=== PATIENT | male | born 1960 | race African-American/Black ===

== ENCOUNTER 2017-04-27 10:51 | Emergency (ER) | payer OTHER ==
--- NOTE | 2017-04-27 11:14 | PDOC ---
History of Present Illness - General Stated Complaint: LEG PAIN Time Seen by Provider: 04/27/17 11:12 History Source: Patient, Old Records Exam Limitations: No Limitations - History of Present Illness Initial Comments: 04/27/17 11:14 CHIEF COMPLAINT: Foot pain HISTORY OF PRESENT ILLNESS: This is a 56 year old male with a history of HTN, IDDM, and chronic left foot ulcers complicated by osteomyelitis and left great toe amputation in 2016 who presents complaining of worsening left foot pain for several weeks. He has been following closely with podiatry and wound care here and was scheduled for arterial and venous vascular studies today. He missed his appointment and is hoping to have the test done now. He denies fevers, redness around the wound, pus/discharge, or any other symptoms. V/s on arrival are notable for mildly elevated BP at 158/91. REVIEW OF SYSTEMS: GENERAL/CONSTITUTIONAL: No fever or chills. No weakness. No weight change. HEAD, EYES, EARS, NOSE AND THROAT: No change in vision. No ear pain or discharge. No sore throat. CARDIOVASCULAR: No chest pain or palpitations. RESPIRATORY: No cough, wheezing, or shortness of breath. GASTROINTESTINAL: No nausea, vomiting, diarrhea or constipation. GENITOURINARY: No dysuria, frequency, or change in urination. MUSCULOSKELETAL: No joint or muscle swelling or pain. No neck or back pain. SKIN: See HPI. NEUROLOGIC: No headache, vertigo, loss of consciousness, or loss of sensation. PSYCHIATRIC: No depression or anxiety. ENDOCRINE: No increased thirst. No abnormal weight change. HEMATOLOGIC/LYMPHATIC: No anemia, easy bleeding, or history of blood clots. ALLERGIC/IMMUNOLOGIC: No hives or skin allergy. No latex allergy. PHYSICAL EXAM: GENERAL: The patient is awake, alert, and fully oriented, in no acute distress. HEAD: Normal with no signs of trauma. ENT: Pupils equal, round and reactive to light, extraocular movements intact, sclera anicteric, conjunctiva clear. Neck supple. LUNGS: Clear to auscultation bilaterally. Normal excursion. No respiratory distress or use of accessory muscles. CV: RRR, S1/S2, no MRG. Cap refill < 2 sec. ABDOMEN: Soft, non-distended, non-tender. EXTREMITIES: Normal range of motion, no edema. NEUROLOGICAL: Normal speech, normal gait. CN II-XII grossly intact. PSYCH: Normal mood, normal affect. SKIN: 6 cm x 1.5cm open ulceration at base of amuptated left great toe with granulation tissue. No probing to bone. No discharge or purulence. No surrounding erythema. No tenderness to palpation. Past History - Past Medical History Allergies/Adverse Reactions: Allergies Allergy/AdvReac Type Severity Reaction Status Date / Time No Known Allergies Allergy Verified 04/27/17 11:15 Home Medications: Ambulatory Orders Insulin (Novolog) [Novolog -] 100 units SQ ASDIR 07/13/16 Furosemide [Lasix -] 40 mg PO DAILY 07/28/16 Glyburide 5 mg PO DAILY 07/28/16 Metformin HCl [Metformin HCl ER] 1,000 mg PO DAILY 07/28/16 Acetaminophen [Tylenol .Regular Strength -] 650 mg PO Q6H PRN #0 tablet Amlodipine Besylate [Norvasc -] 5 mg PO DAILY #0 tablet 08/08/16 Levothyroxine [Synthroid -] 50 mcg PO DAILY@0700 #0 tablet 08/08/16 Losartan Potassium [Cozaar -] 50 mg PO DAILY #0 tablet 08/08/16 Oxycodone HCl [Roxicodone -] 10 mg PO Q6H PRN #0 tablet MDD 40 08/08/16 Sitagliptin Phosphate [Januvia -] 100 mg PO DAILY@0700 #0 ud 08/08/16 Collagenase Clostridium Hist. [Santyl] 1 applic TP DAILY #90 oint...g. 12/16/16 Collagenase Clostridium Hist. [Santyl] 90 gm TP DAILY #1 tube 01/27/17 Asthma: Yes Diabetes: Yes Seizures: Yes - Surgical History Abdominal Surgery: Yes (UMBILICAL HERNIA) - Psycho/Social/Smoking Cessation Hx Anxiety: No Suicidal Ideation: No Smoking Status: Yes Smoking History: Former smoker Have you smoked in the past 12 months: No Number of Cigarettes Smoked Daily: 0 If you are a former smoker, when did you quit?: 3 YRS Hx Alcohol Use: No Drug/Substance Use Hx: No Substance Use Type: None Medical Decision Making - Medical Decision Making 04/27/17 12:03 A/P: 56 year old male with chronic left foot diabetic ulcer. -Discussed with Dr. Russell, will see patient in wound clinic now -Declines analgesia -Return precautions reviewed *DC/Admit/Observation/Transfer Diagnosis at time of Disposition: Diabetic foot ulcer Qualifiers: Diabetic foot ulcer location: midfoot Diabetes mellitus type: type 2 Laterality : left Non-pressure ulcer stage: limited to breakdown of skin Qualified Code(s) : E11.621 - Type 2 diabetes mellitus with foot ulcer - Discharge Dispostion Admit: No - Referrals Referrals: Puma Russell MD [Staff Physician] - - Patient Instructions Printed Discharge Instructions: DI for Diabetic Foot Ulcer Additional Instructions: -Go directly to the Wound Clinic on the 4th floor for further evaluation -Return here for fever, redness around the wound, pus coming from the wound, or any other concerning symptoms
[2017-04-27 11:18] VITALS: BP 158/91; PULSE 69; BMI 39.4
[2017-04-27 11:36] VITALS: TEMP 98.1
== END 2017-04-27 12:34 | disposition home or self-care (01) ==
LOC: JER 10:51
DX: E11.621 Type 2 diabetes mellitus with foot ulcer (principal); L97.521 Non-pressure chronic ulcer of other part of left foot limited to breakdown of skin; Z79.4 Long term (current) use of insulin; Z79.84 Long term (current) use of oral hypoglycemic drugs; E03.9 Hypothyroidism, unspecified; J45.909 Unspecified asthma, uncomplicated; I10 Essential (primary) hypertension
CPT/HCPCS: 99281-25

== ENCOUNTER 2017-05-28 12:06 | Day surgery (SDC) | payer OTHER ==
[2017-05-26 15:16] VITALS: BMI 46.3
[2017-05-28] MEDS ORDERED: LIDOCAINE HCL 1%, 10 MG/ML (20ML VIAL) ONE (12:19)
[2017-05-28] MEDS ORDERED: MIDAZOLAM HCL 2 MG/2 ML SINGLE DOSE VIAL ONE (13:26)
[2017-05-28] MEDS ORDERED: PROPOFOL 20 ML ONE (13:44)
[2017-05-28] MEDS ORDERED: ceFAZolin SODIUM 1 GM VIAL IVPB ONE (13:50)
[2017-05-28] MEDS ORDERED: ceFAZolin SODIUM 1 GM VIAL ONE ×2 (13:53→13:59)
[2017-05-28] MEDS ORDERED: MINERAL OIL 25 ML OIL ONE (13:59)
[2017-05-28] MEDS ORDERED: oxyCODONE HCL 5 MG TABLET PO PRN (14:23)
[2017-05-28] MEDS ORDERED: ONDANSETRON 4 MG/2 ML VIAL IVPUSH PRN (14:23)
--- NOTE | 2017-05-28 14:26 | OP ---
Operative Note - Note: Operative Date: 05/28/17 Pre-Operative Diagnosis: chronic left foot wound Operation: left foot STSG 3 cm squared Findings: clean base of wound Post-Operative Diagnosis: Same as Pre-op Surgeon: Shane Matos Anesthesia: Spinal Specimens Removed: none Estimated Blood Loss (mls): 0 Instrument used (Debridements only): curette
[2017-05-28] MEDS ORDERED: LACTATED RINGERS SOLUTION 1,000 ML IV SCH (14:30)
--- NOTE | 2017-05-28 15:12 | OP ---
DATE OF OPERATION: 05/28/2017 PREOPERATIVE DIAGNOSIS: Chronic left foot wound. POSTOPERATIVE DIAGNOSIS: Chronic left foot wound. PROCEDURE PERFORMED: Split thickness skin graft of the left foot 3 cm sq. SURGEON: Shane Matos MD UTILITY WORKER PRODUCTION: None. ESTIMATED BLOOD LOSS: Minimal. SPECIMEN: None. DESCRIPTION OF THE PROCEDURE: The patient was brought to the operating room. Spinal anesthetic was then inserted by Anesthesia. The patients left foot and thigh were prepped and draped in the usual sterile fashion. The wound bed on the first metatarsal area was curetted to repair it. It was measured at 3 x 1 cm. An appropriate area of skin was marked on the left thigh covered with mineral oil and a dermatome was used to shave a piece of skin with a thickness of 0.010. This was meshed and then placed onto the wound bed and secured in place using zhang. Good hemostasis was noted. Xeroform was applied to both beds. The heart side was covered with 4 x 4s and tape. The wound was covered with and 4 x 4s carefully secured in place using Kerlix and LEENA bandages. The patient was transferred to PACU in stable condition. Obdulio [id number]
[2017-05-28 16:10] VITALS: TEMP 97.6
[2017-05-28 17:20] VITALS: BP 147/92; PULSE 77
== END 2017-05-28 17:23 | disposition home or self-care (01) ==
LOC: JASU-SURG 12:06
PROVIDERS: ATTEND Surgery Vascular Surgery
PROC: 0HRNX74 Replacement of Left Foot Skin with Autologous Tissue Substitute, Partial Thickness, External Approach (ICD-10-PCS; principal; 2017-05-28 13:00)
DX: L98.499 Non-pressure chronic ulcer of skin of other sites with unspecified severity (principal)
CPT/HCPCS: 94760

== ENCOUNTER 2019-10-17 10:00 | Inpatient (IN) | payer MEDICARE, OTHER ==
--- NOTE | 2019-10-17 11:25 | EKG ---
Test Reason : Blood Pressure : / mmHG Vent. Rate : 085 BPM Atrial Rate : 085 BPM P-R Int : 140 ms QRS Dur : 084 ms QT Int : 348 ms P-R-T Axes : 040 -10 053 degrees QTc Int : 414 ms NORMAL SINUS RHYTHM NORMAL ECG WHEN COMPARED WITH ECG OF 28-JUL-2016 11:35, NONSPECIFIC T WAVE ABNORMALITY NO LONGER EVIDENT IN ANTERIOR LEADS Confirmed by Caro Noble ([id number]) on 10/17/2019 11:25:20 AM Referred By: Confirmed By:Caro Noble
--- NOTE | 2019-10-17 12:16 | PDOC ---
History of Present Illness - General Chief Complaint: SIRS, Suspected/Possible Stated Complaint: SHORTNESS OF BREATH VOMITING COUGH Time Seen by Provider: 10/17/19 10:16 History Source: Patient Exam Limitations: No Limitations - History of Present Illness Initial Comments: 10/17/19 12:14 59M with a PMH of HTN, DM, and hypothyroidism who presents to the ER with complaints of shortness of breath. The patient states that he's had 1 week of worsening shortness of breath. The shortness of breath is resting and with exertion, as well as orthopneic. The patient denies CP, fever, chills, productive cough, palpitations, lightheadedness. He admits to 5-6 bouts of NBNB vomiting, as well as 2-3 bouts of diarrhea with normal BM's inbetween. Denies abdominal pain. Past History - Past Medical History Allergies/Adverse Reactions: Allergies Allergy/AdvReac Type Severity Reaction Status Date / Time No Known Allergies Allergy Verified 10/17/19 10:47 Home Medications: Ambulatory Orders metFORMIN HCL [Metformin HCl ER] 1,000 mg PO DAILY 07/28/16 Amlodipine Besylate [Norvasc -] 5 mg PO DAILY #0 tablet 08/08/16 Sitagliptin Phosphate [Januvia -] 100 mg PO DAILY@0700 #0 ud 08/08/16 Albuterol Sulfate Inhaler - [Ventolin Hfa Inhaler -] 1 - 2 inh PO PRN PRN 05/28/17 Glipizide 5 mg PO DAILY 05/28/17 Insulin Glargine,Hum.rec.anlog [Lantus Solostar PEN (NF)] 40 units SQ BID Levothyroxine [Synthroid -] 75 mcg PO DAILY@0700 05/28/17 Losartan Potassium [Cozaar -] 100 mg PO DAILY 05/28/17 Ammonium Lactate Cream [Lac-Hydrin 12% *Cream*] 1 applic TP DAILY #1 tube 09/04 Naftifine HCl [Naftin] 60 gm TP DAILY #1 tube 05/12/19 Anemia: No Asthma: Yes Cancer: No Cardiac Disorders: No CVA: No COPD: No CHF: No Dementia: No Diabetes: Yes GI Disorders: No Disorders: No HTN: Yes Hypercholesterolemia: No Liver Disease: No Seizures: Yes Thyroid Disease: Yes (HYPO) - Surgical History Abdominal Surgery: Yes (UMBILICAL HERNIA) - Immunization History Immunization Up to Date: Yes - Psycho Social/Smoking Cessation Hx Smoking Status: Yes Smoking History: Former smoker Have you smoked in the past 12 months: No Number of Cigarettes Smoked Daily: 0 If you are a former smoker, when did you quit?: 3 YRS Information on smoking cessation initiated: No Hx Alcohol Use: No Drug/Substance Use Hx: No Substance Use Type: None Hx Substance Use Treatment: No Review of Systems - Review of Systems Able to Perform ROS?: Yes Comments:: 10/17/19 12:47 GENERAL/CONSTITUTIONAL: No fever or chills. No weakness. HEAD, EYES, EARS, NOSE AND THROAT: No change in vision. No ear pain or discharge. No sore throat. CARDIOVASCULAR: No chest pain, palpitations, or lightheadedness. RESPIRATORY: + for cough and SOB. No wheezing or hemoptysis. GASTROINTESTINAL: + for vomiting and diarrhea. No abdominal pain, nausea, or constipation. GENITOURINARY: No dysuria, frequency, hematuria, or change in urination. MUSCULOSKELETAL: No joint or muscle swelling or pain. No neck or back pain. SKIN: No rash or lesions. NEUROLOGIC: No headache, numbness, tingling, focal weakness, loss of consciousness, or change in strength/sensation. Is the patient limited Romanian proficient: No *Physical Exam - Vital Signs Last Vital Signs Temp Pulse Resp BP Pulse Ox 98.7 F 87 23 H 146/77 90 L 10/17/19 10:28 10/17/19 10:28 10/17/19 10:28 10/17/19 10:51 10/17/19 10:51 - Physical Exam 10/17/19 12:47 GENERAL: Well developed, well nourished. Awake and alert. No acute distress. Morbidly obese. HEENT: Normocephalic, atraumatic. Hearing grossly normal. Moist mucous membranes. PERRLA, EOMI. No conjunctival pallor. Sclera are non-icteric. NECK: Supple. Full ROM. No JVD. CARDIOVASCULAR: Regular rate and rhythm. No murmurs, rubs, or gallops. PULMONARY: No evidence of respiratory distress. Decreased lung sounds bilaterally. No wheezing, rales, or rhonchi. ABDOMINAL: Soft. Non-tender. Distended. No rebound or guarding. GENITOURINARY: No CVA tenderness bilaterally. MUSCULOSKELETAL: Normal range of motion at all joints. No bony deformities or tenderness. EXTREMITIES: No cyanosis. No clubbing. 1+ edema. No calf tenderness or swelling. SKIN: Warm and dry. Normal capillary refill. No rashes. No jaundice. NEUROLOGICAL: Alert, awake, appropriate. Cranial nerves 2-12 intact. Gait is normal without ataxia. PSYCHIATRIC: Cooperative. Good eye contact. Appropriate mood and affect. ED Treatment Course - LABORATORY CBC & Chemistry Diagram: 10/17/19 12:11 10/17/19 15:53 - RADIOLOGY Radiology Studies Ordered: Category Date Time Status CHEST X-RAY PORTABLE* [RAD] Stat Radiology 10/17/19 10:16 Completed Medical Decision Making - Medical Decision Making 10/17/19 12:48 59M with MMP who presents to the ER for 1 week of shortness of breath. Influenza positive. Concern for CHF/other causes of SOB. Pending CMP. No WBC. Pt well appearing otherwise but noted to be hypoxic and tachycardic on arrival. CXR shows bibasilar atelectic changes. 10/17/19 13:47 CMP and cardiac profile show multiple abnormalities. Pt has elevated Cr, showing HAYLEY. Pt has slightly elevated troponin 0.33, asa given. Pt has elevated CK >57074. POCUS shows collapsable IVC. Giving 1 L LR. Nephro paged. 10/17/19 14:08 Case d/w nephro who agrees w/ aggressive fluid resuscitation. Will admit for HAYLEY, rhabdo, and troponemia. 10/17/19 15:28 Dr. Perez paged x 2. 10/17/19 20:03 Dr. Perez paged x 3. Hospitalist microblogged for admission. 10/17/19 20:[address] Panda for admission. 10/17/19 20:44 Upon reviewing notes w/ hospitalist team, it was noted that Dr. Franklin, day attending, had endorsed the patient to Dr. Perez. However, no orders were placed and the patient was not seen. RN's notified me and I paged the hospitalist who accept the admission and will care for the patient. Discharge - Discharge Information Problems reviewed: Yes Clinical Impression/Diagnosis: Influenza, Acute kidney injury, Elevated troponin Condition: Guarded - Admission Yes - Follow up/Referral - Patient Discharge Instructions - Post Discharge Activity
[2019-10-17 12:27] LABS: BASO % 0.5 % (0-2.0); HEMATOCRIT 37.9 % (35.4-49); HEMOGLOBIN 12.3 GM/dL (11.7-16.9); LYMPH % 11.2 % (8-40); MCH 29.1 pg (25.7-33.7); MCHC 32.3 g/dl (32.0-35.9); MEAN PLT VOLUME 9.3 fl (7.5-11.1); MONO % 6.6 % (3.8-10.2); NEUT % 81.7 % (42.8-82.8); PLATELET COUNT 177 K/MM3 (134-434); RBC 4.21 M/mm3 (4.00-5.60); RDW 14.6 % (11.9-15.9); WHITE BLOOD COUNT 9.8 K/mm3 (4.0-10.0)
[2019-10-17 12:41] LABS: INR 1.01 (0.83-1.09); PROTHROMBIN TIME (PATIENT) 11.9 SEC (9.7-13.0)
[2019-10-17 12:44] LABS: ACTIVATED PTT 27.5 SECONDS (25.2-36.5)
[2019-10-17 13:23] LABS: ALBUMIN 2.2 g/dl (3.4-5.0); ALK PHOS 77 U/L (45-117); ANION GAP 4 MMOL/L (8-16); BILIRUBIN,TOTAL 0.2 mg/dL (0.2-1); BLOOD UREA NITROGEN 48.1 mg/dL (7-18); CALCIUM 7.6 mg/dL (8.5-10.1); CHLORIDE 106 mmol/L (98-107); CO2 31 mmol/L (21-32); CREATININE 3.2 mg/dL (0.55-1.3); GLUCOSE,RANDOM 187 mg/dL (74-106); MAGNESIUM 2.4 mg/dL (1.8-2.4); POTASSIUM 4.9 mmol/L (3.5-5.1); SGOT/AST 157 U/L (15-37); SGPT/ALT 79 U/L (13-61); SODIUM 141 mmol/L (136-145); TOT PROT 6.8 g/dl (6.4-8.2)
[2019-10-17] MEDS ORDERED: LACTATED RINGERS SOLUTION 1000 ML INFUS.BAG IV ONE (13:27)
[2019-10-17] MEDS ORDERED: ASPIRIN COATED 81 MG TABLET.EC PO ONE (13:31)
[2019-10-17] MEDS ORDERED: ASPIRIN COATED 81 MG TABLET.EC ONE ×2 (13:54→14:11)
--- NOTE | 2019-10-17 14:08 | PDOC ---
Documentation entered by Arlene Petersen SCRIBE, acting as scribe for Arian Franklin MD. Arian Franklin MD: This documentation has been prepared by the Nicola adhikari Brenda, SCRIBE, under my direction and personally reviewed by me in its entirety. I confirm that the documentation accurately reflects all work, treatment, procedures, and medical decision making performed by me. Attending Attestation - Resident Resident Name: RushlalaDre reich - ED Attending Attestation I have performed the following: I have examined & evaluated the patient, The case was reviewed & discussed with the resident, I agree w/resident's findings & plan, Exceptions are as noted - HPI HPI: 10/17/19 11:09 59y M history of diabetes, hypertension, hypothyroidism, sz, asthma presents with approximately 1 week of shortness of breath, nausea, vomiting. Patient notes that the shortness of breath seems worse when he is laying down, also noted some increased leg swelling there is no associated dyspnea on exertion, palpitations, lightheadedness, fever, chills. Patient also endorses several episodes of diarrhea that is nonbloody, non-melanotic, approximately 4 episodes a day, also endorses proximally 1 episode a day of nonbilious nonbloody vomiting. Patient denied any abdominal pain until today. On exam the patient is in no acute distress however he was noted to be hypoxic upon arrival. He was no acute respiratory distress, he does have some scattered crackles at the bases. His abdomen was mildly diffusely tender especially in the left lower quadrant. Differential for the patient's symptoms includes possible CHF exacerbation, influenza, pneumonia, cardiac/acs for his cause of shortness of breath His abdominal pain may be secondary to gastroenteritis, consider CT as the patient is mildly tender in hte LLQ. Will obtain UA to screen for UTI - Physicial Exam PE: 10/17/19 11:45 GENERAL: The patient is awake, alert, and fully oriented, Nontoxic - in no acute distress. HEAD: Normocephalic, atraumatic. EYES: extraocular movements intact, sclera anicteric, conjunctiva clear. ENT: Normal voice, Moist mucous membranes. NECK: Normal range of motion, supple without lymphadenopathy, JVD, or masses. LUNGS: Breath sounds equal, clear to auscultation bilaterally. No wheezes, no crackles, no rales. HEART: Regular rate and rhythm, normal S1 and S2 without murmur, rub or gallop. ABDOMEN: (+) Mild lower quadrant tenderness. Soft, normoactive bowel sounds. No guarding, no rebound. No masses. EXTREMITIES: Normal range of motion, no edema. No clubbing or cyanosis. No cords, erythema, or tenderness. NEUROLOGICAL: No facial asymmetry, Normal speech. PSYCH: Normal mood, normal affect. SKIN: Warm, Dry, normal turgor, no rashes or lesions noted. - Critical Care Time Total Critical Care Time: 45 Critical Care Statement: The care of this patient involved high complexity decision making to prevent further life threatening deterioration of the patient's condition and/or to evaluate & treat vital organ system(s) failure or risk of failure. - Medical Decision Making 10/17/19 13:12 The patient is positive for influenza, awaiting the rest of his lab work, the patient was placed in isolation The patient was noted to be mildly hypoxic she is he is correcting well on 4 L nasal cannula. 10/17/19 14:07 Case was discussed with renal recommends aggressive fluid hydration for the patient's rhabdomyolysis. We will continue to monitor his respiratory status Laboratory Tests 10/17/19 10/17/19 10:23 12:11 BUN 48.1 H Creatinine 3.2 H Creatine Kinase > 06577 H CK-MB (CK-2) 5.2 H Troponin I 0.33 H B-Natriuretic Peptide 4162.6 H The patient troponin is elevated 0.33, there is no ischemic changes on his EKG I suspect this may be secondary to his renal dysfunction. We will repeat his troponin. Patient will be admitted for further management. Awaiting callback from Dr. Perez 10/17/19 16:44 pt formerly had a IVC US that showed collapsable IVC. will continue hydratio nand reassess for CHF case dw dr. Perez, agree with admission Heart Score/ECG Review - ECG Impressions Comment:: 10/17/19 11:18 Twelve-lead EKG was performed and reviewed by me. There is normal sinus rhythm with a normal rate. Rate of 85 The axis is normal. The intervals are normal. There is normal R wave progression There are no ST or T wave abnormalities. Impression: Normal twelve-lead EKG
[2019-10-17] MEDS ORDERED: ASPIRIN 81 MG CHEWABLE TABLETS ONE (14:09)
[2019-10-17 14:42] LABS: EPI CELLS 8.7 /HPF (0-5/HPF); HYALINE CASTS 36 /lpf (0-8); URINE APPEARANCE CLOUDY; URINE BACTERIA 3.3 /hpf (NEGATIVE); URINE BILIRUBIN NEGATIVE (NEGATIVE); URINE COLOR YELLOW; URINE GLUCOSE (UA) TRACE (NEGATIVE); URINE KETONE NEGATIVE (NEGATIVE); URINE LEUK ESTERASE NEGATIVE (NEGATIVE); URINE NITRITE NEGATIVE (NEGATIVE); URINE PROTEIN 4+ (NEGATIVE); URINE RBC 47 /hpf (0-4); URINE WBC 7 /hpf (0-5)
--- NOTE | 2019-10-17 16:14 | CONSULT ---
Consult Consult Specialty:: Nephrology Reason for Consultation:: HAYLEY on CKD - History of Present Illness Chief Complaint: shortness of breath History of Present Illness: Pt is a 59 year old male with pmhx of htn, dm and hypothyroidism who presents to the ER with shortness of breath. He says that is has been getting worse over the last week. 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 He denies nsiad use. He has had multiple bouts or vomiting and diarrhea. He was found to be positive for the flu. He denies chest pain. He denies fevers but gets chills. - History Source History Provided By: Patient, Medical Record - Past Medical History Cardio/Vascular: Yes: HTN Endocrine: Yes: Diabetes Mellitus - Alcohol/Substance Use Hx Alcohol Use: No - Smoking History Smoking history: Former smoker Have you smoked in the past 12 months: No Aproximately how many cigarettes per day: 0 If you are a former smoker, when did you quit?: 3 YRS Home Medications - Allergies Allergies/Adverse Reactions: Allergies Allergy/AdvReac Type Severity Reaction Status Date / Time No Known Allergies Allergy Verified 10/17/19 10:47 - Home Medications Home Medications: Ambulatory Orders metFORMIN HCL [Metformin HCl ER] 1,000 mg PO DAILY 07/28/16 Amlodipine Besylate [Norvasc -] 5 mg PO DAILY #0 tablet 08/08/16 Sitagliptin Phosphate [Januvia -] 100 mg PO DAILY@0700 #0 ud 08/08/16 Albuterol Sulfate Inhaler - [Ventolin Hfa Inhaler -] 1 - 2 inh PO PRN PRN Glipizide 5 mg PO DAILY 05/28/17 Insulin Glargine,Hum.rec.anlog [Lantus Solostar PEN (NF)] 40 units SQ BID Levothyroxine [Synthroid -] 75 mcg PO DAILY@0700 05/28/17 Losartan Potassium [Cozaar -] 100 mg PO DAILY 05/28/17 Ammonium Lactate Cream [Lac-Hydrin 12% *Cream*] 1 applic TP DAILY #1 tube Naftifine HCl [Naftin] 60 gm TP DAILY #1 tube 05/12/19 Family Medical History Family History: Denies Review of Systems - Review of Systems Constitutional: reports: Malaise Eyes: reports: No Symptoms HENT: reports: No Symptoms Neck: reports: No Symptoms Cardiovascular: reports: Edema Respiratory: reports: Cough, SOB on Exertion Genitourinary: reports: No Symptoms Musculoskeletal: reports: No Symptoms Endocrine: reports: No Symptoms Psychiatric: reports: No Symptoms Physical Exam Vital Signs: Vital Signs Temperature 98.7 F 10/17/19 10:28 Pulse Rate 77 10/17/19 14:49 Respiratory Rate 20 10/17/19 14:49 Blood Pressure 108/63 10/17/19 14:49 O2 Sat by Pulse Oximetry (%) 94 L 10/17/19 14:49 Constitutional: Yes: Calm Eyes: Yes: Conjunctiva Clear HENT: Yes: Atraumatic Neck: Yes: Supple Cardiovascular: Yes: S1, S2 Respiratory: Yes: On Nasal O2 Gastrointestinal: Yes: Soft Renal/: Yes: WNL Musculoskeletal: Yes: WNL Edema: Yes Edema: LLE: 1+, RLE: 1+ Neurological: Yes: Oriented Psychiatric: Yes: Oriented Labs: CBC, BMP 10/17/19 12:11 10/17/19 10:23 Laboratory Tests 07/28/16 07/31/16 08/02/16 10:34 06:00 06:40 Hgb Creatinine 1.7 H 1.7 H 1.3 D Urine Protein Urine Blood Influenza A (Rapid) Influenza B (Rapid) 08/04/16 08/07/16 08/08/16 06:30 09:35 06:30 Hgb Creatinine 1.6 H D 1.2 D 1.9 H D Urine Protein Urine Blood Influenza A (Rapid) Influenza B (Rapid) 12/14/18 10/17/19 10/17/19 10:58 10:23 11:29 Hgb Creatinine 2.6 H 3.2 H Urine Protein Urine Blood Influenza A (Rapid) Positive A Influenza B (Rapid) Negative 10/17/19 10/17/19 12:11 14:04 Hgb 12.3 Creatinine Urine Protein 4+ H Urine Blood 3+ H Influenza A (Rapid) Influenza B (Rapid) Imaging - Results Chest X-ray: Report Reviewed Problem List - Problems (1) HAYLEY (acute kidney injury) Code(s): N17.9 - ACUTE KIDNEY FAILURE, UNSPECIFIED (2) CKD (chronic kidney disease) Code(s): N18.9 - CHRONIC KIDNEY DISEASE, UNSPECIFIED Assessment/Plan Impression 1. HAYLEY 2. CKD 3. influenza 4. rhabdo 5. chf 6. dyspnea 7. vomiting and diarrhea 8. nephrotic range proteinuria Plan - check ua and lytes - pt did get fluids for rhabo - cont fluids, can give lasix as well - monitor renal function - check renal ultrasound - repeat cxr in am - admit to hospital - check prt to small brake form operator ratio - stop metformin - hold losartan for now
[2019-10-17] MEDS ORDERED: FUROSEMIDE 40 MG/4 ML INJECTABLE VIAL IVPUSH ONE (16:18)
[2019-10-17] MEDS ORDERED: FUROSEMIDE 40 MG/4 ML INJECTABLE VIAL ONE (16:26)
[2019-10-17] MEDS ORDERED: SODIUM CHLORIDE 0.45% 1,000 ML IV SCH (16:30)
[2019-10-17 16:44] LABS: BLOOD UREA NITROGEN 52.1 mg/dL (7-18); CALCIUM 8.2 mg/dL (8.5-10.1); CREATININE 3.4 mg/dL (0.55-1.3); POTASSIUM 4.9 mmol/L (3.5-5.1)
--- NOTE | 2019-10-17 20:57 | PN ---
Teaching Attending Note Name of Resident: Margy Up ATTENDING PHYSICIAN STATEMENT I saw and evaluated the patient. I reviewed the resident's note and discussed the case with the resident. I agree with the resident's findings and plan as documented. SUBJECTIVE: Patient is a 59 year old man with PMH of NIDDM, Hypertension, Hypothyroidism, Seizure disorder and Asthma who presents with 1 week of shortness of breath, nausea and vomiting. Patient notes that the shortness of breath seems worse when he is laying down. Also noted some increased leg swelling but there is no associated dyspnea on exertion, palpitations, lightheadedness, fever or chills. Patient has had several episodes of diarrhea that is nonbloody, non-melanotic , approximately 4 episodes a day as well as daily nonbilious nonbloody vomiting. Abdominal pain commenced today. Has had contact with his son who is hospitalized with Flu. Denies alcohol, tobacco or illicit drug use. No recent travels. On arrival in the ER he was noted to be hypoxic. OBJECTIVE: Alert Vital Signs Period Temp Pulse Resp BP Sys/Rios Pulse Ox Last 24 Hr 98.7 F 76-87 20-23 108-146/63-77 4-97 HEENT: No Jaundice, eye redness or discharge, PERRLA, EOMI. Normocephalic, atraumatic. External ears are normal and hearing is grossly intact. No nasal discharge. Neck: Supple, nontender. No palpable adenopathy or thyromegaly. No JVD Chest: Good effort. Bibasilar crackles. Clear to percussion. Heart: Regular. No S3, rub or murmur Abdomen: Not distended, soft, suprapubic and LLQ tenderness and no HSM. No rebound or guarding. Normal bowel sounds. Ext: Peripheral pulses intact. Leg edema. Skin: Warm and dry. No petechiae, rash or ecchymosis. Neuro: Alert. Oriented x3. CN 2-12 grossly intact. Sensation grossly intact in all four extremities and DTR are symmetric. Psych: Appropriate mood and affect. Good insight. Current Medications Generic Name Dose Route Start Last Admin Trade Name Freq PRN Reason Stop Dose Admin Albuterol/Ipratropium 1 amp 10/17/19 21:52 Duoneb - NEB Q4H PRN SHORTNESS OF BREATH Albuterol/Ipratropium 1 amp 10/18/19 08:00 Duoneb - NEB RTID JOSE ANGEL Heparin Sodium (Porcine) 5,000 unit 10/18/19 02:00 Heparin - SQ Q8H-IV JOSE ANGEL Sodium Chloride 1,000 mls @ 50 mls/hr 10/17/19 16:30 10/17/19 16:41 1/2 Normal Saline IV 10/18/19 22:00 50 mls/hr ASDIR JOSE ANGEL Administration Insulin Aspart 0 vial 10/17/19 22:00 Novolog Vial Sliding Scale - SQ ACHS [facility] Protocol Home Medications Medication Instructions Recorded metFORMIN HCL [Metformin HCl ER] 1,000 mg PO DAILY 07/28/16 Amlodipine Besylate [Norvasc -] 5 mg PO DAILY #0 tablet 08/08/16 Sitagliptin Phosphate [Januvia -] 100 mg PO DAILY@0700 #0 ud 08/08/16 Albuterol Sulfate Inhaler - 1 - 2 inh PO PRN PRN 05/28/17 [Ventolin Hfa Inhaler -] Glipizide 5 mg PO DAILY 05/28/17 Insulin Glargine,Hum.rec.anlog 40 units SQ BID 05/28/17 [Lantus Solostar PEN (NF)] Levothyroxine [Synthroid -] 75 mcg PO DAILY@0700 05/28/17 Losartan Potassium [Cozaar -] 100 mg PO DAILY 05/28/17 Ammonium Lactate Cream [Lac-Hydrin 1 applic TP DAILY #1 tube 11/15/18 12% *Cream*] Naftifine HCl [Naftin] 60 gm TP DAILY #1 tube 05/12/19 Abnormal Lab Results 10/17/19 10/17/19 10/17/19 10:23 11:29 12:11 Carbon Dioxide Anion Gap 4 L BUN 48.1 H Creatinine 3.2 H Random Glucose 187 H Calcium 7.6 L AST 157 H ALT 79 H Creatine Kinase > 75147 H CK-MB (CK-2) 5.2 H Troponin I 0.33 H B-Natriuretic Peptide 4162.6 H Albumin 2.2 L Urine Protein Urine Blood U Random Total Protein Influenza A (Rapid) Positive A 10/17/19 10/17/19 10/17/19 14:04 15:53 15:53 Carbon Dioxide 33 H Anion Gap 3 L BUN 52.1 H Creatinine 3.4 H Random Glucose 161 H Calcium 8.2 L AST ALT Creatine Kinase > 55372 H CK-MB (CK-2) 5.2 H Troponin I 0.37 H B-Natriuretic Peptide Albumin Urine Protein 4+ H Urine Blood 3+ H U Random Total Protein Influenza A (Rapid) 10/17/19 18:35 Carbon Dioxide Anion Gap BUN Creatinine Random Glucose Calcium AST ALT Creatine Kinase CK-MB (CK-2) Troponin I B-Natriuretic Peptide Albumin Urine Protein Urine Blood U Random Total Protein 748.7 H Influenza A (Rapid) ASSESSMENT AND PLAN: 1. Influenza A infection/Rhabdomyolysis/HAYLEY - Rhabdomyolysis and "gastroenteritis" may be due to Flu infection. Patient is outside the window for Tamiflu. HAYLEY likely due to volume loss superimposed on underlying CKD. Seen by Behaviour Support Teacher in the ER and recommended 1/2 NS and IV lasix. Will avoid nephrotoxic agents such as NSAIDS, aminoglycosides, contrast dyes and certain Alternative medicine products. Will get CT abdomen/pelvis to evaluate diarrhea and abdominal pain. Monitor calcium and phosphate and trend CPK. Send stool for studies including C.Diff, trend LFTs and get hepatitis serology. Elevated troponin likely due to demand ischemia and reduced clearance. EKG shows NSR with no significant ST-T wave changes. Will trend troponin and rule out ACS and get ECHO. CXR shows cardiomegaly, bibasilar atelectasis and congetsive changes. Will continue comprehensive care for all of patients comorbid conditions including Synthroid for hypothyroidism and seizure precautions. 2. Hypoalbuminemia - Possibly due to combined effects of proteinuria, malnutrition and inflammation associated with comorbid chronic conditions. Will ensure adequate dietary protein intake and also consult hide dropper. 3. DM For now, we will hold the home diabetes drugs and implement sliding scale insulin regimen. Provide comprehensive diabetes care with patient teaching and counseling about the importance of adherence to prescribed diabetes regimen, euglycemia, eye care and foot care. 4. Morbid Obesity Counseled on the risks associated with morbid obesity. Will provide patient all the necessary assistance, counseling and positive reinforcement to facilitate weight loss. Consult hide dropper. 5. Hypertension - Restart suitable outpatient antihypertensive drugs when clinically appropriate. Revise regimen to ensure [id number] excellent BP control and health counselor patient on the injurious effects of uncontrolled hypertension. Nonpharmacologic measures to control hypertension like weight loss , salt restriction and exercise discussed. Importance of adherence to treatment regimen and attainment of normotension emphasized. 6. DVT prophylaxis - Heparin 5000u sq tid. 7. Advance directives - Full code
[2019-10-17] MEDS ORDERED: ALBUTEROL SO4 2.5/IPRATROPIUM 0.5 INH SOL 3 ML VIAL.NEB. NEB PRN (21:52)
--- NOTE | 2019-10-17 21:58 | HP ---
CHIEF COMPLAINT: PCP: HISTORY OF PRESENT ILLNESS: 59 y.o. M PMH HTN, DM type 2, hypothyroidism, seizure d/o, asthma presenting for 1 week of SOB, nausea and NBNB emesis x3 episodes, worsening LE edema and diarrhea x 4 days. On arrival patient hypoxic to 84%, improved to 98% on 2L NC. Pt also endorses a cough productive of clear sputum which he has been experiencing for about a week. Denies orthopnea/ PND. He notes his son is currently hospitalized with the flu and they live together. In ED found to be in aute rhabdo CK>14,000-- no inciting events, no recent falls/ traumas/ seizures. The patient says he has not had a seizure in 5 years but is not currently on AEDs. The patient says he has been compliant with all home medications. ER course was notable for: (1) CK>14,000 (2) HAYLEY cr 3.2, trop .33 (3) Influenza A + (4) UA: 4+ protein, 3+ blood PAST MEDICAL HISTORY: as per hpi PAST SURGICAL HISTORY: cauterization of nasal vessels Social History: Smoking: former smoker Alcohol: no Drugs: no Allergies No Known Allergies Allergy (Verified 10/17/19 10:47) HOME MEDICATIONS: Home Medications Medication Instructions Recorded metFORMIN HCL [Metformin HCl ER] 1,000 mg PO DAILY 07/28/16 Amlodipine Besylate [Norvasc -] 5 mg PO DAILY #0 tablet 08/08/16 Sitagliptin Phosphate [Januvia -] 100 mg PO DAILY@0700 #0 ud 08/08/16 Albuterol Sulfate Inhaler - 1 - 2 inh PO PRN PRN 05/28/17 [Ventolin Hfa Inhaler -] Glipizide 5 mg PO DAILY 05/28/17 Insulin Glargine,Hum.rec.anlog 40 units SQ BID 05/28/17 [Lantus Solostar PEN (NF)] Levothyroxine [Synthroid -] 75 mcg PO DAILY@0700 05/28/17 Losartan Potassium [Cozaar -] 100 mg PO DAILY 05/28/17 Ammonium Lactate Cream [Lac-Hydrin 1 applic TP DAILY #1 tube 11/15/18 12% *Cream*] Naftifine HCl [Naftin] 60 gm TP DAILY #1 tube 05/12/19 REVIEW OF SYSTEMS + nausea, SOB, NBNB emesis, nonbloody diarrhea Denies headache/ palpitations/ chest pain/ chills/ diaphoresis/ fevers PHYSICAL EXAMINATION Vital Signs - 24 hr 10/17/19 10/17/19 10/17/19 10:28 10:51 11:08 Temperature 98.7 F Pulse Rate 87 Pulse Rate [ 79 Left Radial] Respiratory 23 H 20 Rate Blood Pressure 146/77 146/77 Blood Pressure [Left Arm] Blood Pressure 129/66 [Right Arm] O2 Sat by Pulse 90 L 90 L Oximetry (%) 10/17/19 10/17/19 10/17/19 11:30 14:49 19:29 Temperature Pulse Rate Pulse Rate [ 77 77 76 Left Radial] Respiratory 21 H 20 22 H Rate Blood Pressure Blood Pressure 108/63 118/68 [Left Arm] Blood Pressure 124/72 [Right Arm] O2 Sat by Pulse 4 L 94 L 84 L Oximetry (%) 10/17/19 19:39 Temperature Pulse Rate Pulse Rate [ Left Radial] Respiratory Rate Blood Pressure Blood Pressure [Left Arm] Blood Pressure [Right Arm] O2 Sat by Pulse 97 Oximetry (%) GENERAL: Awake, alert, and fully oriented, in no acute distress. HEENT: NCAT MMM sclera anicteric LUNGS: B/l coarse lung sounds. No wheezes. No accessory muscle use. HEART: RRR, normal S1 and S2 without murmurs ABDOMEN: Obese. Soft, normoactive bowel sounds. Suprapubic & LLQ tenderness to palpation. EXTREMITIES: 2+ pulses, warm, well-perfused. No calf tenderness. 1+ pitting edema b/l LE. 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 PSYCHIATRIC: Appropriate mood and affect. SKIN: no rashes or lesions noted Laboratory Results - last 24 hr 10/17/19 10/17/19 10/17/19 10:23 11:29 12:11 WBC RBC Hgb Hct MCV MCH MCHC RDW Plt Count MPV Absolute Neuts (auto) Neutrophils % Lymphocytes % Monocytes % Eosinophils % Basophils % Nucleated RBC % PT with INR 11.90 INR 1.01 PTT (Actin FS) 27.5 Sodium 141 Potassium 4.9 Chloride 106 Carbon Dioxide 31 Anion Gap 4 L BUN 48.1 H Creatinine 3.2 H Est GFR (CKD-EPI)AfAm 23.29 Est GFR (CKD-EPI)NonAf 20.10 Random Glucose 187 H Calcium 7.6 L Magnesium 2.4 Total Bilirubin 0.2 AST 157 H ALT 79 H Alkaline Phosphatase 77 Creatine Kinase > 05581 H Creatine Kinase Index 0.0 CK-MB (CK-2) 5.2 H Troponin I 0.33 H B-Natriuretic Peptide Total Protein 6.8 Albumin 2.2 L Urine Color Urine Appearance Urine pH Ur Specific Mathews Urine Protein Urine Glucose (UA) Urine Ketones Urine Blood Urine Nitrite Urine Bilirubin Urine Urobilinogen Ur Leukocyte Esterase Urine WBC (Auto) Urine RBC (Auto) Urine Casts (Auto) U Pathogenic Cast Auto U Epithel Cells (Auto) Urine Bacteria (Auto) U Random Total Protein Urine Creatinine Protein/Creatinin Ratio Influenza A (Rapid) Positive A Influenza B (Rapid) Negative 10/17/19 10/17/19 10/17/19 12:11 12:11 14:04 WBC 9.8 RBC 4.21 Hgb 12.3 Hct 37.9 MCV 90.0 MCH 29.1 MCHC 32.3 RDW 14.6 Plt Count 177 D MPV 9.3 Absolute Neuts (auto) 8.0 Neutrophils % 81.7 D Lymphocytes % 11.2 D Monocytes % 6.6 Eosinophils % 0.0 D Basophils % 0.5 Nucleated RBC % 0 PT with INR INR PTT (Actin FS) Sodium Potassium Chloride Carbon Dioxide Anion Gap BUN Creatinine Est GFR (CKD-EPI)AfAm Est GFR (CKD-EPI)NonAf Random Glucose Calcium Magnesium Total Bilirubin AST ALT Alkaline Phosphatase Creatine Kinase Creatine Kinase Index CK-MB (CK-2) Troponin I B-Natriuretic Peptide 4162.6 H Total Protein Albumin Urine Color Yellow Urine Appearance Cloudy Urine pH 6.0 Ur Specific Mathews 1.029 Urine Protein 4+ H Urine Glucose (UA) Trace Urine Ketones Negative Urine Blood 3+ H Urine Nitrite Negative Urine Bilirubin Negative Urine Urobilinogen 1.0 Ur Leukocyte Esterase Negative Urine WBC (Auto) 7 Urine RBC (Auto) 47 Urine Casts (Auto) 36 U Pathogenic Cast Auto None U Epithel Cells (Auto) 8.7 Urine Bacteria (Auto) 3.3 U Random Total Protein Urine Creatinine Protein/Creatinin Ratio Influenza A (Rapid) Influenza B (Rapid) 10/17/19 10/17/19 10/17/19 15:53 15:53 18:35 WBC RBC Hgb Hct MCV MCH MCHC RDW Plt Count MPV Absolute Neuts (auto) Neutrophils % Lymphocytes % Monocytes % Eosinophils % Basophils % Nucleated RBC % PT with INR INR PTT (Actin FS) Sodium 142 Potassium 4.9 Chloride 106 Carbon Dioxide 33 H Anion Gap 3 L BUN 52.1 H Creatinine 3.4 H Est GFR (CKD-EPI)AfAm 21.65 Est GFR (CKD-EPI)NonAf 18.68 Random Glucose 161 H Calcium 8.2 L Magnesium Total Bilirubin AST ALT Alkaline Phosphatase Creatine Kinase > 60470 H Creatine Kinase Index 0.0 CK-MB (CK-2) 5.2 H Troponin I 0.37 H B-Natriuretic Peptide Total Protein Albumin Urine Color Urine Appearance Urine pH Ur Specific Mathews Urine Protein Urine Glucose (UA) Urine Ketones Urine Blood Urine Nitrite Urine Bilirubin Urine Urobilinogen Ur Leukocyte Esterase Urine WBC (Auto) Urine RBC (Auto) Urine Casts (Auto) U Pathogenic Cast Auto U Epithel Cells (Auto) Urine Bacteria (Auto) U Random Total Protein 748.7 H Urine Creatinine 102.0 Protein/Creatinin Ratio 7.3 Influenza A (Rapid) Influenza B (Rapid) ASSESSMENT/PLAN: 59 y.o. M PMH HTN, DM type 2, hypothyroidism, seizure d/o, asthma presenting for 1 week of SOB, nausea and NBNB emesis x3 episodes, worsening LE edema and diarrhea x 4 days. #Acute hypoxic respiratory failure -saturation improved w/ 2L NC; maintain >90% -duonebs, standing & prn -f/u echo -CXR: congestive changes, bibasilar atelectasis, cardiomegaly -f/u AM CXR #Acute rhabdomyolysis -CK >14,000, hematuria -patient has signs of fluid overload, however need for IVF w/ acute rhabdo -s/p 1L LR in ED -now on 08/18 NS @ 50cc/hr-- continue, monitor for signs of fluid overload -f/u AM CPK #HAYLEY -BUN/Cr 48/3.2-- trend renal labs -f/u renal U/S, urine lytes -protein/cr ratio 7.3 -US: 4+ protein, 3+ blood -Dr. Ly following: continue lasix prn, hold metformin & losartan -avoid nephrotoxic agents #Influenza -Flu A + -isolation droplet precautions -patient symptomatic x 1 week, tamiflu not indicated at this time #Tropinemia -trop 0.33--> 0.37 -f/u AM trop -EKG: NSR, no ST changes, qtc 414 -cardio contacted in ED, no immediate intervention at this time #Transaminitis -AST/ ALT 159/79 -trend lfts -f/u hepatitis panel #Diarrhea -f/u CT A/P -f/u stool studies: lytes, pH, WBC, culture -f/u c. diff #Hypothyroidism -continue synthroid #FEN -1/2 NS 50cc/hr -trend lytes & replete prn -diabetic/ na controlled diet #ppx -heparin sq #dispo telemetry Visit type - Emergency Visit Emergency Visit: Yes ED Registration Date: 10/17/19 Care time: The patient presented to the Emergency Department on the above date and was hospitalized for further evaluation of their emergent condition. - New Patient This patient is new to me today: Yes Date on this admission: 10/18/19 - Critical Care Critical Care patient: No ATTENDING PHYSICIAN STATEMENT I saw and evaluated the patient. I reviewed the resident's note and discussed the case with the resident. I agree with the resident's findings and plan as documented. SUBJECTIVE: OBJECTIVE: ASSESSMENT AND PLAN:
[2019-10-18] MEDS ORDERED: HEPARIN NA (PORCINE) 5,000 UNITS/ML 1ML VIAL ONE (00:43)
[2019-10-18] MEDS: HEPARIN NA (PORCINE) 5,000 UNITS/ML 1ML VIAL SQ SCH ×4 (01:00→21:54)
[2019-10-18] MEDS: INSULIN SLIDING SCALE (NOVOLOG) 1 VIAL SQ SCH ×5 (01:00→22:00)
[2019-10-18 06:40] LABS: BASO % 0.5 % (0-2.0); EOS % 0.5 % (0-4.5); HEMATOCRIT 37.3 % (35.4-49); LYMPH % 20.1 % (8-40); MCH 28.9 pg (25.7-33.7); MCHC 32.2 g/dl (32.0-35.9); MEAN CELL VOLUME 89.9 fl (80-96); MEAN PLT VOLUME 9.5 fl (7.5-11.1); MONO % 7.5 % (3.8-10.2); NEUT % 71.4 % (42.8-82.8); PLATELET COUNT 173 K/MM3 (134-434); RBC 4.15 M/mm3 (4.00-5.60); RDW 14.7 % (11.9-15.9); WHITE BLOOD COUNT 7.8 K/mm3 (4.0-10.0)
[2019-10-18] MEDS ORDERED: INSULIN SLIDING SCALE (NOVOLOG) 1 VIAL SQ ONE (06:45)
[2019-10-18 07:15] LABS: ALK PHOS 71 U/L (45-117); ANION GAP 5 MMOL/L (8-16); BILIRUBIN,TOTAL 0.2 mg/dL (0.2-1); BLOOD UREA NITROGEN 58.1 mg/dL (7-18); CALCIUM 7.7 mg/dL (8.5-10.1); CHLORIDE 106 mmol/L (98-107); CO2 31 mmol/L (21-32); CREATININE 3.6 mg/dL (0.55-1.3); GLUCOSE,RANDOM 134 mg/dL (74-106); POTASSIUM 4.7 mmol/L (3.5-5.1); SGOT/AST 218 U/L (15-37); SGPT/ALT 81 U/L (13-61); SODIUM 142 mmol/L (136-145); TOT PROT 6.4 g/dl (6.4-8.2)
[2019-10-18] MEDS: ALBUTEROL SO4 2.5/IPRATROPIUM 0.5 INH SOL 3 ML VIAL.NEB. NEB SCH ×3 (07:47→21:00)
[2019-10-18] MEDS ORDERED: AMPICILLIN NA/SULBACTAM NA 1.5 GM in SODIUM CHLORIDE 100 ML IVPB SCH (10:00)
--- NOTE | 2019-10-18 10:33 | EKG ---
Test Reason : Blood Pressure : / mmHG Vent. Rate : 075 BPM Atrial Rate : 075 BPM P-R Int : 130 ms QRS Dur : 086 ms QT Int : 380 ms P-R-T Axes : 041 -15 043 degrees QTc Int : 424 ms NORMAL SINUS RHYTHM LOW VOLTAGE QRS BORDERLINE ECG WHEN COMPARED WITH ECG OF 17-OCT-2019 10:29, NO SIGNIFICANT CHANGE WAS FOUND Confirmed by Edgard Valverde MD ([id number]) on 10/18/2019 10:33:04 AM Referred By: Confirmed By:Edgard Valverde MD
[2019-10-18] MEDS ORDERED: AMPICILLIN NA/SULBACTAM NA 1.5 GM VIAL ONE ×2 (10:39→21:24)
[2019-10-18] MEDS ORDERED: SODIUM CHLORIDE 100 ML IVPB ONE ×2 (10:39→21:24)
--- NOTE | 2019-10-18 11:08 | PN ---
Progress Note (short form) - Note Progress Note: Transfer care to Dr Sousa. Consult was changed. Will sign off. Problem List - Problems (1) HAYLEY (acute kidney injury) Code(s): N17.9 - ACUTE KIDNEY FAILURE, UNSPECIFIED (2) CKD (chronic kidney disease) Code(s): N18.9 - CHRONIC KIDNEY DISEASE, UNSPECIFIED
--- NOTE | 2019-10-18 11:16 | HP ---
DATE OF ADMISSION: 10/17/2019 HISTORY: This is a 59-year-old male known to me mentally retarded. Lives at home with home health aide. Also has a 15-year-old mentally retarded. At present, he is hospitalized with flu. He came yesterday to the ER with complaints of short of breath, cough for the last 1 week. In the ER, he was found to be hypoxic so got admitted. According to him, he is taking his medicines at home including insulin. This morning, he is still complaining of short of breath. He is on nasal O2. PHYSICAL EXAMINATION: Vital Signs: BP 130/80, pulse 72, respirations 20, temperature 98. HEENT: Unremarkable. Lungs: Bilateral crepitations heard. Heart: S1, S2 normal. No S3, S4. Abdomen: Soft. Extremities: Legs, no edema. Neurologic: Grossly normal. Chest x-ray: Possible pneumonia right lower lobe. CT of abdomen, chest unremarkable. LABORATORIES: WBC 7.8, hemoglobin 12, hematocrit 37, platelets 173. Chemistry; sodium 142, potassium 4.7, chloride 106, BUN 58, creatinine 3.6, blood sugar 134. Troponin, CPK borderline high. IMPRESSION: 1. Pneumonia, right lower lobe infiltrate. 2. Bronchitis. 3. Respiratory failure. 4. Diabetes. 5. Renal insufficiency. PLAN: Nephrology consult, Dr. Kam. We will start him on IV antibiotics. We will follow. TIEN WAYNE M.D. [id number]
[2019-10-18] MEDS: AMPICILLIN NA/SULBACTAM NA 1.5 GM in SODIUM CHLORIDE 100 ML IVPB SCH ×2 (11:32→21:54)
--- NOTE | 2019-10-18 12:15 | PN ---
Progress Note (short form) - Note Progress Note: Renal follow up for HAYLEY/CKD Seen and examined at the bedside awake and alert upset about IV pump making noise reports some mild chest discomfort on left side no shortness of breath no flank pain, dysuria, frequency or urgency no abd pain, N/V/D no confusion or SEYMOUR Vital Signs Temperature 98.4 F 10/18/19 09:23 Pulse Rate 70 10/18/19 09:23 Respiratory Rate 20 10/18/19 09:23 Blood Pressure 118/77 10/18/19 09:23 O2 Sat by Pulse Oximetry (%) 94 L 10/18/19 04:48 Intake & Output 10/15/19 10/16/19 10/17/19 10/18/19 23:59 23:59 23:59 23:59 Intake Total 250 Output Total 150 Balance 100 Weight 122.47 kg 125.373 kg NAD awake and alert on NC O2 RRR CTA, no rale or wheeze soft NT/ND trace to 1+ LE edema CBC, BMP 10/18/19 06:00 10/18/19 06:00 Current Medications Albuterol/Ipratropium (Duoneb -) 1 amp NEB Q4H PRN PRN Reason: SHORTNESS OF BREATH Albuterol/Ipratropium (Duoneb -) 1 amp NEB RTID [facility] Last Admin: 10/18/19 07:47 Dose: 1 amp Heparin Sodium (Porcine) (Heparin -) 5,000 unit SQ TID [facility] Last Admin: 10/18/19 06:23 Dose: 5,000 unit Sodium Chloride (1/2 Normal Saline) 1,000 mls @ 50 mls/hr IV ASDIR [facility] Stop: 10/18/19 22:00 Last Admin: 10/17/19 16:41 Dose: 50 mls/hr Ampicillin Sodium/Sulbactam (Sodium 1.5 gm/ Sodium Chloride) 100 mls @ 200 mls/ hr IVPB BID [facility] Last Admin: 10/18/19 11:32 Dose: 200 mls/hr Insulin Aspart (Novolog Vial Sliding Scale -) 1 vial SQ ACHS [facility]; Protocol Last Admin: 10/18/19 11:42 Dose: Not Given 59 year old male with history of DM type 2, hypothyrodism, hypertension, CKD who presented with SOB with N/V and found to have HAYLEY and Rhabdomyolysis. 1. HAYLEY on CKD 2. CKD stage 3 3. Hypertension 4. DM type 2 5. Rhabodmyolysis 6. Influenza A 7. Chest pain r/o ACS Renal function stable at this time. No overt acidosis or hyperkalemia. Check FeNa. UPCR is in nephrotic range. Check ONUR, SPEP in AM. Continue NS at 84cc per hour given rhabodmyolysis can give PRN Lasix as needed if pt has shortness of breath Check ECHO Cardiology consult placed Trend CK levels Q24hr Check urine for myologbin started on Tamiflu for influenza Check Hgb A1C Trend renal function and electrolyte daily
[2019-10-18] MEDS: SODIUM CHLORIDE 1,000 ML IV SCH ×2 (13:01→21:55)
[2019-10-18] MEDS ORDERED: PT OWN MED DRAWER 7, Y5N ONE ×2 (13:32→21:25)
[2019-10-18] MEDS: OSELTAMIVIR PHOSPHATE 30 MG CAPSULE PO SCH ×2 (14:28→21:54)
--- NOTE | 2019-10-18 15:58 | ECHO ---
Name: NOLVIA COURTNEY Exam:Adult Echocardiogram Study Date: 10/18/2019 02:25 PM Age: 59 yrs Reason For Study: Fluid overload Height: 64 in Weight: 270 lb BSA: 2.2 m2 MMode/2D Measurements & Calculations IVSd: 1.3 cm Ao root diam: 3.2 cm LVIDd: 4.9 cm LA dimension: 3.6 cm LVIDs: 3.3 cm ACS: 2.2 cm LVPWd: 1.3 cm EDV(Teich): 114.8 ml LVOT diam: 2.1 cm ESV(Teich): 44.0 ml LAV (MOD-bp): 71.0 ml TAPSE: 1.8 cm RV S Stevie: 11.0 cm/sec Doppler Measurements & Calculations MV E max stevie: 77.3 cm/sec Ao V2 max: 129.0 cm/sec MV A max stevie: 88.8 cm/sec Ao max P.7 mmHg MV E/A: 0.87 Ao V2 mean: 87.0 cm/sec MV dec time: 0.17 sec Ao mean P.4 mmHg Ao V2 VTI: 22.7 cm KEVIN(I,D): 3.9 cm2 KEVIN(V,D): 3.1 cm2 LV V1 max P.1 mmHg SV(LVOT): 88.2 ml LV V1 mean P.0 mmHg LV V1 max: 112.4 cm/sec LV V1 mean: 81.4 cm/sec LV V1 VTI: 24.9 cm TR max stevie: 272.8 cm/sec PA V2 max: 80.1 cm/sec TR max P.8 mmHg PA max P.6 mmHg PA acc slope: 619.5 cm/sec2 PA acc time: 0.11 sec PI end-d stevie: 86.9 cm/sec Med Peak E' Stevie: 6.2 cm/sec Med E/e': 12.4 Lat Peak E' Stevie: 7.1 cm/sec Lat E/e': 10.9 PA pr(Accel): 29.9 mmHg Pulm Sys Stevie: 72.3 cm/sec Pulm Rios Stevie: 55.4 cm/sec Pulm S/D: 1.3 Tech Comments TDS. Morbidly obese. Left Ventricle There is mild concentric left ventricular hypertrophy. Left ventricular systolic function is normal. Ejection Fraction = 70%. The transmitral spectral Doppler flow pattern is suggestive of impaired LV relaxation . Right Ventricle The right ventricle is normal in size and function. Atria The left atrium is mildly dilated. Right atrial size is normal. Mitral Valve There is mild mitral valve thickening. There is no mitral regurgitation noted. Tricuspid Valve The tricuspid valve is not well visualized, but is grossly normal. No tricuspid regurgitation. There was insufficient TR detected to calculate RV systolic pressure. Aortic Valve There is mild aortic valve thickening. No hemodynamically significant valvular aortic stenosis. Pulmonic Valve The pulmonic valve is not well visualized. Great Vessels The aortic root is normal size. Pericardium/Pleura There is no pericardial effusion. Interpretation Summary There is mild concentric left ventricular hypertrophy. Left ventricular systolic function is normal. Ejection Fraction = 70%. The right ventricle is normal in size and function. The left atrium is mildly dilated. Right atrial size is normal. There is mild aortic valve thickening. No hemodynamically significant valvular aortic stenosis. There is mild mitral valve thickening. MD Eulalia Maldonado 10/18/2019 03:57 PM
[2019-10-19] MEDS: HEPARIN NA (PORCINE) 5,000 UNITS/ML 1ML VIAL SQ SCH ×3 (05:59→21:54)
[2019-10-19] MEDS: INSULIN SLIDING SCALE (NOVOLOG) 1 VIAL SQ SCH ×4 (06:00→21:54)
[2019-10-19] MEDS: ALBUTEROL SO4 2.5/IPRATROPIUM 0.5 INH SOL 3 ML VIAL.NEB. NEB SCH ×3 (07:51→20:17)
[2019-10-19 08:03] LABS: BASO % 0.4 % (0-2.0); EOS % 1.5 % (0-4.5); HEMATOCRIT 37.2 % (35.4-49); HEMOGLOBIN 11.9 GM/dL (11.7-16.9); LYMPH % 22.4 % (8-40); MCH 29.1 pg (25.7-33.7); MCHC 32.1 g/dl (32.0-35.9); MEAN CELL VOLUME 90.6 fl (80-96); MEAN PLT VOLUME 9.5 fl (7.5-11.1); MONO % 8.6 % (3.8-10.2); NEUT % 67.1 % (42.8-82.8); PLATELET COUNT 181 K/MM3 (134-434); RDW 14.6 % (11.9-15.9); WHITE BLOOD COUNT 5.2 K/mm3 (4.0-10.0)
[2019-10-19 09:14] LABS: ALK PHOS 69 U/L (45-117); ANION GAP 8 MMOL/L (8-16); BILIRUBIN,TOTAL 0.3 mg/dL (0.2-1); BLOOD UREA NITROGEN 62.9 mg/dL (7-18); CALCIUM 7.7 mg/dL (8.5-10.1); CHLORIDE 104 mmol/L (98-107); CO2 28 mmol/L (21-32); CREATININE 3.8 mg/dL (0.55-1.3); GLUCOSE,RANDOM 136 mg/dL (74-106); MAGNESIUM 2.4 mg/dL (1.8-2.4); PHOSPHOROUS 5.4 mg/dL (2.5-4.9); POTASSIUM 4.5 mmol/L (3.5-5.1); SGOT/AST 213 U/L (15-37); SGPT/ALT 78 U/L (13-61); SODIUM 140 mmol/L (136-145); TOT PROT 6.5 g/dl (6.4-8.2)
[2019-10-19] MEDS ORDERED: PT OWN MED DRAWER 7, Y5N ONE ×3 (09:22→21:44)
[2019-10-19] MEDS ORDERED: SODIUM CHLORIDE 100 ML IVPB ONE ×2 (09:22→21:44)
[2019-10-19] MEDS ORDERED: AMPICILLIN NA/SULBACTAM NA 1.5 GM VIAL ONE ×2 (09:22→21:44)
--- NOTE | 2019-10-19 09:39 | PN ---
Progress Note, Physician Chief Complaint: Feels better History of Present Illness: Case discussed with Dr Schaeffer ,advised IV hydration for rabdo - Current Medication List Current Medications: Active Medications Albuterol/Ipratropium (Duoneb -) 1 amp NEB Q4H PRN PRN Reason: SHORTNESS OF BREATH Albuterol/Ipratropium (Duoneb -) 1 amp NEB RTID [facility] Last Admin: 10/18/19 21:00 Dose: 1 amp Heparin Sodium (Porcine) (Heparin -) 5,000 unit SQ TID [facility] Last Admin: 10/19/19 05:59 Dose: 5,000 unit Ampicillin Sodium/Sulbactam (Sodium 1.5 gm/ Sodium Chloride) 100 mls @ 200 mls/ hr IVPB BID [facility] Last Admin: 10/18/19 21:54 Dose: 200 mls/hr Sodium Chloride (Normal Saline -) 1,000 mls @ 83 mls/hr IV ASDIR [facility] Last Admin: 10/18/19 21:55 Dose: 83 mls/hr Insulin Aspart (Novolog Vial Sliding Scale -) 1 vial SQ ACHS [facility]; Protocol Last Admin: 10/19/19 06:00 Dose: 4 units Oseltamivir Phosphate (Tamiflu -) 30 mg PO BID [facility] Stop: 10/23/19 12:14 Last Admin: 10/18/19 21:54 Dose: 30 mg - Objective Vital Signs: Vital Signs Temperature 97.8 F 10/19/19 06:00 Pulse Rate 79 10/19/19 06:00 Respiratory Rate 18 10/19/19 06:00 Blood Pressure 104/65 10/19/19 06:00 O2 Sat by Pulse Oximetry (%) 95 10/18/19 21:00 Constitutional: Yes: No Distress Eyes: Yes: WNL HENT: Yes: WNL Neck: Yes: WNL Cardiovascular: Yes: WNL Respiratory: Yes: WNL Gastrointestinal: Yes: WNL ...Rectal Exam: Yes: Deferred Edema: No Wound/Incision: Yes: Excoriated Labs: CBC, BMP 10/19/19 07:20 10/19/19 07:20 INR, PTT INR 1.01 (0.83-1.09) 10/17/19 12:11 Assessment/Plan Continue same trt
[2019-10-19] MEDS: AMPICILLIN NA/SULBACTAM NA 1.5 GM in SODIUM CHLORIDE 100 ML IVPB SCH ×2 (09:46→21:53)
[2019-10-19] MEDS: OSELTAMIVIR PHOSPHATE 30 MG CAPSULE PO SCH ×2 (09:47→21:54)
--- NOTE | 2019-10-19 12:31 | PN ---
Progress Note (short form) - Note Progress Note: Renal follow up for HAYLEY/CKD Seen and examined at the bedside awake and alert denies any chest pain or shortness of breath making urine on IVF no flank pain, dysuria, frequency or urgency no abd pain, N/V/D no confusion or [place] Vital Signs Temperature 98.4 F 10/19/19 09:44 Pulse Rate 76 10/19/19 09:44 Respiratory Rate 18 10/19/19 09:44 Blood Pressure 130/56 L 10/19/19 09:44 O2 Sat by Pulse Oximetry (%) 95 10/18/19 21:00 Intake & Output 10/16/19 10/17/19 10/18/19 10/19/19 23:59 23:59 23:59 23:59 Intake Total 850 Output Total 150 350 Balance 700 -350 Weight 122.47 kg 125.373 kg NAD awake and alert on NC O2 RRR CTA, no rale or wheeze soft NT/ND trace to 1+ LE edema CBC, BMP 10/19/19 07:20 10/19/19 07:20 Current Medications Albuterol/Ipratropium (Duoneb -) 1 amp NEB Q4H PRN PRN Reason: SHORTNESS OF BREATH Albuterol/Ipratropium (Duoneb -) 1 amp NEB RTID [facility] Last Admin: 10/19/19 07:51 Dose: 1 amp Heparin Sodium (Porcine) (Heparin -) 5,000 unit SQ TID [facility] Last Admin: 10/19/19 05:59 Dose: 5,000 unit Ampicillin Sodium/Sulbactam (Sodium 1.5 gm/ Sodium Chloride) 100 mls @ 200 mls/ hr IVPB BID [facility] Last Admin: 10/19/19 09:46 Dose: 200 mls/hr Sodium Chloride (Normal Saline -) 1,000 mls @ 100 mls/hr IV ASDIR [facility] Insulin Aspart (Novolog Vial Sliding Scale -) 1 vial SQ ACHS [facility]; Protocol Last Admin: 10/19/19 11:50 Dose: 4 units Oseltamivir Phosphate (Tamiflu -) 30 mg PO BID [facility] Stop: 10/23/19 12:14 Last Admin: 10/19/19 09:47 Dose: 30 mg 59 year old male with history of DM type 2, hypothyrodism, hypertension, CKD who presented with SOB with N/V and found to have HAYLEY and Rhabdomyolysis. 1. HAYLEY on CKD 2. CKD stage 3 3. Hypertension 4. DM type 2 5. Rhabodmyolysis 6. Influenza A 7. Chest pain r/o ACS CK levels remain >92937 Will increase rate of IVF as Cr also trending up No clinical signs of HF at this time ECHO showed preserved LVEF F/u ONUR, SPEP can give PRN Lasix as needed if pt has shortness of breath Cardiology consult placed Trend CK levels Q24hr Check urine for myologbin. UA showed 4+ blood and < 50 RBC consistent with heme pigment Continue on Tamiflu for influenza Check Hgb A1C Trend renal function and electrolyte daily Deny Sousa DO
--- NOTE | 2019-10-19 12:53 | CONS ---
DATE OF CONSULTATION: DATE OF DICTATION: 10/19/2019 CHIEF COMPLAINT: 1. Shortness of breath. 2. Cough, expectoration, nausea, vomiting. 3. Recurring diarrhea. HISTORY OF PRESENT ILLNESS: Patient is a 59-year-old -[place] gentleman known case of hypertension, hypertensive cardiovascular disease, iatrogenic hypothyroidism, status post total thyroidectomy for carcinoma, non-insulin dependent diabetes mellitus, history of bronchial asthma as recorded in the chart, seizure disorder, was admitted with recurring cough with clear expectoration, chills, generalized weakness, recurrent nausea and vomiting and diarrhea. No history of melena or hematemesis. Patient stated the symptoms started a week before he was admitted and have been persistent. During hospitalization he was diagnosed to have influenza A and also had marked elevation of CK and elevated BNP. Patient denies any chest pain or discomfort. Complais of myalgias. H/o exerional dyspnea proir to admission No history of paroxysmal nocturnal dyspnea or orthopnea reported. No history of heart murmur or rheumatic fever. PAST MEDICAL HISTORY: Past history as mentioned in the history of present illness. SURGICAL HISTORY: Status post total thyroidectomy. SOCIAL HISTORY: , has a son, no history of alcohol abuse. He used to be a smoker, stopped several years ago. FAMILY HISTORY: Father is not known. Mother at the age of 75, apparently had hypertension, diabetes, et cetera. Cause of was not known. He had 3 sisters and 3 brothers. Patient is not familiar with their medical history. ALLERGIES: None reported. MEDICATIONS: Current medications are as follows. 1. Ampicillin sodium sulbactam 1.5 g IV b.i.d. 2. Heparin 5000 units subcutaneous t.i.d. 3. DuoNeb 1 ampule via nebulizer every 4 hours p.r.n. 4. DuoNeb 1 ampule via nebulizer t.i.d. 5. Normal saline 1000 mL at 83 mL per hour. 6. Novolog via sliding scale. 7. Tamiflu 30 mg p.o. b.i.d. REVIEW OF SYSTEMS: Constitutional: History of chills, denies having fever or night sweats. No history of unintentional weight loss. HEENT: Denies have headaches, diplopia, blurred vision, no history of epistaxis, hoarseness, tinnitus or deafness reported. Cardiovascular: No history of chest pain or discomfort. See history of present illness. Respiratory: See history of present illness. No history of tuberculosis. Gastrointestinal: Recurrent nausea, vomiting and diarrhea. Denies having abdominal pain. No history of melena or hematemesis. Musculoskeletal: History of myalgias. Endocrine: See history of present illness. Neurological: See history of present illness, no history of recent seizures, presyncope or syncope. No history of dizziness, no history of focal weakness. Genitourinary: He denies any dysuria, frequency or hematuria. Hematological/lymphatics: No history of known anemia, ecchymosis or bleeding. PHYSICAL EXAMINATION: General: A 59-year-old morbidly obese gentleman was complaining of repeated diarrhea. There is no pallor, cyanosis, clubbing or jaundice noted. Vital signs: Weight 125.373 kg. Height was 5 feet 4 inches. BMI was 47. Blood pressure 130/56 mmHg. Pulse 76 beats per minute and regular. Temperature 98.4 degrees Fahrenheit. Respirations were 18 per minute. O2 saturation on October 18, 2019 was 95% on 3 L of oxygen. Neck: Short, supple, no jugular venous distention, carotids were 2+, upstrokes were normal, no bruits were appreciated. There was a well-healed anterior surgical scar. Heart: PMI was not localized, no heaves or thrills. Heart sounds were distant, no murmur or gallops were appreciated. Lungs: Scattered crepitations, clear on coughing. No expiratory wheezing or extraneous sounds were heard. Abdomen: Markedly obese, no tenderness was elicited. Unable to appreciate hepatosplenomegaly or palpable masses. Extremities: 2+ pedal edema, no calf tenderness was elicited. 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 Dorsalis pedis and posterior tibial pulses could not be palpated. LABORATORY DATA: CBC October 19, 2019: WBC 5200. Hemoglobin 11.9 g/dL. Hematocrit 37.2%. Normal cell indices. Platelet count 181,000. Differential: Neutrophils 67.1%,lymphocytes 22.4%, monocytes 8.6%, eosinophils 1.5%, basophil 0.4%. INR was 1.01 on October 17, 2019. Chemistry October 19, 2019: Sodium 140, potassium 4.5, chloride 104, CO2 28 mmol/L. BUN was 62.9; creatinine was 3.8 mg/dL. Random glucose 136 mg/dL. Calcium was low at 7.7 mg/dL. AST was 213 IU/L. ALT was elevated at 78 units/L. Alkaline phosphatase was 68. CK on October 17 and October 18 over 14,000. Troponin on admission were elevated at 0.34. Total protein was 6.4. Albumin was low at 2.0 g/L. Troponins have been persistently elevated since admission. In the ER physician's documentation: BNP was 4162.6. X-ray chest on October 17, 2019: Portable single view of the chest is being submitted. Since July 28, 2019 there is an enlarged heart with left neck clips. There is an unfolded aorta. There are prominent hilar markings with some congestive changes and some bibasilar atelectatic findings. The soft tissues are intact. The angles are sharp. Significant arthritic changes are not seen. Correlation recommended. ECG October 17, 2019: Normal sinus rhythm. Normal ECG when compared to ECG of August 01. Nonspecific T wave abnormalities no longer evident in the anterior leads. Repeat ECG on October 18, 2019 reported as normal sinus rhythm, low voltage QRS, borderline ECG when compared to ECG of September - October 2019. No significant change was found. Echocardiogram dated October 18, 2019: Interpretation summary: There is marked concentric left ventricular hypertrophy. The left ventricular systolic function is normal. Ejection fraction is 70%. The right ventricle is normal in size and function. The left atrium is mildly dilated. The right atrium is normal. There is mild aortic valve thickening. No hemodynamically significant aortic stenosis. There is mild mitral valve thickening. IMPRESSION: 1. Influenza A. 2. Shortness of breath etiology: A. Secondary to influenza A. B. Left ventricular failure (left ventricular diastolic dysfunction). 3. Recurring diarrhea and vomiting secondary to influenza A. 4. Rhabdomyolysis etiology: A. Secondary to influenza. B. Related to medications. 5. Elevated troponin etiology: A. Acute myocarditis. B. Chronic kidney disease. C. Related to infection. 6. Elevated BNP: A. Secondary to congestive heart failure. B. Infection. C. Related to chronic kidney disease. 7. Hypertension, hypertensive cardiovascular disease. 8. Diabetes mellitus. 9. Iatrogenic hypothyroidism. 10. Acute on chronic kidney disease. 11. Morbid obesity. 12. Recurring vomiting and diarrhea most likely related to influenza A. 13. Abnormal liver function test most likely related to influenza A. RECOMMENDATIONS: 1. Obtain all medications from home for reconciliation. 2. Resume levothyroxine as soon as possible. 3. Follow up CK and BNP. 4. Daily weights. 5. Follow up x-ray chest. Thank you for your referral. Yours sincerely, MARA ROSALES M.D. [id number]
[2019-10-19] MEDS: SODIUM CHLORIDE 1,000 ML IV SCH ×2 (14:25→21:54)
[2019-10-20] MEDS: HEPARIN NA (PORCINE) 5,000 UNITS/ML 1ML VIAL SQ SCH ×3 (07:29→22:40)
[2019-10-20] MEDS: INSULIN SLIDING SCALE (NOVOLOG) 1 VIAL SQ SCH ×4 (07:29→22:42)
[2019-10-20 07:34] LABS: BASO % 0.3 % (0-2.0); EOS % 2.2 % (0-4.5); HEMATOCRIT 35.8 % (35.4-49); HEMOGLOBIN 11.5 GM/dL (11.7-16.9); LYMPH % 27.6 % (8-40); MCHC 32.1 g/dl (32.0-35.9); MEAN CELL VOLUME 90.4 fl (80-96); MEAN PLT VOLUME 9.6 fl (7.5-11.1); MONO % 11.7 % (3.8-10.2); NEUT % 58.2 % (42.8-82.8); PLATELET COUNT 170 K/MM3 (134-434); RBC 3.96 M/mm3 (4.00-5.60); RDW 14.2 % (11.9-15.9); WHITE BLOOD COUNT 5.6 K/mm3 (4.0-10.0)
[2019-10-20 07:58] LABS: BILIRUBIN,TOTAL 0.2 mg/dL (0.2-1); BLOOD UREA NITROGEN 65.6 mg/dL (7-18); CALCIUM 7.1 mg/dL (8.5-10.1); MAGNESIUM 2.1 mg/dL (1.8-2.4); POTASSIUM 4.8 mmol/L (3.5-5.1); TOT PROT 6.4 g/dl (6.4-8.2)
[2019-10-20] MEDS: ALBUTEROL SO4 2.5/IPRATROPIUM 0.5 INH SOL 3 ML VIAL.NEB. NEB SCH ×3 (08:27→20:55)
[2019-10-20] MEDS ORDERED: PT OWN MED DRAWER 7, Y5N ONE ×2 (09:12→22:29)
[2019-10-20] MEDS ORDERED: SODIUM CHLORIDE 100 ML IVPB ONE ×2 (09:12→22:30)
[2019-10-20] MEDS ORDERED: AMPICILLIN NA/SULBACTAM NA 1.5 GM VIAL ONE ×2 (09:12→22:29)
[2019-10-20] MEDS: OSELTAMIVIR PHOSPHATE 30 MG CAPSULE PO SCH ×2 (09:25→22:43)
[2019-10-20] MEDS: AMPICILLIN NA/SULBACTAM NA 1.5 GM in SODIUM CHLORIDE 100 ML IVPB SCH ×2 (09:25→22:44)
[2019-10-20] MEDS: SODIUM CHLORIDE 1,000 ML IV SCH ×2 (09:25→15:03)
--- NOTE | 2019-10-20 09:26 | PN ---
Progress Note, Physician Chief Complaint: Feels better History of Present Illness: Dr Wolfe cardiology consult appreciated - Current Medication List Current Medications: Active Medications Albuterol/Ipratropium (Duoneb -) 1 amp NEB Q4H PRN PRN Reason: SHORTNESS OF BREATH Albuterol/Ipratropium (Duoneb -) 1 amp NEB RTID [facility] Last Admin: 10/20/19 08:27 Dose: 1 amp Documented by: Heparin Sodium (Porcine) (Heparin -) 5,000 unit SQ TID [facility] Last Admin: 10/20/19 07:29 Dose: 5,000 unit Documented by: Ampicillin Sodium/Sulbactam (Sodium 1.5 gm/ Sodium Chloride) 100 mls @ 200 mls/hr IVPB BID [facility] Last Admin: 10/19/19 21:53 Dose: 200 mls/hr Documented by: Sodium Chloride (Normal Saline -) 1,000 mls @ 100 mls/hr IV ASDIR [facility] Last Admin: 10/19/19 21:54 Dose: 100 mls/hr Documented by: Insulin Aspart (Novolog Vial Sliding Scale -) 1 vial SQ ACHS [facility]; Protocol Last Admin: 10/20/19 07:29 Dose: 4 units Documented by: Oseltamivir Phosphate (Tamiflu -) 30 mg PO BID [facility] Stop: 10/23/19 12:14 Last Admin: 10/19/19 21:54 Dose: 30 mg Documented by: - Objective Vital Signs: Vital Signs Temperature 98.8 F 10/20/19 06:00 Pulse Rate 78 10/20/19 06:00 Respiratory Rate 18 10/20/19 06:00 Blood Pressure 156/92 10/20/19 06:00 O2 Sat by Pulse Oximetry (%) 95 10/19/19 21:00 Constitutional: Yes: Anxious Eyes: Yes: WNL HENT: Yes: WNL Neck: Yes: WNL Cardiovascular: Yes: WNL Respiratory: Yes: On Nasal O2, Poor Air Entry ...Rectal Exam: Yes: Deferred Genitourinary: Yes: WNL Edema: No Peripheral Pulses WNL: Yes Labs: CBC, BMP 10/20/19 06:10 10/20/19 06:10 INR, PTT INR 1.01 (0.83-1.09) 10/17/19 12:11 Assessment/Plan BUN/Cr high 66/4 Continue same trt
--- NOTE | 2019-10-20 14:28 | PN ---
Progress Note (short form) - Note Progress Note: Renal follow up for HAYLEY/CKD Seen and examined at the bedside awake and alert denies any sob, chest pain making urine, more so then before denies any fever or chills no flank pain Vital Signs Temperature 98.3 F 10/20/19 14:06 Pulse Rate 76 10/20/19 14:06 Respiratory Rate 18 10/20/19 14:06 Blood Pressure 146/80 10/20/19 14:06 O2 Sat by Pulse Oximetry (%) 94 L 10/20/19 11:28 Intake & Output 10/17/19 10/18/19 10/19/19 10/20/19 23:59 23:59 23:59 23:59 Intake Total 850 950 Output Total 150 650 400 Balance 700 300 -400 Weight 122.47 kg 125.373 kg NAD awake and alert on NC O2 RRR CTA, no rale or wheeze soft NT/ND trace to 1+ LE edema CBC, BMP 10/20/19 06:10 10/20/19 06:10 Current Medications Albuterol/Ipratropium (Duoneb -) 1 amp NEB Q4H PRN PRN Reason: SHORTNESS OF BREATH Albuterol/Ipratropium (Duoneb -) 1 amp NEB RTID [facility] Last Admin: 10/20/19 08:27 Dose: 1 amp Documented by: Heparin Sodium (Porcine) (Heparin -) 5,000 unit SQ TID [facility] Last Admin: 10/20/19 07:29 Dose: 5,000 unit Documented by: Ampicillin Sodium/Sulbactam (Sodium 1.5 gm/ Sodium Chloride) 100 mls @ 200 mls/hr IVPB BID [facility] Last Admin: 10/20/19 09:25 Dose: 200 mls/hr Documented by: Sodium Chloride (Normal Saline -) 1,000 mls @ 100 mls/hr IV ASDIR [facility] Last Admin: 10/20/19 09:25 Dose: 100 mls/hr Documented by: Insulin Aspart (Novolog Vial Sliding Scale -) 1 vial SQ ACHS [facility]; Protocol Last Admin: 10/20/19 12:19 Dose: 4 units Documented by: Levothyroxine Sodium (Synthroid -) 75 mcg PO DAILY@0700 [facility] Oseltamivir Phosphate (Tamiflu -) 30 mg PO BID [facility] Stop: 03/08/20 12:14 Last Admin: 10/20/19 09:25 Dose: 30 mg Documented by: 59 year old male with history of DM type 2, hypothyrodism, hypertension, CKD who presented with SOB with N/V and found to have HAYLEY and Rhabdomyolysis. 1. HAYLEY on CKD 2. CKD stage 3 3. Hypertension 4. DM type 2 5. Rhabodmyolysis 6. Influenza A 7. Chest pain r/o ACS CK levels remain >89674 Continue isotonic saline Has some LE swelling but lung clear on examination ECHO showed preserved LVEF Cardiology consult appreciated F/u ONUR, SPEP can give PRN Lasix as needed if pt has shortness of breath Cardiology consult placed Trend CK levels Q24hr Check urine for myologbin. UA showed 4+ blood and < 50 RBC consistent with heme pigment Continue on Tamiflu for influenza Check Hgb A1C Trend renal function and electrolyte daily Deny Sousa DO
[2019-10-20 14:43] VITALS: BMI 47.3
[2019-10-20] MEDS: CALCIUM ACETATE 667 MG CAPSULE (FP) PO SCH (17:51)
[2019-10-21] MEDS: SODIUM CHLORIDE 1,000 ML IV SCH ×2 (05:21→09:59)
[2019-10-21] MEDS: LEVOTHYROXINE NA 75 MCG TABLET (FP) PO SCH (06:38)
[2019-10-21] MEDS: HEPARIN NA (PORCINE) 5,000 UNITS/ML 1ML VIAL SQ SCH ×3 (06:38→21:24)
[2019-10-21] MEDS: INSULIN SLIDING SCALE (NOVOLOG) 1 VIAL SQ SCH ×4 (06:38→21:25)
[2019-10-21 06:47] LABS: BASO % 0.5 % (0-2.0); EOS % 2.5 % (0-4.5); HEMATOCRIT 34.8 % (35.4-49); HEMOGLOBIN 11.4 GM/dL (11.7-16.9); LYMPH % 26.1 % (8-40); MCH 29.3 pg (25.7-33.7); MCHC 32.8 g/dl (32.0-35.9); MEAN CELL VOLUME 89.3 fl (80-96); MONO % 12.7 % (3.8-10.2); NEUT % 58.2 % (42.8-82.8); PLATELET COUNT 167 K/MM3 (134-434); RBC 3.89 M/mm3 (4.00-5.60); RDW 14.5 % (11.9-15.9); WHITE BLOOD COUNT 6.3 K/mm3 (4.0-10.0)
[2019-10-21] MEDS: ALBUTEROL SO4 2.5/IPRATROPIUM 0.5 INH SOL 3 ML VIAL.NEB. NEB SCH ×3 (07:20→21:20)
[2019-10-21 07:28] LABS: BILIRUBIN,TOTAL 0.3 mg/dL (0.2-1); BLOOD UREA NITROGEN 69.4 mg/dL (7-18); CALCIUM 7.2 mg/dL (8.5-10.1); MAGNESIUM 2.4 mg/dL (1.8-2.4); PHOSPHOROUS 3.6 mg/dL (2.5-4.9); POTASSIUM 4.6 mmol/L (3.5-5.1); TOT PROT 6.5 g/dl (6.4-8.2)
[2019-10-21] MEDS: CALCIUM ACETATE 667 MG CAPSULE (FP) PO SCH ×3 (08:50→17:04)
[2019-10-21] MEDS ORDERED: PT OWN MED DRAWER 7, Y5N ONE ×2 (09:12→21:06)
[2019-10-21] MEDS ORDERED: SODIUM CHLORIDE 100 ML IVPB ONE ×2 (09:13→21:06)
[2019-10-21] MEDS ORDERED: AMPICILLIN NA/SULBACTAM NA 1.5 GM VIAL ONE ×2 (09:13→21:06)
--- NOTE | 2019-10-21 09:26 | PN ---
Progress Note, Physician Chief Complaint: Feels OK History of Present Illness: BUN /Cr 69/4 hydration in progress - Current Medication List Current Medications: Active Medications Albuterol/Ipratropium (Duoneb -) 1 amp NEB Q4H PRN PRN Reason: SHORTNESS OF BREATH Albuterol/Ipratropium (Duoneb -) 1 amp NEB RTID [facility] Last Admin: 10/21/19 07:20 Dose: 1 amp Documented by: Calcium Acetate (Phoslo -) 667 mg PO TIDCM [facility] Last Admin: 10/21/19 08:50 Dose: 667 mg Documented by: Heparin Sodium (Porcine) (Heparin -) 5,000 unit SQ TID [facility] Last Admin: 10/21/19 06:38 Dose: 5,000 unit Documented by: Ampicillin Sodium/Sulbactam (Sodium 1.5 gm/ Sodium Chloride) 100 mls @ 200 mls/hr IVPB BID [facility] Last Admin: 10/20/19 22:44 Dose: 200 mls/hr Documented by: Sodium Chloride (Normal Saline -) 1,000 mls @ 100 mls/hr IV ASDIR [facility] Last Admin: 10/21/19 05:21 Dose: 100 mls/hr Documented by: Insulin Aspart (Novolog Vial Sliding Scale -) 1 vial SQ ACHS [facility]; Protocol Last Admin: 10/21/19 06:38 Dose: 4 units Documented by: Levothyroxine Sodium (Synthroid -) 75 mcg PO DAILY@0700 [facility] Last Admin: 10/21/19 06:38 Dose: 75 mcg Documented by: Oseltamivir Phosphate (Tamiflu -) 30 mg PO BID [facility] Stop: 10/23/19 12:14 Last Admin: 10/20/19 22:43 Dose: 30 mg Documented by: - Objective Vital Signs: Vital Signs Temperature 97.5 F L 10/21/19 05:35 Pulse Rate 78 10/21/19 05:35 Respiratory Rate 20 10/21/19 05:35 Blood Pressure 167/76 10/21/19 05:35 O2 Sat by Pulse Oximetry (%) 93 L 10/20/19 21:00 Constitutional: Yes: No Distress Eyes: Yes: WNL HENT: Yes: WNL Neck: Yes: WNL Cardiovascular: Yes: WNL Respiratory: Yes: WNL, On Nasal O2 Gastrointestinal: Yes: Normal Bowel Sounds ...Rectal Exam: Yes: WNL Genitourinary: Yes: WNL Musculoskeletal: Yes: WNL Extremities: Yes: WNL Edema: No Neurological: Yes: Alert Labs: CBC, BMP 10/21/19 06:25 10/21/19 06:25 INR, PTT INR 1.01 (0.83-1.09) 10/17/19 12:11 Assessment/Plan Discussed with his sister Mena
[2019-10-21] MEDS: MULTIVITAMINS (DAILY MVI) TABLET (FP) PO SCH (09:58)
[2019-10-21] MEDS: OSELTAMIVIR PHOSPHATE 30 MG CAPSULE PO SCH ×2 (09:59→21:25)
[2019-10-21] MEDS: AMPICILLIN NA/SULBACTAM NA 1.5 GM in SODIUM CHLORIDE 100 ML IVPB SCH ×2 (09:59→21:24)
[2019-10-21] MEDS: amLODIPine BESYLATE 5 MG TABLET (FP) PO SCH (11:19)
--- NOTE | 2019-10-21 12:46 | PN ---
Progress Note (short form) - Note Progress Note: Renal follow up for HAYLEY/CKD Seen and examined at the bedside awake and alert denies any sob, chest pain has leg tightness making urine denies any fever or chills no flank pain Vital Signs Temperature 97.6 F 10/21/19 09:40 Pulse Rate 78 10/21/19 09:40 Respiratory Rate 19 10/21/19 09:40 Blood Pressure 159/87 10/21/19 09:40 O2 Sat by Pulse Oximetry (%) 96 10/21/19 09:00 Intake & Output 10/18/19 10/19/19 10/20/19 10/21/19 23:59 23:59 23:59 23:59 Intake Total 161 765 5747 940 Output Total 150 301 202 5324 Balance 700 300 800 -60 Weight 125.373 kg 125.191 kg NAD awake and alert on NC O2 RRR CTA, no rale or wheeze soft NT/ND trace to 1+ LE edema CBC, BMP 10/21/19 06:25 10/21/19 06:25 Current Medications Albuterol/Ipratropium (Duoneb -) 1 amp NEB Q4H PRN PRN Reason: SHORTNESS OF BREATH Albuterol/Ipratropium (Duoneb -) 1 amp NEB RTID [facility] Last Admin: 10/21/19 07:20 Dose: 1 amp Documented by: Amlodipine Besylate (Norvasc -) 5 mg PO DAILY [facility] Last Admin: 10/21/19 11:19 Dose: 5 mg Documented by: Calcium Acetate (Phoslo -) 667 mg PO TIDCM [facility] Last Admin: 10/21/19 11:46 Dose: 667 mg Documented by: Heparin Sodium (Porcine) (Heparin -) 5,000 unit SQ TID [facility] Last Admin: 10/21/19 06:38 Dose: 5,000 unit Documented by: Ampicillin Sodium/Sulbactam (Sodium 1.5 gm/ Sodium Chloride) 100 mls @ 200 mls/hr IVPB BID [facility] Last Admin: 10/21/19 09:59 Dose: 200 mls/hr Documented by: Sodium Chloride (Normal Saline -) 1,000 mls @ 83 mls/hr IV ASDIR [facility] Last Admin: 10/21/19 09:59 Dose: Not Given Documented by: Insulin Aspart (Novolog Vial Sliding Scale -) 1 vial SQ ACHS [facility]; Protocol Last Admin: 10/21/19 11:46 Dose: 4 units Documented by: Levothyroxine Sodium (Synthroid -) 75 mcg PO DAILY@0700 [facility] Last Admin: 10/21/19 06:38 Dose: 75 mcg Documented by: Multivitamins/Minerals/Vitamin C (Tab-A-Vit -) 1 tab PO DAILY [facility] Last Admin: 10/21/19 09:58 Dose: 1 tab Documented by: Oseltamivir Phosphate (Tamiflu -) 30 mg PO BID [facility] Stop: 10/23/19 12:14 Last Admin: 10/21/19 09:59 Dose: 30 mg Documented by: 59 year old male with history of DM type 2, hypothyrodism, hypertension, CKD who presented with SOB with N/V and found to have HAYLEY and Rhabdomyolysis. 1. HAYLEY on CKD 2. CKD stage 3 3. Hypertension 4. DM type 2 5. Rhabodmyolysis 6. Influenza A 7. Chest pain r/o ACS CK levels now improved to 9000 will need to continue IV fluid untril CK at least less then 5000 Continue saline at present rate will give Lasix 40mg IV x 1 to mange LE edema seng clear on examination ECHO showed preserved LVEF Cardiology consult appreciated F/u ONUR, SPEP Trend CK levels Q24hr UA showed 4+ blood and < 50 RBC consistent with heme pigment Continue on Tamiflu for influenza for 5 days duration Check Hgb A1C Trend renal function and electrolyte daily Deny Sousa DO
[2019-10-21] MEDS ORDERED: FUROSEMIDE 40 MG/4 ML INJECTABLE VIAL IVPUSH ONE ×2 (12:47→18:30)
--- NOTE | 2019-10-21 13:01 | CONS ---
DATE OF CONSULTATION: 10/21/2019 HISTORY OF PRESENT ILLNESS: Mr. Roberto is a 59-year-old gentleman who was admitted with history of shortness of breath, cough, expectoration, nausea, vomiting associated with diarrhea who was diagnosed to have influenza A. He also was found to have acute kidney injury. Since his admission he says that he has been feeling better. There is less dyspnea and remains afebrile. Denies having any further myalgias. On admission patient was noted to have marked elevation of CK. Currently he denies having any chest pain or discomfort and no history of dyspnea at rest or with exertion, no history of paroxysmal nocturnal dyspnea or orthopnea. PHYSICAL EXAMINATION: Vital Signs: Blood pressure 159/87 mmHg. Pulse 78 beats per minute and regular. Temperature 97.6 degrees Fahrenheit. Respirations were 19 per minute. Weight was not recorded. Neck: Supple, no jugular venous distention. Carotids were 1 to 2+. Upstrokes were normal, no bruits were heard and no thyromegaly was present. Heart: No heaves or thrills. PMI was not localized, heart sounds were distant, no murmur or gallops were appreciated. Lungs: Clear. Abdomen: Markedly obese, soft and nontender. No organomegaly was appreciated. Extremities: Bilateral lower extremity pitting edema 2+. No calf tenderness was elicited. LABORATORY DATA: October 21, 2019, CBC: WBC count 6300. Hemoglobin 11.4 g/dL. Hematocrit 34.8%. Platelet count 167,000. Differential: Neutrophil 58.2%, lymphocyte 26.1%, monocyte 12.7%, eosinophil 2.5%, basophil 0.5%. Chemistry: Sodium 138, potassium 4.6, chloride 105, CO2 of 27 mMol/L. BUN 69.4, creatinine 0.4 mg/dL. Random glucose 162. Magnesium 2.4 mg/dL. Total bilirubin 0.3. AST 135, ALT 65, alkaline phosphatase 68 units/L. CK 9000. IMPRESSION: 1. Influenza A. 2. Dyspnea. a. Etiology is secondary to number 1. b. Volume overload. c. Left diastolic heart failure. 3. Hypothyroidism. 4. Acute kidney injury over chronic kidney disease. 5. Moderate obesity. 6. Rhabdomyolysis. RECOMMENDATIONS: 1. Daily weights. 2. Continue current medications. 3. Hydration is in progress. 4. Followup x-ray chest. 5. Followup ECG. PROGNOSIS: Guarded. Obdulio [id number]
[2019-10-21] MEDS ORDERED: amLODIPine BESYLATE 5 MG TABLET (FP) PO ONE (18:30)
[2019-10-22] MEDS: INSULIN SLIDING SCALE (NOVOLOG) 1 VIAL SQ SCH ×4 (06:44→22:56)
[2019-10-22] MEDS: LEVOTHYROXINE NA 75 MCG TABLET (FP) PO SCH (06:45)
[2019-10-22] MEDS: HEPARIN NA (PORCINE) 5,000 UNITS/ML 1ML VIAL SQ SCH ×3 (06:45→22:55)
[2019-10-22 07:31] LABS: BLOOD UREA NITROGEN 71.6 mg/dL (7-18); CALCIUM 7.3 mg/dL (8.5-10.1); PHOSPHOROUS 3.8 mg/dL (2.5-4.9); POTASSIUM 4.8 mmol/L (3.5-5.1)
[2019-10-22] MEDS: ALBUTEROL SO4 2.5/IPRATROPIUM 0.5 INH SOL 3 ML VIAL.NEB. NEB SCH ×3 (07:55→19:40)
[2019-10-22] MEDS: CALCIUM ACETATE 667 MG CAPSULE (FP) PO SCH ×3 (08:36→17:16)
--- NOTE | 2019-10-22 09:59 | PN ---
Progress Note, Physician Chief Complaint: Feels bloated and congested History of Present Illness: 59 year old male with history of DM type 2, hypothyrodism, hypertension, CKD who presented with SOB with N/V and found to have HAYLEY and Rhabdomyolysis. - Current Medication List Current Medications: Active Medications Albuterol/Ipratropium (Duoneb -) 1 amp NEB Q4H PRN PRN Reason: SHORTNESS OF BREATH Albuterol/Ipratropium (Duoneb -) 1 amp NEB RTID [facility] Last Admin: 10/21/19 21:20 Dose: 1 amp Documented by: Amlodipine Besylate (Norvasc -) 5 mg PO DAILY [facility] Last Admin: 10/21/19 11:19 Dose: 5 mg Documented by: Calcium Acetate (Phoslo -) 667 mg PO TIDCM [facility] Last Admin: 10/22/19 08:36 Dose: 667 mg Documented by: Heparin Sodium (Porcine) (Heparin -) 5,000 unit SQ TID [facility] Last Admin: 10/22/19 06:45 Dose: 5,000 unit Documented by: Ampicillin Sodium/Sulbactam (Sodium 1.5 gm/ Sodium Chloride) 100 mls @ 200 mls/hr IVPB BID [facility] Last Admin: 10/21/19 21:24 Dose: 200 mls/hr Documented by: Sodium Chloride (Normal Saline -) 1,000 mls @ 83 mls/hr IV ASDIR [facility] Last Admin: 10/21/19 09:59 Dose: Not Given Documented by: Insulin Aspart (Novolog Vial Sliding Scale -) 1 vial SQ ACHS [facility]; Protocol Last Admin: 10/22/19 06:44 Dose: 6 units Documented by: Levothyroxine Sodium (Synthroid -) 75 mcg PO DAILY@0700 [facility] Last Admin: 10/22/19 06:45 Dose: 75 mcg Documented by: Multivitamins/Minerals/Vitamin C (Tab-A-Vit -) 1 tab PO DAILY [facility] Last Admin: 10/21/19 09:58 Dose: 1 tab Documented by: Oseltamivir Phosphate (Tamiflu -) 30 mg PO BID [facility] Stop: 10/23/19 12:14 Last Admin: 10/21/19 21:25 Dose: 30 mg Documented by: - Objective Vital Signs: Vital Signs Temperature 97.9 F 10/22/19 06:49 Pulse Rate 76 10/22/19 06:49 Respiratory Rate 20 10/22/19 06:49 Blood Pressure 155/83 10/22/19 06:49 O2 Sat by Pulse Oximetry (%) 96 10/21/19 22:00 Middle aged man c/o congestion JHEENT: Mm moist, no anemia NECK: + JVd No Bruit CHEST: B/L crepts ABD: Obese distended Bs + EXT: Edematous , non tender Labs: CBC, BMP 10/21/19 06:25 10/22/19 05:50 INR, PTT INR 1.01 (0.83-1.09) 10/17/19 12:11 Problem List - Problems (1) HAYLEY (acute kidney injury) Assessment/Plan: F/U Renal consult IP/OP chart daily weight received IV Laxsix Problems reviewed: Yes Code(s): N17.9 - ACUTE KIDNEY FAILURE, UNSPECIFIED (2) Fluid overload Assessment/Plan: IV lasix F/U IP/Op chart daily wt Problems reviewed: Yes Code(s): E87.70 - FLUID OVERLOAD, UNSPECIFIED (3) HTN (hypertension) Assessment/Plan: cont all home meds Problems reviewed: Yes Code(s): I10 - ESSENTIAL (PRIMARY) HYPERTENSION (4) Influenza Assessment/Plan: completed pj flu Problems reviewed: Yes Code(s): J11.1 - FLU DUE TO UNIDENTIFIED INFLUENZA VIRUS W OTH RESP MANIFEST (5) T2DM (type 2 diabetes mellitus) Assessment/Plan: Cont correction dose insulin Problems reviewed: Yes Code(s): E11.9 - TYPE 2 DIABETES MELLITUS WITHOUT COMPLICATIONS
[2019-10-22] MEDS ORDERED: PT OWN MED DRAWER 7, Y5N ONE ×2 (10:26→22:23)
[2019-10-22] MEDS ORDERED: AMPICILLIN NA/SULBACTAM NA 1.5 GM VIAL ONE ×2 (10:26→22:24)
[2019-10-22] MEDS ORDERED: SODIUM CHLORIDE 100 ML IVPB ONE ×2 (10:26→22:24)
[2019-10-22] MEDS ORDERED: FUROSEMIDE 40 MG/4 ML INJECTABLE VIAL IVPUSH ONE (10:35)
--- NOTE | 2019-10-22 10:36 | PN ---
Progress Note, Physician History of Present Illness: Pt seen and examined at bedside. He is awake and alert. He complains of lower ext edema. He denies cough. - Current Medication List Current Medications: Active Medications Albuterol/Ipratropium (Duoneb -) 1 amp NEB Q4H PRN PRN Reason: SHORTNESS OF BREATH Albuterol/Ipratropium (Duoneb -) 1 amp NEB RTID [facility] Last Admin: 10/21/19 21:20 Dose: 1 amp Documented by: Amlodipine Besylate (Norvasc -) 5 mg PO DAILY [facility] Last Admin: 10/21/19 11:19 Dose: 5 mg Documented by: Calcium Acetate (Phoslo -) 667 mg PO TIDCM [facility] Last Admin: 10/22/19 08:36 Dose: 667 mg Documented by: Heparin Sodium (Porcine) (Heparin -) 5,000 unit SQ TID [facility] Last Admin: 10/22/19 06:45 Dose: 5,000 unit Documented by: Ampicillin Sodium/Sulbactam (Sodium 1.5 gm/ Sodium Chloride) 100 mls @ 200 mls/hr IVPB BID [facility] Last Admin: 10/21/19 21:24 Dose: 200 mls/hr Documented by: Sodium Chloride (Normal Saline -) 1,000 mls @ 83 mls/hr IV ASDIR [facility] Last Admin: 10/21/19 09:59 Dose: Not Given Documented by: Insulin Aspart (Novolog Vial Sliding Scale -) 1 vial SQ ACHS [facility]; Protocol Last Admin: 10/22/19 06:44 Dose: 6 units Documented by: Levothyroxine Sodium (Synthroid -) 75 mcg PO DAILY@0700 [facility] Last Admin: 10/22/19 06:45 Dose: 75 mcg Documented by: Multivitamins/Minerals/Vitamin C (Tab-A-Vit -) 1 tab PO DAILY [facility] Last Admin: 10/21/19 09:58 Dose: 1 tab Documented by: Oseltamivir Phosphate (Tamiflu -) 30 mg PO BID [facility] Stop: 10/23/19 12:14 Last Admin: 10/21/19 21:25 Dose: 30 mg Documented by: - Objective Vital Signs: Vital Signs Temperature 97.9 F 10/22/19 06:49 Pulse Rate 76 10/22/19 06:49 Respiratory Rate 20 10/22/19 06:49 Blood Pressure 155/83 10/22/19 06:49 O2 Sat by Pulse Oximetry (%) 96 10/21/19 22:00 Constitutional: Yes: Calm Eyes: Yes: Conjunctiva Clear HENT: Yes: Atraumatic Cardiovascular: Yes: S1, S2 Respiratory: Yes: CTA Bilaterally Gastrointestinal: Yes: Soft, Abdomen, Obese Genitourinary: Yes: WNL Musculoskeletal: Yes: WNL Edema: Yes Edema: LLE: 3+, RLE: 3+ Neurological: Yes: Oriented Psychiatric: Yes: Oriented Labs: CBC, BMP 10/21/19 06:25 10/22/19 05:50 INR, PTT INR 1.01 (0.83-1.09) 10/17/19 12:11 Problem List - Problems (1) HAYLEY (acute kidney injury) Code(s): N17.9 - ACUTE KIDNEY FAILURE, UNSPECIFIED (2) CKD (chronic kidney disease) Code(s): N18.9 - CHRONIC KIDNEY DISEASE, UNSPECIFIED Assessment/Plan Current Medications Generic Name Dose Route Start Last Admin Trade Name Freq PRN Reason Stop Dose Admin Albuterol/Ipratropium 1 amp 10/17/19 21:52 Duoneb - NEB Q4H PRN SHORTNESS OF BREATH Albuterol/Ipratropium 1 amp 10/18/19 08:00 10/21/19 21:20 Duoneb - NEB 1 amp RTID JOSE ANGEL Administration Amlodipine Besylate 5 mg 10/21/19 10:45 10/21/19 11:19 Norvasc - PO 5 mg DAILY JOSE ANGEL Administration Calcium Acetate 667 mg 10/20/19 17:30 10/22/19 08:36 Phoslo - PO 667 mg TIDCM [facility] ANGEL Administration Heparin Sodium (Porcine) 5,000 unit 10/17/19 22:00 10/22/19 06:45 Heparin - SQ 5,000 unit TID JOSE ANGEL Administration Ampicillin Sodium/Sulbactam 100 mls @ 200 mls/hr 10/18/19 10:11 10/21/19 21:24 Sodium 1.5 gm/ Sodium Chloride IVPB 200 mls/hr BID JOSE ANGEL Administration Sodium Chloride 1,000 mls @ 83 mls/hr 10/21/19 09:30 10/21/19 09:59 Normal Saline - IV Not Given ASDIR JOSE ANGEL Insulin Aspart 1 vial 10/18/19 11:00 10/22/19 06:44 Novolog Vial Sliding Scale - SQ 6 units ACHS JOSE ANGEL Administration Protocol Levothyroxine Sodium 75 mcg 10/21/19 07:00 10/22/19 06:45 Synthroid - PO 75 mcg DAILY@0700 JOSE ANGEL Administration Multivitamins/Minerals/Vitamin C 1 tab 10/21/19 10:00 10/21/19 09:58 Tab-A-Vit - PO 1 tab DAILY [facility] ANGEL Administration Oseltamivir Phosphate 30 mg 10/18/19 12:15 10/21/19 21:25 Tamiflu - PO 10/23/19 12:14 30 mg BID JOSE ANGEL Administration Laboratory Tests 10/21/19 10/22/19 06:25 05:50 Creatine Kinase 9025 H 6365 H Impression 1. HAYLEY 2. CKD 3. influenza 4. rhabdo 5. chf 6. dyspnea 7. vomiting and diarrhea 8. nephrotic range proteinuria Plan - pt is volume overlaoded, hold fluids for now - will give a dose of lasix - monitor volume status - monitor bp - can add hydralazine if bp rises - cpk is improving (he has been off of fluids since yesterday - do not restart arb as mold hoister is elevated
[2019-10-22] MEDS: amLODIPine BESYLATE 5 MG TABLET (FP) PO SCH (10:56)
[2019-10-22] MEDS: MULTIVITAMINS (DAILY MVI) TABLET (FP) PO SCH (10:56)
[2019-10-22] MEDS: OSELTAMIVIR PHOSPHATE 30 MG CAPSULE PO SCH ×2 (10:57→22:56)
[2019-10-22] MEDS: AMPICILLIN NA/SULBACTAM NA 1.5 GM in SODIUM CHLORIDE 100 ML IVPB SCH ×2 (10:57→22:55)
[2019-10-22] MEDS: hydrALAZINE HCL 25 MG TABLET (FP) PO SCH ×2 (14:09→22:55)
[2019-10-22] MEDS: SODIUM CHLORIDE 1,000 ML IV SCH (22:48)
[2019-10-23] MEDS: hydrALAZINE HCL 25 MG TABLET (FP) PO SCH ×3 (06:48→21:26)
[2019-10-23] MEDS: HEPARIN NA (PORCINE) 5,000 UNITS/ML 1ML VIAL SQ SCH ×3 (06:49→22:57)
[2019-10-23] MEDS: LEVOTHYROXINE NA 75 MCG TABLET (FP) PO SCH (06:49)
[2019-10-23] MEDS: INSULIN SLIDING SCALE (NOVOLOG) 1 VIAL SQ SCH ×4 (06:54→22:57)
[2019-10-23 08:42] LABS: BASO % 1.1 % (0-2.0); EOS % 2.5 % (0-4.5); HEMATOCRIT 33.6 % (35.4-49); LYMPH % 31.1 % (8-40); MCH 29.4 pg (25.7-33.7); MCHC 32.8 g/dl (32.0-35.9); MEAN CELL VOLUME 89.6 fl (80-96); MEAN PLT VOLUME 8.9 fl (7.5-11.1); MONO % 10.2 % (3.8-10.2); NEUT % 55.1 % (42.8-82.8); PLATELET COUNT 203 K/MM3 (134-434); RBC 3.75 M/mm3 (4.00-5.60); RDW 14.7 % (11.9-15.9); WHITE BLOOD COUNT 7.6 K/mm3 (4.0-10.0)
[2019-10-23 09:16] LABS: ALBUMIN 1.8 g/dl (3.4-5.0); BILIRUBIN,TOTAL 0.2 mg/dL (0.2-1); BLOOD UREA NITROGEN 70.6 mg/dL (7-18); CALCIUM 7.9 mg/dL (8.5-10.1); POTASSIUM 4.9 mmol/L (3.5-5.1); TOT PROT 6.3 g/dl (6.4-8.2)
[2019-10-23] MEDS ORDERED: AMPICILLIN NA/SULBACTAM NA 1.5 GM VIAL ONE ×2 (10:32→22:36)
[2019-10-23] MEDS ORDERED: PT OWN MED DRAWER 7, Y5N ONE (10:32)
[2019-10-23] MEDS ORDERED: SODIUM CHLORIDE 100 ML IVPB ONE ×2 (10:32→22:36)
[2019-10-23] MEDS: AMPICILLIN NA/SULBACTAM NA 1.5 GM in SODIUM CHLORIDE 100 ML IVPB SCH ×2 (10:38→22:56)
[2019-10-23] MEDS: amLODIPine BESYLATE 5 MG TABLET (FP) PO SCH (10:38)
[2019-10-23] MEDS: OSELTAMIVIR PHOSPHATE 30 MG CAPSULE PO SCH (10:39)
[2019-10-23] MEDS: MULTIVITAMINS (DAILY MVI) TABLET (FP) PO SCH (10:39)
[2019-10-23] MEDS: CALCIUM ACETATE 667 MG CAPSULE (FP) PO SCH ×3 (10:39→17:45)
--- NOTE | 2019-10-23 11:22 | PN ---
Progress Note, Physician Chief Complaint: Feels bloated and congested History of Present Illness: 59 year old male with history of DM type 2, hypothyrodism, hypertension, CKD who presented with SOB with N/V and found to have HAYLEY and Rhabdomyolysis. - Current Medication List Current Medications: Active Medications Amlodipine Besylate (Norvasc -) 5 mg PO DAILY [facility] Last Admin: 10/23/19 10:38 Dose: 5 mg Documented by: Calcium Acetate (Phoslo -) 667 mg PO TIDCM [facility] Last Admin: 10/23/19 10:39 Dose: 667 mg Documented by: Heparin Sodium (Porcine) (Heparin -) 5,000 unit SQ TID [facility] Last Admin: 10/23/19 06:49 Dose: 5,000 unit Documented by: Hydralazine HCl (Apresoline -) 25 mg PO TID [facility] Last Admin: 10/23/19 06:48 Dose: 25 mg Documented by: Ampicillin Sodium/Sulbactam (Sodium 1.5 gm/ Sodium Chloride) 100 mls @ 200 mls/hr IVPB BID [facility] Last Admin: 10/23/19 10:38 Dose: 200 mls/hr Documented by: Sodium Chloride (Normal Saline -) 1,000 mls @ 83 mls/hr IV ASDIR [facility] Last Admin: 10/22/19 22:48 Dose: Not Given Documented by: Insulin Aspart (Novolog Vial Sliding Scale -) 1 vial SQ ACHS [facility]; Protocol Last Admin: 10/23/19 06:54 Dose: Not Given Documented by: Levothyroxine Sodium (Synthroid -) 75 mcg PO DAILY@0700 [facility] Last Admin: 10/23/19 06:49 Dose: 75 mcg Documented by: Multivitamins/Minerals/Vitamin C (Tab-A-Vit -) 1 tab PO DAILY [facility] Last Admin: 10/23/19 10:39 Dose: 1 tab Documented by: - Objective Vital Signs: Vital Signs Temperature 97.5 F L 10/23/19 09:45 Pulse Rate 85 10/23/19 09:45 Respiratory Rate 20 10/23/19 09:45 Blood Pressure 147/58 L 10/23/19 09:45 O2 Sat by Pulse Oximetry (%) 97 10/22/19 21:00 Intake & Output 10/20/19 10/21/19 10/22/19 10/24/19 23:59 23:59 23:59 00:59 Intake Total 1600 1853 885 Output Total 800 1800 1350 Balance 800 53 -465 Weight 276 lb Middle aged man c/o congestion HEENT: Mm moist, no anemia NECK: + JVd No Bruit CHEST: B/L crepts CVS; S1S2 R ABD: Obese distended Bs + EXT: Edematous , non tender Labs: CBC, BMP 10/23/19 08:32 10/23/19 08:32 INR, PTT INR 1.01 (0.83-1.09) 10/17/19 12:11 Problem List - Problems (1) HAYLEY (acute kidney injury) Assessment/Plan: F/U Renal consult IP/OP chart daily weight received IV Laxsix Code(s): N17.9 - ACUTE KIDNEY FAILURE, UNSPECIFIED (2) Fluid overload Assessment/Plan: IV lasix F/U IP/Op chart daily wt Code(s): E87.70 - FLUID OVERLOAD, UNSPECIFIED (3) HTN (hypertension) Assessment/Plan: cont all home meds Code(s): I10 - ESSENTIAL (PRIMARY) HYPERTENSION (4) Influenza Assessment/Plan: completed pj flu Code(s): J11.1 - FLU DUE TO UNIDENTIFIED INFLUENZA VIRUS W OTH RESP MANIFEST (5) T2DM (type 2 diabetes mellitus) Assessment/Plan: Cont correction dose insulin Code(s): E11.9 - TYPE 2 DIABETES MELLITUS WITHOUT COMPLICATIONS
[2019-10-23] MEDS: SODIUM CHLORIDE 1,000 ML IV SCH (11:32)
--- NOTE | 2019-10-23 15:47 | PN ---
Progress Note, Physician History of Present Illness: Pt seen and examined at bedside. He is awake and alert. He denies shortness of breath at rest. - Current Medication List Current Medications: Active Medications Amlodipine Besylate (Norvasc -) 5 mg PO DAILY [facility] Last Admin: 10/23/19 10:38 Dose: 5 mg Documented by: Calcium Acetate (Phoslo -) 667 mg PO TIDCM [facility] Last Admin: 10/23/19 14:03 Dose: 667 mg Documented by: Heparin Sodium (Porcine) (Heparin -) 5,000 unit SQ TID [facility] Last Admin: 10/23/19 14:03 Dose: 5,000 unit Documented by: Hydralazine HCl (Apresoline -) 25 mg PO TID [facility] Last Admin: 10/23/19 14:03 Dose: 25 mg Documented by: Ampicillin Sodium/Sulbactam (Sodium 1.5 gm/ Sodium Chloride) 100 mls @ 200 mls/hr IVPB BID [facility] Last Admin: 10/23/19 10:38 Dose: 200 mls/hr Documented by: Sodium Chloride (Normal Saline -) 1,000 mls @ 83 mls/hr IV ASDIR [facility] Last Admin: 10/23/19 11:32 Dose: Not Given Documented by: Insulin Aspart ([facility]ial Sliding [facility] -) [facility]; Protocol Last Admin: 10/23/19 12:07 Dose: 4 units Documented by: Levothyroxine Sodium (Synthroid -) 75 mcg PO DAILY@0700 [facility] Last Admin: 10/23/19 06:49 Dose: 75 mcg Documented by: Multivitamins/Minerals/Vitamin C (Tab-A-Vit -) 1 tab PO DAILY [facility] Last Admin: 10/23/19 10:39 Dose: 1 tab Documented by: - Objective Vital Signs: Vital Signs Temperature 98.1 F 10/23/19 14:00 Pulse Rate 82 10/23/19 14:00 Respiratory Rate 20 10/23/19 14:00 Blood Pressure 177/95 H 10/23/19 14:00 O2 Sat by Pulse Oximetry (%) 97 10/23/19 09:00 Constitutional: Yes: Calm Eyes: Yes: Conjunctiva Clear HENT: Yes: Atraumatic Neck: Yes: Supple Cardiovascular: Yes: S1, S2 Respiratory: Yes: On Nasal O2 Gastrointestinal: Yes: Soft, Abdomen, Obese Genitourinary: Yes: WNL Musculoskeletal: Yes: WNL Edema: Yes Edema: LLE: 3+, RLE: 3+ Neurological: Yes: Oriented Psychiatric: Yes: Oriented Labs: CBC, BMP 10/23/19 08:32 10/23/19 08:32 INR, PTT INR 1.01 (0.83-1.09) 10/17/19 12:11 Problem List - Problems (1) HAYLEY (acute kidney injury) Code(s): N17.9 - ACUTE KIDNEY FAILURE, UNSPECIFIED (2) CKD (chronic kidney disease) Code(s): N18.9 - CHRONIC KIDNEY DISEASE, UNSPECIFIED Assessment/Plan Current Medications Generic Name Dose Route Start Last Admin Trade Name Freq PRN Reason Stop Dose Admin Amlodipine Besylate 5 mg 10/21/19 10:45 10/23/19 10:38 Norvasc - PO 5 mg DAILY JO[facility] ANGEL Administration Calcium Acetate 667 mg 10/20/19 17:30 10/23/19 14:03 Phoslo - PO 667 mg TIDCM [facility] ANGEL Administration Heparin Sodium (Porcine) 5,000 unit 10/17/19 22:00 10/23/19 14:03 Heparin - SQ 5,000 unit TID [facility] ANGEL Administration Hydralazine HCl 25 mg 10/22/19 14:00 10/23/19 14:03 Apresoline - PO 25 mg TID [facility] ANGEL Administration Ampicillin Sodium/Sulbactam 100 mls @ 200 mls/hr 10/18/19 10:11 10/23/19 10:38 Sodium 1.5 gm/ Sodium Chloride IVPB 200 mls/hr BID [facility] ANGEL Administration Insulin Aspart 1 vial 10/18/19 11:00 10/23/19 12:07 Novolog Vial Sliding Scale - SQ 4 units ACHS [facility]GEL Administration Protocol Levothyroxine Sodium 75 mcg 10/21/19 07:00 10/23/19 06:49 Synthroid - PO 75 mcg DAILY@0700 JOSE ANGEL Administration Multivitamins/Minerals/Vitamin C 1 tab 10/21/19 10:00 10/23/19 10:39 Tab-A-Vit - PO 1 tab DAILY [facility] Administration Impression 1. HAYLEY 2. CKD 3. influenza 4. rhabdo 5. chf 6. dyspnea 7. vomiting and diarrhea 8. 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
[2019-10-23] MEDS ORDERED: FUROSEMIDE 40 MG/4 ML INJECTABLE VIAL IVPUSH ONE (16:45)
[2019-10-23] MEDS ORDERED: INSULIN SLIDING SCALE (NOVOLOG) 1 VIAL SQ ONE (23:31)
[2019-10-24 06:17] VITALS: BP 176/105; PULSE 88; TEMP 97.5
[2019-10-24] MEDS: INSULIN SLIDING SCALE (NOVOLOG) 1 VIAL SQ SCH (06:23)
[2019-10-24] MEDS: hydrALAZINE HCL 25 MG TABLET (FP) PO SCH (06:30)
[2019-10-24] MEDS: HEPARIN NA (PORCINE) 5,000 UNITS/ML 1ML VIAL SQ SCH (06:30)
[2019-10-24] MEDS: LEVOTHYROXINE NA 75 MCG TABLET (FP) PO SCH (06:30)
[2019-10-24 06:43] LABS: BASO % 1.2 % (0-2.0); EOS % 3.3 % (0-4.5); HEMATOCRIT 35.5 % (35.4-49); HEMOGLOBIN 11.7 GM/dL (11.7-16.9); LYMPH % 25.7 % (8-40); MCHC 32.9 g/dl (32.0-35.9); MEAN CELL VOLUME 88.2 fl (80-96); MEAN PLT VOLUME 8.7 fl (7.5-11.1); MONO % 9.3 % (3.8-10.2); NEUT % 60.5 % (42.8-82.8); PLATELET COUNT 260 K/MM3 (134-434); RBC 4.02 M/mm3 (4.00-5.60); RDW 14.7 % (11.9-15.9); WHITE BLOOD COUNT 6.5 K/mm3 (4.0-10.0)
[2019-10-24 07:00] LABS: BILIRUBIN,TOTAL 0.3 mg/dL (0.2-1); BLOOD UREA NITROGEN 68.4 mg/dL (7-18); CALCIUM 7.8 mg/dL (8.5-10.1); CREATININE 3.7 mg/dL (0.55-1.3); TOT PROT 6.7 g/dl (6.4-8.2)
== END 2019-10-24 10:00 | disposition left against medical advice (07) | DRG 682 ==
LOC: JER 10:00 → JERBED 13:56 → J4S 10-18 02:50
PROVIDERS: ADMIT Internal Medicine; ATTEND Internal Medicine
DX: N17.9 Acute kidney failure, unspecified (principal); J10.00 Influenza due to other identified influenza virus with unspecified type of pneumonia; J96.01 Acute respiratory failure with hypoxia; I40.9 Acute myocarditis, unspecified; M62.82 Rhabdomyolysis; I24.8 Other forms of acute ischemic heart disease; Z68.42 Body mass index [BMI] 45.0-49.9, adult; E46 Unspecified protein-calorie malnutrition; I13.0 Hypertensive heart and chronic kidney disease with heart failure and stage 1 through stage 4 chronic kidney disease, or unspecified chronic kidney disease; I50.30 Unspecified diastolic (congestive) heart failure; E11.9 Type 2 diabetes mellitus without complications; E03.9 Hypothyroidism, unspecified; E66.01 Morbid (severe) obesity due to excess calories; E88.09 Other disorders of plasma-protein metabolism, not elsewhere classified; J10.2 Influenza due to other identified influenza virus with gastrointestinal manifestations; J10.1 Influenza due to other identified influenza virus with other respiratory manifestations; N18.3 Chronic kidney disease, stage 3 (moderate); E87.70 Fluid overload, unspecified; R07.9 Chest pain, unspecified; R74.0 Nonspecific elevation of levels of transaminase and lactic acid dehydrogenase [LDH]; R19.7 Diarrhea, unspecified
CPT/HCPCS: 36415; 71045-TC-FY; 74176-TC; 76775-TC; 80048; 80053; 80074; 81003; 82438; 82550; 82553; 82565; 82570; 82962; 83735; 83874; 83880; 83986; 84100; 84156; 84300; 84302; 84484; 84999; 85025; 85610; 85730; 87045; 87046; 87086; 87205; 87324; 87449; 87804; 93005; 93010; 93306-TC; 94640; 97116-GP; 97161-GP; 99291; J1644; J7030

== ENCOUNTER 2020-04-17 11:16 | Observation (INO) | payer MEDICARE, OTHER ==
--- NOTE | 2020-04-17 11:48 | PDOC ---
History of Present Illness - General Stated Complaint: RT FOOT LAC Time Seen by Provider: 04/17/20 11:47 - History of Present Illness Initial Comments: 04/17/20 11:47 HPI: 59 y/o M with hx of HTN, IDDM, LIZANDRO, chronic BL LE lymphedema and hypothyroidism presenting from home for foot laceration. Patient reported he got up to the bathroom after midnight and on his way back fell with his foot getting caught between the chair and cabinet. He was able to get back to bed with the help of his son however this morning his aid that administers his lymphedema compression boots noticed blood and a laceration at the base of his right foot. Brought him to the ER for further eval. Patient denies fever, chills, chest pain, SOB, abd pain, n/v, dysuria, SEYMOUR, neck pain PMHx: as noted above ROS: as noted SHx: Denies tobacco use; no alcohol use; no rec drugs Allergies: NKDA ROS: GENERAL/CONSTITUTIONAL: No fever or chills. No weakness. HEAD, EYES, EARS, NOSE AND THROAT: No change in vision. No ear pain or discharge. No sore throat. CARDIOVASCULAR: No chest pain or shortness of breath RESPIRATORY: No cough, wheezing, or hemoptysis. GASTROINTESTINAL: No nausea, vomiting, diarrhea or constipation. GENITOURINARY: No dysuria, frequency, or change in urination. MUSCULOSKELETAL: No joint or muscle swelling or pain. No neck or back pain. SKIN: +right foot lac NEUROLOGIC: No headache, vertigo, loss of consciousness, or change in strength/sensation. ENDOCRINE: No increased thirst. No abnormal weight change HEMATOLOGIC/LYMPHATIC: No anemia, easy bleeding, or history of blood clots. ALLERGIC/IMMUNOLOGIC: No hives or skin allergy. PE: GENERAL: Awake, alert, and fully oriented, no acute distress HEAD: No signs of trauma, normocephalic, atraumatic EYES: EOMI, sclera anicteric, conjunctiva clear ENT: Auricles normal inspection, hearing grossly normal, nares patent, oropharynx clear without exudates. Moist mucosa NECK: Normal ROM, no lymphadenopathy LUNGS: No increased work of breathing, sturdor, symmetrical chest rise, BL rales HEART: Regular rate, regular rhythm, normal S1 and S2, no murmur, peripheral pulses 2+ and equal bilaterally. ABDOMEN: morbid obesity, protuberant, nontender. No guarding, no rebound. No masses. No CVAT MUSCULOSKELETAL: FROM, BL LE lymphedema, left big toe amputation NEUROLOGICAL: Cranial nerves II through XII grossly intact. Normal speech, no focal sensorimotor deficits SKIN: right 4th and 5th metatarsal laceration at the base Past History - Medical History Allergies/Adverse Reactions: Allergies Allergy/AdvReac Type Severity Reaction Status Date / Time No Known Allergies Allergy Verified 10/17/19 10:47 Home Medications: Ambulatory Orders metFORMIN HCL [Metformin HCl ER] 1,000 mg PO DAILY 07/28/16 Amlodipine Besylate [Norvasc -] 5 mg PO DAILY #0 tablet 08/08/16 Sitagliptin Phosphate [Januvia -] 100 mg PO DAILY@0700 #0 ud 08/08/16 Albuterol Sulfate Inhaler - [Ventolin Hfa Inhaler -] 1 - 2 inh PO PRN PRN 05/28/17 Glipizide 5 mg PO DAILY 05/28/17 Insulin Glargine,Hum.rec.anlog [Lantus Solostar PEN (NF)] 40 units SQ BID 05/28/17 Levothyroxine [Synthroid -] 75 mcg PO DAILY@0700 05/28/17 Losartan Potassium [Cozaar -] 100 mg PO DAILY 05/28/17 Ammonium Lactate Cream [Lac-Hydrin 12% *Cream*] 1 applic TP DAILY #1 tube 11/15/18 Naftifine HCl [Naftin] 60 gm TP DAILY #1 tube 05/12/19 Anemia: No Asthma: Yes Cancer: No Cardiac Disorders: No CVA: No COPD: No CHF: No Dementia: No Diabetes: Yes GI Disorders: No Disorders: No HTN: Yes Hypercholesterolemia: No Liver Disease: No Seizures: Yes Thyroid Disease: Yes (HYPO) - Surgical History Abdominal Surgery: No Cardiac Surgery: No Cholecystectomy: No Lung Surgery: No Neurologic Surgery: No Orthopedic Surgery: Yes (LT GREAT TOE AMPUTATION) - Immunization History Immunization Up to Date: Yes - Psycho-Social/Smoking History Smoking Status: Yes Smoking History: Former smoker Have you smoked in the past 12 months: No Number of Cigarettes Smoked Daily: 0 If you are a former smoker, when did you quit?: 3 YRS ED Treatment Course - LABORATORY CBC & Chemistry Diagram: 04/17/20 12:07 04/17/20 12:07 Medical Decision Making - Medical Decision Making 04/17/20 12:30 59 y/o M with hx of HTN, IDDM, LIZANDRO, chronic BL LE lymphedema and hypothyroidism presenting from home for foot laceration following fall with possible syncope. VSS, AF. PE with laceration at the base of the 4th/5th metatarsal linear and well approximated and BL rales -cbc, cmp, coags, card prof, ekg, cxr, ct head, right foot XR -reassess 04/17/20 13:58 podiatry consult will admit for syncope fall and right foot laceration for pod eval and possible fluid overload Discharge - Discharge Information Problems reviewed: Yes Clinical Impression/Diagnosis: Laceration, Syncope, Fluid overload Condition: Stable - Follow up/Referral Referrals: Gee Perez MD [Primary Care Provider] - - Patient Discharge Instructions - Post Discharge Activity
[2020-04-17 11:57] VITALS: TEMP 97.7; BMI 54.1
[2020-04-17 12:22] LABS: BASO % 0.9 % (0-2.0); EOS % 6.4 % (0-4.5); HEMATOCRIT 34.1 % (35.4-49); HEMOGLOBIN 11.1 GM/dL (11.7-16.9); LYMPH % 29.7 % (8-40); MCHC 32.6 g/dl (32.0-35.9); MONO % 8.7 % (3.8-10.2); NEUT % 54.3 % (42.8-82.8); PLATELET COUNT 218 K/MM3 (134-434); RBC 3.71 M/mm3 (4.00-5.60); RDW 14.3 % (11.9-15.9); WHITE BLOOD COUNT 7.9 K/mm3 (4.0-10.0)
[2020-04-17 12:28] LABS: INR 0.92 (0.83-1.09); PROTHROMBIN TIME (PATIENT) 10.8 SEC (9.7-13.0)
[2020-04-17 12:31] LABS: ACTIVATED PTT 30.1 SECONDS (25.2-36.5)
[2020-04-17 13:03] LABS: ALBUMIN 2.4 g/dl (3.4-5.0); ALK PHOS 95 U/L (45-117); ANION GAP 3 MMOL/L (8-16); BILIRUBIN,TOTAL 0.2 mg/dL (0.2-1); BLOOD UREA NITROGEN 35.2 mg/dL (7-18); CALCIUM 7.8 mg/dL (8.5-10.1); CHLORIDE 106 mmol/L (98-107); CO2 31 mmol/L (21-32); CREATININE 3.7 mg/dL (0.55-1.3); GLUCOSE,RANDOM 129 mg/dL (74-106); MAGNESIUM 2.2 mg/dL (1.8-2.4); POTASSIUM 4.2 mmol/L (3.5-5.1); SGOT/AST 41 U/L (15-37); SGPT/ALT 25 U/L (13-61); SODIUM 140 mmol/L (136-145); TOT PROT 7.4 g/dl (6.4-8.2)
[2020-04-17 13:04] LABS: ANISOCYTOSIS 0; MACROCYTOSIS 0; PLATELET ESTIMATE NORMAL
--- NOTE | 2020-04-17 15:29 | PDOC ---
Documentation entered by Dagoberto Alfaro SCRIBE, acting as scribe for Giovanni Griffin MD. Giovanni Griffin MD: This documentation has been prepared by the Angelina adhikari Xhesika, SCRIBE, under my direction and personally reviewed by me in its entirety. I confirm that the documentation accurately reflects all work, treatment, procedures, and medical decision making performed by me. Attending Attestation - Resident Resident Name: Sissy Magana - ED Attending Attestation I have performed the following: I have examined & evaluated the patient, The case was reviewed & discussed with the resident, I agree w/resident's findings & plan, Exceptions are as noted - HPI HPI: 04/17/20 12:15 The patient is a 59y/o M with a PMH of HTN, CHF, IDDM, LIZANDRO, chronic BL LE lymphedema and hypothyroidism who presents to the ED for R foot laceration. Pt states he was going to the bathroom and on his way back his foot got caught between the chair and cabinet causing him to fall. Pt was able to get back to bed with assistance from his son. Pt is unsure if he hit is head or if he lost consciousness. Allergies:NKDA PCP: Gee Cummings General Assembler Installer: Dr. Russell/ Dr. Taylor - Physicial Exam PE: 04/17/20 12:17 Vitals: Triage Vital signs reviewed General Appearance: no acute distress, +morbidly obese Cardiac: Regular rate and rhythm, no murmurs, no rubs, no gallops, Lungs: +bilateral lung crackles. Abdomen: Soft, nondistended, normal bowel sounds, nontender to palpation Rectal: Exam deferred Extremities: + Laceration under 4th and 5th metatarsal. Skin: Warm and dry, Neuro: AOX3; Cranial Nerves 2-12 grossly c intact, Strength intact to all extremities, Sensation intact to all extremities - Medical Decision Making 04/17/20 16:40 Patient scheduled to be admitted for syncope versus fall however needs to take care of his son states that he is adamant that it was a mechanical fall not syncope Patient will leave hospital AGAINST MEDICAL ADVICE sutures placed by podiatry will follow-up as an outpatient. Antibiotics called in for patient Findings, need for follow-up and strict return instructions discussed with patient. Discharge - Discharge Information Problems reviewed: Yes Clinical Impression/Diagnosis: Laceration Syncope Qualifiers: Syncope type: unspecified Qualified Code(s): R55 - Syncope and collapse Fluid overload Qualifiers: Hypervolemia type: unspecified Qualified Code(s): E87.70 - Fluid overload, unspecified Condition: Stable Disposition: AGAINST MEDICAL ADVICE - Follow up/Referral - Patient Discharge Instructions - Post Discharge Activity
--- NOTE | 2020-04-17 15:59 | CONSULT ---
Consult - text type - Consultation Consultation Note: Podiatry Consultation: 59 year old diabetic male presents with lacerations to the plantar fourth and fifth digits. Patient recalls a history of trauma earlier today to the foot. Denies F/V/N/C/SOB/CP. Vitals stable. 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 Healed uneventfully. PMHx: IDDM, HTN, HLP, CHF, venous insufficiency Meds: noted ALL: NKMA LEISA: R foot: Pedal pulses 1/4, TG wnl, CFT brisk to all digits. There are lacerations noted to the plantar fourth and fifth digits, down to just superficial of flexor tendon, no bone exposed. Patient is able to digitally flex and extend on command. Epicritic and protective sensations diminished secondary to diabetic neuropathy. No purulence, no cellulitis, no signs of infection. Laceration noted to plantar third digit superficial. No ischemic changes to any of the digits. Gross pedal edema noted bilaterally. Imp: 59 year old diabetic male with traumatic lacerations to digits 4 and 5 of the right foot, without acute infection or foreign body PROCEDURE NOTE: Informed consent obtained. Due to diabetic neuropathy, no local anesthetic was required. The lacerations of the fourth and fifth digits were thoroughly irrigated with betadine to remove any loose debris. Once prepared, the lacerations of the fourth and fifth digits were coapted and maintained using 4-0 nylon in a simple interrupted suture fashion. Bacitracin and dry sterile dressing was applied after the procedure. The patient tolerated the procedure well without complications. He was instructed to keep dressing clean and dry. Surgical shoe dispensed. Recommend PO keflex x 7 days. [facility] check. Thank you for the courtesy of this consultation.
[2020-04-17 16:20] VITALS: BP 150/72; PULSE 74
--- NOTE | 2020-04-17 16:25 | EKG ---
Test Reason : Blood Pressure : / mmHG Vent. Rate : 075 BPM Atrial Rate : 075 BPM P-R Int : 152 ms QRS Dur : 092 ms QT Int : 402 ms P-R-T Axes : 053 -12 058 degrees QTc Int : 448 ms NORMAL SINUS RHYTHM NORMAL ECG WHEN COMPARED WITH ECG OF 17-OCT-2019 23:52, NO SIGNIFICANT CHANGE WAS FOUND Confirmed by MD YOU MOYSES ([id number]) on 04/17/2020 4:25:12 PM Referred By: Confirmed By:SALTY YOU MD
== END 2020-04-17 16:17 | disposition left against medical advice (07) ==
LOC: JER 11:16 → JERBED 15:51
PROVIDERS: ADMIT Internal Medicine; ATTEND Internal Medicine
PROC: 0HQMXZZ Repair Right Foot Skin, External Approach (ICD-10-PCS; principal; 2020-04-17)
DX: S91.114A Laceration without foreign body of right lesser toe(s) without damage to nail, initial encounter (principal); S91.111A Laceration without foreign body of right great toe without damage to nail, initial encounter; R55 Syncope and collapse; E87.70 Fluid overload, unspecified; E66.01 Morbid (severe) obesity due to excess calories; Z68.43 Body mass index [BMI] 50.0-59.9, adult; I50.9 Heart failure, unspecified; E78.5 Hyperlipidemia, unspecified; G47.33 Obstructive sleep apnea (adult) (pediatric); I89.0 Lymphedema, not elsewhere classified; W22.8XXA Striking against or struck by other objects, initial encounter; Y93.89 Activity, other specified; Y92.89 Other specified places as the place of occurrence of the external cause
CPT/HCPCS: 12002-25; 36415; 70450-TC; 71045-TC-FY; 73630-TC-RT-FY; 80053; 82550; 82553; 82962; 83735; 84484; 85025; 85610; 85730; 93005; 93010; 99285-25; G0378

== ENCOUNTER 2020-04-27 08:48 | Inpatient (IN) | payer MEDICARE, OTHER ==
--- NOTE | 2020-04-27 09:35 | PDOC ---
History of Present Illness - General Chief Complaint: Shortness of Breath Stated Complaint: EDEMA,SOB Time Seen by Provider: 04/27/20 09:16 - History of Present Illness Initial Comments: David Roberto is a 59 y/o male with PMH significant for CHF, IDDM, LIZANDRO, HTN, chronic BLE lymphedema, hypothryoidism, presenting for CHF and lower extremity edema. Reports that these symptoms have been going on for the past several months. He reports scrotal swelling that requires surgery and has seen Dr. Jennings for this. Went to his PCP last week for pre-op clearance and was sent to the ED for BLE edema. He was not able to stay for admission last week, so he returned to his PCP again today and was sent here for admission. Pt took 80 mg lasix QD (last dose yesterday) with minimal improvement of symptoms and an 8 lbs weight gain over the course of a week. Past History - Medical History Allergies/Adverse Reactions: Allergies Allergy/AdvReac Type Severity Reaction Status Date / Time No Known Allergies Allergy Verified 04/27/20 08:53 Home Medications: Ambulatory Orders Sitagliptin Phosphate [Januvia -] 100 mg PO DAILY@0700 #0 ud 08/08/16 Glipizide 5 mg PO DAILY 05/28/17 Insulin Glargine,Hum.rec.anlog [Lantus Solostar PEN (NF)] 10 units SQ BID 05/28/17 Levothyroxine [Synthroid -] 125 mcg PO DAILY@0700 05/28/17 Losartan Potassium [Cozaar -] 100 mg PO DAILY 05/28/17 Cephalexin [Keflex] 500 mg PO BID 7 Days #14 capsule 04/17/20 Furosemide [Lasix -] 80 mg PO DAILY 04/24/20 Amlodipine Besylate [Norvasc -] 10 mg PO DAILY 04/27/20 Atorvastatin Ca [Lipitor] 20 mg PO HS 04/27/20 Multivitamin/Iron/Folic Acid [Centrum Adults Tablet] 1 each PO DAILY 04/27/20 Nifedipine [Nifedipine ER] 60 mg PO DAILY 04/27/20 Vitamin A 10,000 unit PO DAILY 04/27/20 Anemia: No Asthma: Yes Cancer: No Cardiac Disorders: No CVA: No COPD: No CHF: No Dementia: No Diabetes: Yes GI Disorders: No Disorders: No HTN: Yes Hypercholesterolemia: No Liver Disease: No Seizures: Yes Thyroid Disease: Yes (HYPO) Other medical history: obesity - Surgical History Abdominal Surgery: No Cardiac Surgery: No Cholecystectomy: No Lung Surgery: No Neurologic Surgery: No Orthopedic Surgery: Yes (LT GREAT TOE AMPUTATION) - Immunization History Immunization Up to Date: Yes - Psycho-Social/Smoking History Smoking Status: Yes Smoking History: Never smoked Have you smoked in the past 12 months: No Number of Cigarettes Smoked Daily: 0 If you are a former smoker, when did you quit?: 3 YRS Information on smoking cessation initiated: No - Substance Abuse Hx (Audit-C & DAST Scrn) How often the patient has a drink containing alcohol: Never Score: In Men: 4 or > Positive; In Women: 3 or > Positive: 0 Screen Result (Pos requires Nsg. Audit-10AR): Negative In the last yr the pt used illegal drug/Rx for NonMed reason: No Score: Yes response is considered Positive: 0 Screen Result (Positive result requires Nsg. DAST-10): Negative Review of Systems - Review of Systems Comments:: GENERAL/CONSTITUTIONAL: No fever or chills. No weakness._ HEAD, EYES, EARS, NOSE AND THROAT: No change in vision. No change in hearing. No sore throat._ CARDIOVASCULAR: No chest pain or shortness of breath_ RESPIRATORY: Denies cough, hemoptysis_ GASTROINTESTINAL: No nausea, vomiting, diarrhea or constipation._ GENITOURINARY: No dysuria, frequency, or change in urination. Reports scrotal swelling. MUSCULOSKELETAL: Reports bilateral lower extremity swelling. No neck or back pain._ SKIN: No rash_ NEUROLOGIC: No headache, vertigo, loss of consciousness, or change in strength/sensation._ ENDOCRINE: No increased thirst. No abnormal weight change_ HEMATOLOGIC/LYMPHATIC: No anemia, easy bleeding, or history of blood clots._ ALLERGIC/IMMUNOLOGIC: No hives or skin allergy._ *Physical Exam - Vital Signs Last Vital Signs Temp Pulse Resp BP Pulse Ox 98.4 F 81 21 H 135/62 96 04/27/20 08:51 04/27/20 08:51 04/27/20 08:51 04/27/20 08:51 04/27/20 08:51 - Physical Exam GENERAL: Awake, alert, and oriented to person/place/time, in no acute distress_ HEAD: No signs of trauma, normocephalic, atraumatic _ EYES: PERRLA, EOMI, sclera anicteric, conjunctiva clear_ ENT: Hearing grossly normal, nares patent, oropharynx clear without exudates. No uvular deviation. Moist mucosa_ NECK: Normal ROM, supple, no lymphadenopathy, JVD, or masses_ LUNGS: No distress, speaks in full sentences, minimal bibasilar rales HEART: Regular rate and rhythm, normal S1 and S2, no murmurs appreciated, peripheral pulses normal and equal bilaterally._ ABDOMEN: Soft, obese, nontender, normoactive bowel sounds. No guarding, no rebound. No masses_ : Scrotal swelling without testicular tenderness bilaterally. EXTREMITIES: Multiple slow healing wounds in bilateral soles of feet. 4+ pitting edema bilateral lower extremities. NEUROLOGICAL: Cranial nerves II through XII grossly intact. Normal speech, normal gait, no focal sensorimotor deficits _ SKIN: Warm, Dry, normal turgor, no rashes or lesions noted_ ED Treatment Course - LABORATORY CBC & Chemistry Diagram: 04/28/20 09:30 04/28/20 09:30 Medical Decision Making - Medical Decision Making 04/27/20 09:33 59M hx of DM, asthma, ?CHF, sent in by PCP for admission. Has had scrotal swelling for the past several months, went to PCP for cardiac clearance for scrotal surgery. Taking Lasix 80 mg QD but has not seen relief of lower extremity swelling or CHF. Sent in for admission and further work up. -cbc, cmp -ekg, trop, cxr -bnp 04/27/20 10:12 CXR shows cardiomegaly, otherwise negative for acute intrathoracic pathology. 04/27/20 12:15 EKG shows 77 bpm, NSR, no axis deviation, no ST elevation/depression, QTc 439, VT 152. Labs reviewed. Laboratory Results - last 24 hr 04/27/20 04/27/20 04/27/20 09:55 09:55 11:15 WBC 7.3 RBC 3.52 L Hgb 10.7 L Hct 32.4 L MCV 91.9 MCH 30.3 MCHC 32.9 RDW 14.8 Plt Count 239 MPV 9.1 Absolute Neuts (auto) 4.1 Neutrophils % 56.0 Lymphocytes % 29.1 Monocytes % 8.9 Eosinophils % 5.8 H Basophils % 0.2 Nucleated RBC % 0 Sodium 139 140 Potassium 6.2 H* 4.6 Chloride 105 104 Carbon Dioxide 30 33 H Anion Gap 4 L 4 L BUN 48.7 H 48.1 H Creatinine 4.1 H 4.0 H Est GFR (CKD-EPI)AfAm 17.26 17.79 Est GFR (CKD-EPI)NonAf 14.90 15.35 Random Glucose 85 74 Calcium 7.9 L 8.2 L Total Bilirubin 0.4 AST 88 H ALT 34 Alkaline Phosphatase 80 Creatine Kinase 3180 H Creatine Kinase Index 0.3 CK-MB (CK-2) 11.3 H Troponin I < 0.02 B-Natriuretic Peptide 352.3 H Total Protein 8.1 Albumin 2.5 L 04/27/20 12:18 D/w Dr. Perez who accepts the patient for admission and requests nephro consult. Discharge - Discharge Information Problems reviewed: Yes Clinical Impression/Diagnosis: Lymphedema, Scrotal swelling Condition: Guarded - Admission Yes - Follow up/Referral - Patient Discharge Instructions - Post Discharge Activity
[2020-04-27 10:18] LABS: BASO % 0.2 % (0-2.0); EOS % 5.8 % (0-4.5); HEMATOCRIT 32.4 % (35.4-49); HEMOGLOBIN 10.7 GM/dL (11.7-16.9); LYMPH % 29.1 % (8-40); MCH 30.3 pg (25.7-33.7); MCHC 32.9 g/dl (32.0-35.9); MEAN CELL VOLUME 91.9 fl (80-96); MEAN PLT VOLUME 9.1 fl (7.5-11.1); MONO % 8.9 % (3.8-10.2); PLATELET COUNT 239 K/MM3 (134-434); RBC 3.52 M/mm3 (4.00-5.60); RDW 14.8 % (11.9-15.9); WHITE BLOOD COUNT 7.3 K/mm3 (4.0-10.0)
[2020-04-27 10:50] LABS: ALBUMIN 2.5 g/dl (3.4-5.0); ALK PHOS 80 U/L (45-117); BILIRUBIN,TOTAL 0.4 mg/dL (0.2-1); BLOOD UREA NITROGEN 48.7 mg/dL (7-18); CALCIUM 7.9 mg/dL (8.5-10.1); CHLORIDE 105 mmol/L (98-107); CO2 30 mmol/L (21-32); CREATININE 4.1 mg/dL (0.55-1.3); GLUCOSE,RANDOM 85 mg/dL (74-106); N-TERMINAL BNP 352.3 pg/ml (5-125); SGOT/AST 88 U/L (15-37); SGPT/ALT 34 U/L (13-61); SODIUM 139 mmol/L (136-145); TOT PROT 8.1 g/dl (6.4-8.2)
[2020-04-27 10:59] LABS: ANION GAP 4 MMOL/L (8-16)
[2020-04-27 11:02] LABS: POTASSIUM 6.2 mmol/L (3.5-5.1)
--- NOTE | 2020-04-27 11:15 | EKG ---
Test Reason : Blood Pressure : / mmHG Vent. Rate : 077 BPM Atrial Rate : 077 BPM P-R Int : 152 ms QRS Dur : 092 ms QT Int : 388 ms P-R-T Axes : 056 -03 070 degrees QTc Int : 439 ms NORMAL SINUS RHYTHM NORMAL ECG WHEN COMPARED WITH ECG OF 17-APR-2020 12:41, NO SIGNIFICANT CHANGE WAS FOUND Confirmed by ANA STOKES MD ([id number]) on 04/27/2020 11:14:58 AM Referred By: Confirmed By:ANA STOKES MD
--- NOTE | 2020-04-27 12:02 | PDOC ---
Documentation entered by Poppy Jensen SCRIBE, acting as scribe for Arian Franklin MD. Arian Franklin MD: This documentation has been prepared by the scribe, Poppy Jensen SCRIBE, under my direction and personally reviewed by me in its entirety. I confirm that the documentation accurately reflects all work, treatment, procedures, and medical decision making performed by me. Attending Attestation - Resident Resident Name: Edgard Lee - ED Attending Attestation I have performed the following: I have examined & evaluated the patient, The case was reviewed & discussed with the resident, I agree w/resident's findings & plan, Exceptions are as noted - HPI HPI: 04/27/20 10:57 The patient is a 59 year old male with past medical history significant for HTN, CHF, IDDM was sent to the emergency department by Dr. Perez for worsening edema and weight gain. The patient was seen at the ED on 04/17 for a foot laceration s/p a fall. The laceration was sutured by Podiatry. During the visit, the patient was noted to be in possible fluid overload and was suggested admission, however, due to family matters he AMAed. The patient reports associated symptoms of orthopnea. Per aide, the pt has appeared more dyspneic and swollen than usual Allergies:NKDA PCP: Gee Cummings 04/27/20 11:24 - Physicial Exam PE: 04/27/20 11:22 GENERAL: The patient is awake, alert, Nontoxic - in no acute distress. HEAD: Normocephalic, atraumatic. EYES: extraocular movements intact, sclera anicteric, conjunctiva clear. ENT: Normal voice, Moist mucous membranes. NECK: Normal range of motion, supple LUNGS: Breath sounds equal, clear to auscultation bilaterally. No wheezes, no rhonchi, no rales. HEART: Regular rate and rhythm, normal S1 and S2 without murmur, rub or gallop. ABDOMEN: Soft, nontender, No guarding, no rebound. No CVA tenderness EXTREMITIES: Normal range of motion, significant dependent edema in the lower extremities/scrotum, wound closed with sutures on the plantar aspect of the fourth and the fifth digit right foot without significant erythema, drainage, induration, NEUROLOGICAL: No facial assymetry, Normal speech, moving all 4 extremities spontaneously and symmetrically PSYCH: Normal mood, normal affect. SKIN: Warm, Dry, normal turgor, - Medical Decision Making 04/27/20 12:01 pts labs reviewed ckd, but labs worsre than baseline, possibly due to lasix use Heart Score/ECG Review - ECG Impressions Comment:: 04/27/20 11:24 Twelve-lead EKG was performed and reviewed by me. There is normal sinus rhythm with a normal rate. Rate of 77 The axis is normal. The intervals are normal. There is normal R wave progression There are no ST or T wave abnormalities. Impression: Normal twelve-lead EKG Discharge - Discharge Information Problems reviewed: Yes Clinical Impression/Diagnosis: Lymphedema, Scrotal swelling Condition: Guarded - Follow up/Referral - Patient Discharge Instructions - Post Discharge Activity
[2020-04-27 12:10] LABS: BLOOD UREA NITROGEN 48.1 mg/dL (7-18); CALCIUM 8.2 mg/dL (8.5-10.1); POTASSIUM 4.6 mmol/L (3.5-5.1)
--- NOTE | 2020-04-27 14:25 | CON.NEP ---
Consult Consult Specialty:: Nephrology Referred by:: ED Reason for Consultation:: CKD with hyperkalemia - History of Present Illness Chief Complaint: Swelling History of Present Illness: This is a 59 year old male with history of CKD stage 4, hypertension, CHF, IDDM who presented with complaints of lower leg swelling x several weeks and noted to have K of 6 and Cr of 4. Seen and examined at the bedside. Reports making urine but it is coming out slower. Denies any NSAID use. + high salt diet. Was taking Lasix 80mg PO daily at home. No flank pain. + SOB, orthopnea. No hematuria. - History Source History Provided By: Patient - Past Medical History Cardio/Vascular: Yes: HTN Endocrine: Yes: Diabetes Mellitus - Alcohol/Substance Use Hx Alcohol Use: No - Smoking History Smoking history: Never smoked Have you smoked in the past 12 months: No Aproximately how many cigarettes per day: 0 If you are a former smoker, when did you quit?: 3 YRS Home Medications - Allergies Allergies/Adverse Reactions: Allergies Allergy/AdvReac Type Severity Reaction Status Date / Time No Known Allergies Allergy Verified 04/27/20 08:53 - Home Medications Home Medications: Ambulatory Orders Sitagliptin Phosphate [Januvia -] 100 mg PO DAILY@0700 #0 ud 08/08/16 Glipizide 5 mg PO DAILY 05/28/17 Insulin Glargine,Hum.rec.anlog [Lantus Solostar PEN (NF)] 10 units SQ BID 05/28/17 Levothyroxine [Synthroid -] 125 mcg PO DAILY@0700 05/28/17 Losartan Potassium [Cozaar -] 100 mg PO DAILY 05/28/17 Cephalexin [Keflex] 500 mg PO BID 7 Days #14 capsule 04/17/20 Furosemide [Lasix -] 80 mg PO DAILY 04/24/20 Amlodipine Besylate [Norvasc -] 10 mg PO DAILY 04/27/20 Atorvastatin Ca [Lipitor] 20 mg PO HS 04/27/20 Multivitamin/Iron/Folic Acid [Centrum Adults Tablet] 1 each PO DAILY 04/27/20 Nifedipine [Nifedipine ER] 60 mg PO DAILY 04/27/20 Vitamin A 10,000 unit PO DAILY 04/27/20 Family Medical History Family History: Unremarkable Review of Systems - Review of Systems Constitutional: reports: No Symptoms Eyes: reports: No Symptoms HENT: reports: No Symptoms Neck: reports: No Symptoms Cardiovascular: reports: Edema, Shortness of Breath. denies: Chest Pain, Palpitations Respiratory: reports: Orthopnea, SOB, SOB on Exertion. denies: Hemoptysis, Wheezing Gastrointestinal: denies: Abdominal Pain, Constipation, Diarrhea Genitourinary: reports: Frequency, Testicular Swelling, Urgency Neurological: reports: No Symptoms Nephrology Consult - Height Height: 5 ft 4 in - Weight Weight: 145.15 kg - BMI Body Mass Index (BMI): 54.9 - Lab Results CBC,BMP: CBC, BMP 04/27/20 09:55 04/27/20 11:15 Anion Gap: Anion Gap Anion Gap 4 MMOL/L (8-16) L 04/27/20 11:15 - Imaging Chest X-ray: Report Reviewed - Physical Examination Vital Signs: Vital Signs Temperature 98.4 F 04/27/20 08:51 Pulse Rate 81 04/27/20 08:51 Respiratory Rate 21 H 04/27/20 08:51 Blood Pressure 135/62 04/27/20 08:51 O2 Sat by Pulse Oximetry (%) 95 04/27/20 10:09 Constitutional: Yes: No Distress, Calm Eyes: Yes: Conjunctiva Clear HENT: Yes: Atraumatic Neck: Yes: Supple Cardiovascular: Yes: Regular Rate and Rhythm Respiratory: Yes: Regular, Diminished, On Nasal O2, Rales, SOB Gastrointestinal: Yes: Soft, Distention. No: Tenderness Renal/: No: Bladder Distention, CVA Tenderness - Left, CVA Tenderness - Right, Paula Present Extremities: No: Cold, Cool, Cyanosis Edema: Yes Edema: LLE: 3+, RLE: 3+ Neurological: Yes: Alert, Oriented Assessment/Plan 59 year old male with history of CKD stage 4, hypertension, CHF, IDDM who presented with complaints of lower leg swelling x several weeks and noted to have K of 6 and Cr of 4. 1. CHF/Volume overload 2. CKD stage 4 3. Hypertension 4. Hyperkalemia 5. IDDM 6. Elevated CK levels Renal function stable from the last visit. Hyperkalemia improved with medical management. No emergent indication for renal replacement therapy Start Lasix 80mg IV BID and trend daily weights Renal diet. no LEENA/ARB given low eGFR Trend renal function and electrolytes daily Trend CK to normal Cardiology follow up Thank you will follow Deny Sousa DO
[2020-04-27] MEDS ORDERED: FUROSEMIDE 40 MG/4 ML INJECTABLE VIAL ONE (16:48)
[2020-04-27] MEDS: FUROSEMIDE 100 MG/10 ML INJECTABLE VIAL IVPB SCH (16:52)
[2020-04-28] MEDS: FUROSEMIDE 100 MG/10 ML INJECTABLE VIAL IVPB SCH ×2 (06:44→14:24)
[2020-04-28] MEDS: LEVOTHYROXINE NA 125 MCG TABLET (FP) PO SCH (06:50)
--- NOTE | 2020-04-28 10:12 | HP ---
Admitting History and Physical - Primary Care Physician PCP: Gee Perez - Admission Chief Complaint: Worsening lower extremity swelling History of Present Illness: 59 year old male with history of CKD stage 4, hypertension, CHF, type 2 diabetes mellitus ,who presented with complaints of lower leg swelling x several weeks and noted to have K of 6 and Cr of 4. Seen and examined at the bedside. Reports making urine but it is coming out slower. Denies any NSAID use. + high salt diet. Was taking Lasix 80mg PO daily at home. No flank pain. + SOB, orthopnea. No hematuria. History Source: Patient - Past Medical History Cardiovascular: Yes: HTN Endocrine: Yes: Diabetes Mellitus - Smoking History Smoking history: Never smoked Have you smoked in the past 12 months: No Aproximately how many cigarettes per day: 0 If you are a former smoker, when did you quit?: 3 YRS - Alcohol/Substance Use Hx Alcohol Use: No Home Medications - Allergies Allergies/Adverse Reactions: Allergies Allergy/AdvReac Type Severity Reaction Status Date / Time No Known Allergies Allergy Verified 04/27/20 08:53 - Home Medications Home Medications: Ambulatory Orders Sitagliptin Phosphate [Januvia -] 100 mg PO DAILY@0700 #0 ud 08/08/16 Glipizide 5 mg PO DAILY 05/28/17 Insulin Glargine,Hum.rec.anlog [Lantus Solostar PEN (NF)] 10 units SQ BID 05/28/17 Levothyroxine [Synthroid -] 125 mcg PO DAILY@0700 05/28/17 Losartan Potassium [Cozaar -] 100 mg PO DAILY 05/28/17 Cephalexin [Keflex] 500 mg PO BID 7 Days #14 capsule 04/17/20 Furosemide [Lasix -] 80 mg PO DAILY 04/24/20 Amlodipine Besylate [Norvasc -] 10 mg PO DAILY 04/27/20 Atorvastatin Ca [Lipitor] 20 mg PO HS 04/27/20 Multivitamin/Iron/Folic Acid [Centrum Adults Tablet] 1 each PO DAILY 04/27/20 Nifedipine [Nifedipine ER] 60 mg PO DAILY 04/27/20 Vitamin A 10,000 unit PO DAILY 04/27/20 Family Medical History Family History: Unremarkable Review of Systems - Review of Systems Constitutional: denies: Chills, Diaphoresis, Lethargy Eyes: denies: Blind Spots, Blurred Vision, Double Vision, Eye Pain HENT: denies: Difficult Swallowing, Ear Discharge Neck: denies: Decreased ROM, Lumps, Pain on Movement Cardiovascular: reports: Edema, Shortness of Breath. denies: Chest Pain Respiratory: reports: Exercise Intolerance, SOB on Exertion. denies: Cough Gastrointestinal: denies: Abdominal Pain, Bloating, Constipation Genitourinary: denies: Burning, Discharge, Dysuria, Flank Pain, Frequency Musculoskeletal: denies: Back Pain, Crepitus, Decreased ROM Integumentary: denies: Blister, Bruising, Change in Color, Eczema Physical Examination Vital Signs: Vital Signs Temperature 98.1 F 04/28/20 05:00 Pulse Rate 77 04/28/20 05:00 Respiratory Rate 04/28/20 05:00 Blood Pressure 128/61 04/28/20 05:00 O2 Sat by Pulse Oximetry (%) 96 04/28/20 05:00 General: Elderly woman, comfortable, not in distress HEENT mucous membranes moist, no anemia, no jaundice, PERRLA, no nystagmus Neck: No JVD, supple, no bruit, thyroid palpably normal, normal carotid pulsations. Chest: Nontender, bilateral basal rales. CVS: S1-S2 regular no murmur/gallop/rub Abdomen: Nondistended, soft, bowel sounds present. 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: AO X3 , no gross motor sensory deficit Labs: CBC, BMP 04/27/20 09:55 04/27/20 11:15 Imaging - Results Chest X-ray: Report Reviewed (No pulmonary congestion) EKG: Report Reviewed (No acute ST-T) Problem List - Problems (1) CKD (chronic kidney disease) Assessment/Plan: Patient is a known case of CKD stage IV presented with worsening renal function and edema, evaluated by halal meat packer on IV Lasix Code(s): N18.9 - CHRONIC KIDNEY DISEASE, UNSPECIFIED Qualifiers: Chronic kidney disease stage: stage 4 (severe) Qualified Code(s): N18.4 - C hronic kidney disease, stage 4 (severe) (2) HTN (hypertension) Assessment/Plan: Well-controlled will hold lisinopril continue monitor Problems reviewed: Yes Code(s): I10 - ESSENTIAL (PRIMARY) HYPERTENSION (3) Fluid overload Assessment/Plan: Continue intravenous Lasix, input output, daily weight, Problems reviewed: Yes Code(s): E87.70 - FLUID OVERLOAD, UNSPECIFIED Qualifiers: Hypervolemia type: unspecified Qualified Code(s): E87.70 - Fluid overload, unspecified (4) T2DM (type 2 diabetes mellitus) Assessment/Plan: Fingersticks are well controlled continue Accu-Cheks and correction dose insulin Januvia Problems reviewed: Yes Code(s): E11.9 - TYPE 2 DIABETES MELLITUS WITHOUT COMPLICATIONS (5) Hypothyroid Assessment/Plan: Continue levothyroxine follow-up TSH Problems reviewed: Yes Code(s): E03.9 - HYPOTHYROIDISM, UNSPECIFIED (6) Morbid obesity with BMI of 60.0-69.9, adult Code(s): E66.01 - MORBID (SEVERE) OBESITY DUE TO EXCESS CALORIES; Z68.44 - BODY MASS INDEX (BMI) 60.0-69.9, ADULT (7) Morbid obesity with BMI of 50.0-59.9, adult Assessment/Plan: Weight reduction as an outpatient possibility of LIZANDRO causing right-sided heart failure and lower extremity edema will consider sleep study. Problems reviewed: Yes Code(s): E66.01 - MORBID (SEVERE) OBESITY DUE TO EXCESS CALORIES; Z68.43 - BODY MASS INDEX (BMI) 50.0-59.9, ADULT Assessment/Plan Active Medications Furosemide (Lasix Injection -) 80 mg IVPB BID@0600,1400 [facility] Last Admin: 04/28/20 06:44 Dose: 80 mg Documented by: Levothyroxine Sodium (Synthroid -) 125 mcg PO DAILY@0700 [facility] Last Admin: 04/28/20 06:50 Dose: 125 mcg Documented by:
[2020-04-28 10:37] LABS: HEMATOCRIT 31.9 % (35.4-49); HEMOGLOBIN 10.4 GM/dL (11.7-16.9); MCH 30.4 pg (25.7-33.7); MCHC 32.5 g/dl (32.0-35.9); MEAN CELL VOLUME 93.4 fl (80-96); PLATELET COUNT 230 K/MM3 (134-434); RBC 3.41 M/mm3 (4.00-5.60); RDW 14.5 % (11.9-15.9)
[2020-04-28 11:04] LABS: ALBUMIN 2.4 g/dl (3.4-5.0); BILIRUBIN,TOTAL 0.2 mg/dL (0.2-1); BLOOD UREA NITROGEN 49.7 mg/dL (7-18); CALCIUM 8.1 mg/dL (8.5-10.1); CREATININE 4.1 mg/dL (0.55-1.3); PHOSPHOROUS 5.7 mg/dL (2.5-4.9); POTASSIUM 4.8 mmol/L (3.5-5.1); TOT PROT 7.2 g/dl (6.4-8.2)
[2020-04-28] MEDS: INSULIN SLIDING SCALE (NOVOLOG) 1 VIAL SQ SCH ×2 (12:24→15:57)
--- NOTE | 2020-04-28 14:42 | PN ---
Progress Note, Physician History of Present Illness: Pt seen and examined at bedside. He is awake and alert. He does not feel that his lower ext edema is much better. - Current Medication List Current Medications: Active Medications Amlodipine Besylate (Norvasc -) 10 mg PO DAILY JOSE ANGEL Atorvastatin Calcium (Lipitor -) 20 mg PO HS JOSE ANGEL Furosemide (Lasix Injection -) 80 mg IVPB BID@0600,1400 [facility] Last Admin: 04/28/20 14:24 Dose: 80 mg Documented by: Insulin Aspart (Novolog Vial Sliding Scale -) 1 vial SQ TIDAC [facility]; Protocol Last Admin: 04/28/20 12:24 Dose: 2 units Documented by: Levothyroxine Sodium (Synthroid -) 125 mcg PO DAILY@0700 [facility] Last Admin: 04/28/20 06:50 Dose: 125 mcg Documented by: Multivitamins/Minerals (Theragran-M) 1 each PO DAILY [facility] Sitagliptin Phosphate (Januvia -) 100 mg PO DAILY@0700 [facility] - Objective Vital Signs: Vital Signs Temperature 97.8 F 04/28/20 09:00 Pulse Rate 76 04/28/20 09:00 Respiratory Rate 22 H 04/28/20 09:00 Blood Pressure 120/71 04/28/20 09:00 O2 Sat by Pulse Oximetry (%) 95 04/28/20 09:00 Constitutional: Yes: Calm Eyes: Yes: Conjunctiva Clear HENT: Yes: Atraumatic Neck: Yes: Supple Cardiovascular: Yes: S1, S2 Respiratory: Yes: CTA Bilaterally Gastrointestinal: Yes: Soft Genitourinary: Yes: WNL Edema: Yes Edema: LLE: 2+, RLE: 2+ Neurological: Yes: Oriented Psychiatric: Yes: Oriented Labs: CBC, BMP 04/28/20 09:30 04/28/20 09:30 Assessment/Plan Current Medications Generic Name Dose Route Start Last Admin Trade Name Freq PRN Reason Stop Dose Admin Amlodipine Besylate 10 mg 04/29/20 10:00 Norvasc - PO DAILY JOSE ANGEL Atorvastatin Calcium 20 mg 04/28/20 22:00 Lipitor - PO HS JOSE ANGEL Furosemide 80 mg 04/27/20 14:32 04/28/20 14:24 Lasix Injection - IVPB 80 mg BID@0600,1400 [facility] Administration Insulin Aspart 1 vial 04/28/20 11:00 09/12/20 12:24 Novolog Vial Sliding Scale - SQ 2 units TIDAC JOSE ANGEL Administration Protocol Levothyroxine Sodium 125 mcg 04/28/20 07:00 04/28/20 06:50 Synthroid - PO 125 mcg DAILY@0700 JOSE ANGEL Administration Multivitamins/Minerals 1 each 04/29/20 10:00 Theragran-M PO DAILY JOSE ANGEL Sitagliptin Phosphate 100 mg 04/29/20 07:00 Januvia - PO DAILY@0700 [facility] 1. CHF/Volume overload 2. CKD stage 4 3. Hypertension 4. Hyperkalemia 5. IDDM 6. 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
[2020-04-28] MEDS: CALCIUM ACETATE 667 MG CAPSULE (FP) PO SCH (16:59)
[2020-04-28] MEDS ORDERED: ATORVASTATIN CA 20 MG TABLET (FP) PO SCH (22:00)
[2020-04-29] MEDS ORDERED: PT OWN MED DRAWER 7, Y5N ONE (05:25)
[2020-04-29] MEDS: FUROSEMIDE 100 MG/10 ML INJECTABLE VIAL IVPB SCH ×2 (05:29→13:08)
[2020-04-29] MEDS: LEVOTHYROXINE NA 125 MCG TABLET (FP) PO SCH (06:10)
[2020-04-29] MEDS: INSULIN SLIDING SCALE (NOVOLOG) 1 VIAL SQ SCH ×3 (06:11→16:25)
[2020-04-29] MEDS: MULTIVITAMINS THER W-MINERALS COMBO TABLET (FP) PO SCH (09:03)
[2020-04-29] MEDS: CALCIUM ACETATE 667 MG CAPSULE (FP) PO SCH ×3 (09:03→16:38)
[2020-04-29] MEDS: amLODIPine BESYLATE 5 MG TABLET (FP) PO SCH (09:07)
--- NOTE | 2020-04-29 12:44 | PN ---
Progress Note, Physician History of Present Illness: Pt seen and examined at bedside. He still complains of edema. - Current Medication List Current Medications: Active Medications Amlodipine Besylate (Norvasc -) 10 mg PO DAILY [facility] Last Admin: 04/29/20 09:07 Dose: 10 mg Documented by: Calcium Acetate (Phoslo -) 667 mg PO TIDCM [facility] Last Admin: 04/29/20 11:42 Dose: 667 mg Documented by: Furosemide (Lasix Injection -) 80 mg IVPB BID@0600,1400 [facility] Last Admin: 04/29/20 05:29 Dose: 80 mg Documented by: Insulin Aspart (Novolog Vial Sliding Scale -) 1 vial SQ TIDAC [facility]; Protocol Last Admin: 04/29/20 11:41 Dose: Not Given Documented by: Levothyroxine Sodium (Synthroid -) 125 mcg PO DAILY@0700 [facility] Last Admin: 04/29/20 06:10 Dose: 125 mcg Documented by: Multivitamins/Minerals (Theragran-M) 1 each PO DAILY [facility] Last Admin: 04/29/20 09:03 Dose: 1 each Documented by: Sitagliptin Phosphate (Januvia -) 100 mg PO DAILY@0700 [facility] - Objective Vital Signs: Vital Signs Temperature 98.5 F 04/29/20 09:00 Pulse Rate 78 04/29/20 09:00 Respiratory Rate 20 04/29/20 09:00 Blood Pressure 156/90 04/29/20 09:00 O2 Sat by Pulse Oximetry (%) 95 04/29/20 09:00 Constitutional: Yes: Calm Eyes: Yes: Conjunctiva Clear HENT: Yes: Atraumatic Neck: Yes: Supple Cardiovascular: Yes: S1, S2 Respiratory: Yes: On Nasal O2 Gastrointestinal: Yes: Soft, Abdomen, Obese Genitourinary: Yes: WNL Edema: Yes Edema: LLE: 2+, RLE: 2+ Neurological: Yes: Oriented Psychiatric: Yes: Oriented Labs: CBC, BMP 04/28/20 09:30 04/28/20 09:30 Assessment/Plan Current Medications Generic Name Dose Route Start Last Admin Trade Name Freq PRN Reason Stop Dose Admin Amlodipine Besylate 10 mg 04/29/20 10:00 04/29/20 09:07 Norvasc - PO 10 mg DAILY [facility] Administration Calcium Acetate 667 mg 04/28/20 17:30 04/29/20 11:42 Phoslo - PO 667 mg TIDCM JO[facility] ANGEL Administration Furosemide 80 mg 04/27/20 14:32 04/29/20 05:29 Lasix Injection - IVPB 80 mg BID@0600,1400 [facility] Administration Insulin Aspart 1 vial 04/28/20 11:00 04/29/20 11:41 Novolog Vial Sliding Scale - SQ Not Given TIDAC [facility] Protocol Levothyroxine Sodium 125 mcg 04/28/20 07:00 04/29/20 06:10 Synthroid - PO 125 mcg DAILY@0700 [facility]GEL Administration Multivitamins/Minerals 1 each 04/29/20 10:00 04/29/20 09:03 Theragran-M PO 1 each DAILY JOSE ANGEL Administration Sitagliptin Phosphate 100 mg 04/29/20 07:00 Januvia - PO DAILY@0700 [facility] 1. CHF/Volume overload 2. CKD stage 4 3. Hypertension 4. Hyperkalemia 5. IDDM 6. Elevated CK levels Plan - no new labs - check cmp and cpk - cont lasix - called pulm to evaluate for apnea - monitor volume status - discussed with medical team - trend cpk levels, volume overload limits fluid use - avoid margaret inhibition or arbs in the setting of advanced ckd - recommend weights loss - renal diet - phos binders - no indication for hd at the moment
[2020-04-29 13:07] VITALS: BMI 52.8
[2020-04-29 13:19] LABS: ALBUMIN 2.4 g/dl (3.4-5.0); BILIRUBIN,TOTAL 0.2 mg/dL (0.2-1); BLOOD UREA NITROGEN 48.7 mg/dL (7-18); CALCIUM 8.2 mg/dL (8.5-10.1); CREATININE 4.2 mg/dL (0.55-1.3); PHOSPHOROUS 5.4 mg/dL (2.5-4.9); POTASSIUM 4.6 mmol/L (3.5-5.1); TOT PROT 7.6 g/dl (6.4-8.2)
--- NOTE | 2020-04-29 14:13 | CON.PULM ---
Consult Consult Specialty:: PULM/SLEEP Referred by:: Reason for Consultation:: OSAS / SOB - History of Present Illness Chief Complaint: Swelling History of Present Illness: 59 M, non-smoker, CKD stage 4, hypertension, CHF, and diabetes mellitus. Admitted via the ER due to bilateral lower leg swelling for several weeks. He does report occasional snoring but sleeps by himself. No history of witnessed apneas. He does occasionally wake himself up at night due to "breathing" trouble. - History Source History Provided By: Patient Limitations to Obtaining History: Poor Historian - Past Medical History Cardio/Vascular: Yes: HTN Pulmonary: Yes: Bronchitis. No: Asthma, Cancer, COPD, O2 Dependent, Pneumonia, Previously Intubated, Pulmonary Embolus, Pulmonary Fibrosis Endocrine: Yes: Diabetes Mellitus - Alcohol/Substance Use Hx Alcohol Use: No - Smoking History Smoking history: Never smoked Have you smoked in the past 12 months: No Aproximately how many cigarettes per day: 0 If you are a former smoker, when did you quit?: 3 YRS Home Medications - Allergies Allergies/Adverse Reactions: Allergies Allergy/AdvReac Type Severity Reaction Status Date / Time No Known Allergies Allergy Verified 04/27/20 08:53 - Home Medications Home Medications: Ambulatory Orders Sitagliptin Phosphate [Januvia -] 100 mg PO DAILY@0700 #0 ud 08/08/16 Glipizide 5 mg PO DAILY 05/28/17 Insulin Glargine,Hum.rec.anlog [Lantus Solostar PEN (NF)] 10 units SQ BID 05/28/17 Levothyroxine [Synthroid -] 125 mcg PO DAILY@0700 05/28/17 Losartan Potassium [Cozaar -] 100 mg PO DAILY 05/28/17 Cephalexin [Keflex] 500 mg PO BID 7 Days #14 capsule 04/17/20 Furosemide [Lasix -] 80 mg PO DAILY 04/24/20 Amlodipine Besylate [Norvasc -] 10 mg PO DAILY 04/27/20 Atorvastatin Ca [Lipitor] 20 mg PO HS 04/27/20 Multivitamin/Iron/Folic Acid [Centrum Adults Tablet] 1 each PO DAILY 04/27/20 Nifedipine [Nifedipine ER] 60 mg PO DAILY 04/27/20 Vitamin A 10,000 unit PO DAILY 04/27/20 Family Medical History Family History: Unremarkable Review of Systems - Review of Systems Constitutional: denies: Chills, Fever, Malaise, Night Sweats Eyes: reports: No Symptoms, Recent Change in Vision HENT: reports: Ringing in Ears Cardiovascular: reports: Edema, Shortness of Breath. denies: Chest Pain, Palpitations Respiratory: reports: Orthopnea, Snoring, SOB, SOB on Exertion. denies: Cough, Exercise Intolerance, Hemoptysis, PND, Wheezing Gastrointestinal: reports: No Symptoms Genitourinary: reports: No Symptoms Breasts: reports: No Symptoms Reported Musculoskeletal: reports: Back Pain Integumentary: reports: No Symptoms Neurological: reports: No Symptoms Endocrine: reports: No Symptoms Hematology/Lymphatic: reports: No Symptoms Psychiatric: reports: No Symptoms Physical Exam Vital Sings: Vital Signs Temperature 98.5 F 04/29/20 09:00 Pulse Rate 78 04/29/20 09:00 Respiratory Rate 20 04/29/20 09:00 Blood Pressure 156/90 04/29/20 09:00 O2 Sat by Pulse Oximetry (%) 95 04/29/20 09:00 Constitutional: Yes: No Distress, Obese Eyes: Yes: Conjunctiva Clear, EOM Intact HENT: Yes: Atraumatic, Normocephalic, Other (Macroglossia ) Neck: Yes: Supple, Trachea Midline Cardiovascular: Yes: Regular Rate and Rhythm Respiratory: Yes: Regular, Diminished, On Nasal O2, SOB on Exertion. No: Accessory Muscle Use, Rales, Rhonchi, SOB, Stridor, Tachypnea, Wheezes ...Inspection: Yes: WNL ...Clubbing: No Gastrointestinal: Yes: Normal Bowel Sounds, Soft, Abdomen, Obese Musculoskeletal: Yes: WNL Extremities: Yes: WNL Edema: Yes Peripheral Pulses WNL: Yes Integumentary: Yes: WNL Neurological: Yes: WNL, Alert, Oriented ...Motor Strength: WNL Psychiatric: Yes: WNL, Alert, Oriented Labs: CBC, BMP 04/29/20 12:16 04/29/20 12:16 Imaging - Results Chest X-ray: Report Reviewed, Image Reviewed Problem List - Problems (1) Hypothyroid Code(s): E03.9 - HYPOTHYROIDISM, UNSPECIFIED (2) Lymphedema Code(s): I89.0 - LYMPHEDEMA, NOT ELSEWHERE CLASSIFIED (3) Morbid obesity with BMI of 50.0-59.9, adult Code(s): E66.01 - MORBID (SEVERE) OBESITY DUE TO EXCESS CALORIES; Z68.43 - BODY MASS INDEX (BMI) 50.0-59.9, ADULT (4) Scrotal swelling Code(s): N50.89 - OTHER SPECIFIED DISORDERS OF THE MALE GENITAL ORGANS (5) HAYLEY (acute kidney injury) Code(s): N17.9 - ACUTE KIDNEY FAILURE, UNSPECIFIED (6) CKD (chronic kidney disease) Code(s): N18.9 - CHRONIC KIDNEY DISEASE, UNSPECIFIED Qualifiers: Chronic kidney disease stage: stage 4 (severe) Qualified Code(s): N18.4 - Chronic kidney disease, stage 4 (severe) (7) Diabetic foot ulcer Code(s): E11.621 - TYPE 2 DIABETES MELLITUS WITH FOOT ULCER; L97.509 - NON- PRESSURE CHRONIC ULCER OTH PRT UNSP FOOT W UNSP SEVERITY Qualifiers: Diabetic foot ulcer location: midfoot Diabetes mellitus type: type 2 Laterality: left Non-pressure ulcer stage: limited to breakdown of skin Qualified Code(s): E11.621 - Type 2 diabetes mellitus with foot ulcer (8) Diabetic neuropathy Code(s): E11.40 - TYPE 2 DIABETES MELLITUS WITH DIABETIC NEUROPATHY, UNSP (9) Fluid overload Code(s): E87.70 - FLUID OVERLOAD, UNSPECIFIED Qualifiers: Hypervolemia type: unspecified Qualified Code(s): E87.70 - Fluid overload, unspecified (10) HTN (hypertension) Code(s): I10 - ESSENTIAL (PRIMARY) HYPERTENSION (11) T2DM (type 2 diabetes mellitus) Code(s): E11.9 - TYPE 2 DIABETES MELLITUS WITHOUT COMPLICATIONS Assessment/Plan Will need formal sleep testing Lasix Daily weights Follow I & O Supplemental O2 as needed No smoking was discussed Will order empiric NIPPV support Will follow Thank you. Dr Lynn LIZANDRO Screen - LIZANDRO History Previously diagnosed with Sleep Apnea: No If Yes, currently using CPAP to treat your LIZANDRO: No - SNORING Do you snore loudly (enough to be heard thru closed doors)?: Yes - TIRED Do you often feel tired, fatigued, or sleepy during daytime?: Yes - OBSERVED Has anyone observed you stop breathing during your sleep?: No - BLOOD PRESSURE Do you have or are being treated for high blood pressure?: Yes - BMI Answer Y if weight exceeds amount listed for your height: Yes .: HEIGHT & WEIGHT (lbs): 4'10" 167lbs; 4'11" 175 lbs; 5'0" 179lbs;. 5'1" 185lbs; 5'2" 191lbs; 5'3" 197lbs;. 5'4" 204lbs; 5'5" 210lbs; 5'6" 216lbs;. 57" 223lbs; 58" 230lbs; 59" 237lbs;. 510" 243lbs; 511" 250lbs; 6' 258lbs;. 6'1" 265lbs; 6'2" 272lbs; 6'3" 279lbs;. 6'4" 287lbs; 6'5" 295lbs - AGE Is your age over 50 yrs old?: Yes - NECK CIRCUMFERENCE Neck Circumference 40cm: Yes - GENDER Male: Yes - SCORE Total Score: 7 Score Interpretation: High Risk of LIZANDRO .: Interpretation: Score 0-2: Low Risk LIZANDRO. Score 3-4: Intermediate Risk LIZANDRO. Score 5-8: High Risk LIZANDRO
--- NOTE | 2020-04-29 16:26 | PN ---
Progress Note, Physician Chief Complaint: Patient feels improved less leg swelling observed by nurse patient has frequent episodes of excessive sleepiness and apnea. History of Present Illness: 59 years old man history of hypertension, type 2 diabetes mellitus, morbid obesity, CKD stage IV, suspicion for LIZANDRO admitted with worsening lower extremity swelling and shortness of breath, labs shows mildly elevated proBNP nephrology consulted recommended IV Lasix, considering high suspicion of LIZANDRO pulmonary consult called recommended empiric BiPAP at night and work-up for ILZANDRO. - Current Medication List Current Medications: Active Medications Amlodipine Besylate (Norvasc -) 10 mg PO DAILY [facility] Last Admin: 04/29/20 09:07 Dose: 10 mg Documented by: Calcium Acetate (Phoslo -) 667 mg PO TIDCM [facility] Last Admin: 04/29/20 11:42 Dose: 667 mg Documented by: Furosemide (Lasix Injection -) 80 mg IVPB BID@0600,1400 [facility] Last Admin: 04/29/20 13:08 Dose: 80 mg Documented by: Insulin Aspart (Novolog Vial Sliding Scale -) 1 vial SQ TIDAC [facility]; Protocol Last Admin: 04/29/20 11:41 Dose: Not Given Documented by: Levothyroxine Sodium (Synthroid -) 125 mcg PO DAILY@0700 [facility] Last Admin: 04/29/20 06:10 Dose: 125 mcg Documented by: Multivitamins/Minerals (Theragran-M) 1 each PO DAILY [facility] Last Admin: 04/29/20 09:03 Dose: 1 each Documented by: Sitagliptin Phosphate (Januvia -) 100 mg PO DAILY@0700 [facility] - Objective Vital Signs: Vital Signs Temperature 99 F 04/29/20 15:09 Pulse Rate 79 04/29/20 15:09 Respiratory Rate 20 04/29/20 15:09 Blood Pressure 147/55 L 04/29/20 15:09 O2 Sat by Pulse Oximetry (%) 92 L 04/29/20 15:30 General: Elderly woman, comfortable, not in distress HEENT mucous membranes moist, no anemia, no jaundice, PERRLA, no nystagmus Neck: No JVD, supple, no bruit, thyroid palpably normal, normal carotid pulsations. Chest: Nontender, bilateral basal rales. CVS: S1-S2 regular no murmur/gallop/rub Abdomen: Nondistended, soft, bowel sounds present. Extremities: + +edema., No Calf tenderness, pulses present CLINICAL RESEARCH COORDINATOR: AO X3 , no gross motor sensory deficit Labs: CBC, BMP 04/29/20 12:16 04/29/20 12:16 Problem List - Problems (1) CKD (chronic kidney disease) Assessment/Plan: Patient is a known case of CKD stage IV presented with worsening renal function and edema, evaluated by pig breeder on IV Lasix Code(s): N18.9 - CHRONIC KIDNEY DISEASE, UNSPECIFIED Qualifiers: Chronic kidney disease stage: stage 4 (severe) Qualified Code(s): N18.4 - Chronic kidney disease, stage 4 (severe) (2) HTN (hypertension) Assessment/Plan: Well-controlled will hold lisinopril continue monitor Code(s): I10 - ESSENTIAL (PRIMARY) HYPERTENSION (3) Fluid overload Assessment/Plan: Continue intravenous Lasix, input output, daily weight, Code(s): E87.70 - FLUID OVERLOAD, UNSPECIFIED Qualifiers: Hypervolemia type: unspecified Qualified Code(s): E87.70 - Fluid overload, unspecified (4) T2DM (type 2 diabetes mellitus) Assessment/Plan: Fingersticks are well controlled continue Accu-Cheks and correction dose insulin Januvia Code(s): E11.9 - TYPE 2 DIABETES MELLITUS WITHOUT COMPLICATIONS (5) Hypothyroid Assessment/Plan: Continue levothyroxine follow-up TSH Code(s): E03.9 - HYPOTHYROIDISM, UNSPECIFIED (6) Morbid obesity with BMI of 50.0-59.9, adult Assessment/Plan: Weight reduction as an outpatient possibility of LIZANDRO causing right-sided heart failure and lower extremity edema will consider sleep study. Code(s): E66.01 - MORBID (SEVERE) OBESITY DUE TO EXCESS CALORIES; Z68.43 - BODY MASS INDEX (BMI) 50.0-59.9, ADULT (7) LIZANDRO (obstructive sleep apnea) Assessment/Plan: Thick neck large tongue morbidly obesity, frequent episodes of sleepiness and snoring elevated CO2 high suspicion for LIZANDRO score is 7 evaluated by pulmonary consult recommended a trial of BiPAP and work-up for LIZANDRO Problems reviewed: Yes Code(s): G47.33 - OBSTRUCTIVE SLEEP APNEA (ADULT) (PEDIATRIC)
[2020-04-30] MEDS ORDERED: PT OWN MED DRAWER 7, Y5N ONE (03:47)
[2020-04-30] MEDS: FUROSEMIDE 100 MG/10 ML INJECTABLE VIAL IVPB SCH ×2 (05:06→14:48)
[2020-04-30] MEDS: LEVOTHYROXINE NA 125 MCG TABLET (FP) PO SCH (06:04)
[2020-04-30] MEDS: INSULIN SLIDING SCALE (NOVOLOG) 1 VIAL SQ SCH ×3 (06:07→16:29)
[2020-04-30 07:50] LABS: BASO % 0.8 % (0-2.0); HEMOGLOBIN 9.6 GM/dL (11.7-16.9); LYMPH % 31.4 % (8-40); MCHC 32.1 g/dl (32.0-35.9); MEAN CELL VOLUME 93.6 fl (80-96); MEAN PLT VOLUME 8.9 fl (7.5-11.1); MONO % 10.8 % (3.8-10.2); PLATELET COUNT 218 K/MM3 (134-434); RDW 14.2 % (11.9-15.9); WHITE BLOOD COUNT 6.8 K/mm3 (4.0-10.0)
[2020-04-30 08:30] LABS: POTASSIUM 4.4 mmol/L (3.5-5.1)
[2020-04-30 08:46] LABS: ALBUMIN 2.3 g/dl (3.4-5.0); BILIRUBIN,TOTAL 0.7 mg/dL (0.2-1); BLOOD UREA NITROGEN 47.8 mg/dL (7-18); CALCIUM 8.4 mg/dL (8.5-10.1); CREATININE 4.2 mg/dL (0.55-1.3); TOT PROT 7.2 g/dl (6.4-8.2)
--- NOTE | 2020-04-30 09:58 | PN ---
Progress Note, Physician Chief Complaint: C/O shaking hands History of Present Illness: Admitted with fluid retention After getting IV lasix ,he lost 13 lbs - Current Medication List Current Medications: Active Medications Amlodipine Besylate (Norvasc -) 10 mg PO DAILY [facility] [place] Last Admin: 04/29/20 09:07 Dose: 10 mg Documented by: Calcium Acetate (Phoslo -) 667 mg PO TIDCM [facility] [place] Last Admin: 04/29/20 16:38 Dose: 667 mg Documented by: Furosemide (Lasix Injection -) 80 mg IVPB BID@0600,1400 [facility] [place] Last Admin: 04/30/20 05:06 Dose: 80 mg Documented by: Insulin Aspart (Novolog Vial Sliding Scale -) 1 vial SQ TIDAC [facility] [place]; Protocol Last Admin: 04/30/20 06:07 Dose: Not Given Documented by: Levothyroxine Sodium (Synthroid -) 125 mcg PO DAILY@0700 [facility] [place] Last Admin: 04/30/20 06:04 Dose: 125 mcg Documented by: Multivitamins/Minerals (Theragran-M) 1 each PO DAILY [facility] [place] Last Admin: 04/29/20 09:03 Dose: 1 each Documented by: Sitagliptin Phosphate (Januvia -) 100 mg PO DAILY@0700 [facility] [place] - Objective Vital Signs: Vital Signs Temperature 98.5 F 04/30/20 09:31 Pulse Rate 79 04/30/20 09:31 Respiratory Rate 20 04/30/20 09:31 Blood Pressure 150/88 04/30/20 09:31 O2 Sat by Pulse Oximetry (%) 100 04/30/20 09:31 Constitutional: Yes: No Distress Eyes: Yes: WNL HENT: Yes: WNL Neck: Yes: WNL Cardiovascular: Yes: WNL Respiratory: Yes: WNL Gastrointestinal: Yes: WNL ...Rectal Exam: Yes: Deferred Genitourinary: Yes: WNL Breast(s): Yes: WNL Musculoskeletal: Yes: Muscle Weakness Edema: Yes Edema: LLE: 2+, RLE: 2+ Integumentary: Yes: WNL Neurological: Yes: Alert Labs: CBC, BMP 04/30/20 06:35 04/30/20 06:35 Assessment/Plan Continue same trt DC nasal o2
[2020-04-30] MEDS: amLODIPine BESYLATE 5 MG TABLET (FP) PO SCH (10:35)
[2020-04-30] MEDS: CALCIUM ACETATE 667 MG CAPSULE (FP) PO SCH ×3 (10:35→18:35)
[2020-04-30] MEDS: MULTIVITAMINS THER W-MINERALS COMBO TABLET (FP) PO SCH (10:35)
--- NOTE | 2020-04-30 11:59 | PN ---
Progress Note, Physician History of Present Illness: Seen and examined at the bedside awake and alert leg swelling slightly improved no cp, fever, chills, N/V/D making urine scrotum remains swollen - Current Medication List Current Medications: Active Medications Amlodipine Besylate (Norvasc -) 10 mg PO DAILY [facility] Last Admin: 04/30/20 10:35 Dose: 10 mg Documented by: Calcium Acetate (Phoslo -) 667 mg PO TIDCM [facility] Last Admin: 04/30/20 10:35 Dose: 667 mg Documented by: Furosemide (Lasix Injection -) 80 mg IVPB BID@0600,1400 [facility] Last Admin: 04/30/20 05:06 Dose: 80 mg Documented by: Insulin Aspart (Novolog Vial Sliding Scale -) 1 vial SQ TIDAC [facility]; Protocol Last Admin: 04/30/20 11:36 Dose: Not Given Documented by: Levothyroxine Sodium (Synthroid -) 125 mcg PO DAILY@0700 [facility] Last Admin: 04/30/20 06:04 Dose: 125 mcg Documented by: Metolazone (Zaroxolyn -) 2.5 mg PO ONCE ONE Stop: 04/30/20 13:31 Multivitamins/Minerals (Theragran-M) 1 each PO DAILY [facility] Last Admin: 04/30/20 10:35 Dose: 1 each Documented by: Sitagliptin Phosphate (Januvia -) 100 mg PO DAILY@0700 [facility] - Objective Vital Signs: Vital Signs Temperature 98.5 F 04/30/20 09:31 Pulse Rate 79 04/30/20 09:31 Respiratory Rate 20 04/30/20 09:31 Blood Pressure 150/88 04/30/20 09:31 O2 Sat by Pulse Oximetry (%) 100 04/30/20 09:31 Constitutional: Yes: No Distress, Calm HENT: Yes: Atraumatic Neck: Yes: Supple Cardiovascular: Yes: Regular Rate and Rhythm Respiratory: Yes: Regular, Diminished Gastrointestinal: Yes: Soft, Abdomen, Obese. No: Tenderness Extremities: No: Cold, Cool, Cyanosis Edema: Yes Edema: LLE: 2+, RLE: 2+ Neurological: Yes: Alert, Oriented Labs: CBC, BMP 04/30/20 06:35 04/30/20 06:35 Assessment/Plan 59 year old male with history of CKD stage 4, hypertension, CHF, IDDM who presented with complaints of lower leg swelling x several weeks and noted to have K of 6 and Cr of 4. 1. CHF/Volume overload 2. CKD stage 4 3. Hypertension 4. Hyperkalemia 5. IDDM 6. Elevated CK levels Renal function stable. Weights improving with duresis No overt electrolyte abnormalities No emergent indication for renal replacement therapy Continue Lasix 80mg IV BID and trend daily weights. Will give dose of metolazone prior to PM Lasix. Renal diet. no LEENA/ARB given low eGFR Trend renal function and electrolytes daily CK levels improving. Cardiology follow up Thank you will follow Deny Sousa DO
--- NOTE | 2020-04-30 13:19 | PN ---
Progress Note (short form) - Note Progress Note: Resting in NAD on NC O2. Reports using NIPPV overnight but unsure if he felt better with it. No acute events overnight. Intake & Output 04/27/20 04/28/20 04/29/20 04/30/20 23:59 23:59 23:59 23:59 Intake Total 450 100 50 Balance 450 100 50 Weight 320 lb 310 lb 14.4 oz 308 lb 307 lb Last Vital Signs Temp Pulse Resp BP Pulse Ox 98.5 F 79 20 150/88 100 04/30/20 09:31 04/30/20 09:31 04/30/20 09:31 04/30/20 09:31 04/30/20 09:31 Active Medications Amlodipine Besylate (Norvasc -) 10 mg PO DAILY [facility] Last Admin: 04/30/20 10:35 Dose: 10 mg Documented by: Calcium Acetate (Phoslo -) 667 mg PO TIDCM [facility] Last Admin: 04/30/20 12:46 Dose: 667 mg Documented by: Furosemide (Lasix Injection -) 80 mg IVPB BID@0600,1400 [facility] Last Admin: 04/30/20 05:06 Dose: 80 mg Documented by: Insulin Aspart (Novolog Vial Sliding Scale -) 1 vial SQ TIDAC [facility]; Protocol Last Admin: 04/30/20 11:36 Dose: Not Given Documented by: Levothyroxine Sodium (Synthroid -) 125 mcg PO DAILY@0700 [facility] Last Admin: 04/30/20 06:04 Dose: 125 mcg Documented by: Metolazone (Zaroxolyn -) 2.5 mg PO ONCE ONE Stop: 04/30/20 13:31 Multivitamins/Minerals (Theragran-M) 1 each PO DAILY [facility] Last Admin: 04/30/20 10:35 Dose: 1 each Documented by: Sitagliptin Phosphate (Januvia -) 100 mg PO DAILY@0700 [facility] Constitutional: Yes: No Distress, Obese Eyes: Yes: Conjunctiva Clear, EOM Intact HENT: Yes: Atraumatic, Normocephalic, Other (Macroglossia ) Neck: Yes: Supple, Trachea Midline Cardiovascular: Yes: Regular Rate and Rhythm Respiratory: Yes: Regular, Diminished, On Nasal O2, SOB on Exertion. No: Accessory Muscle Use, Rales, Rhonchi, SOB, Stridor, Tachypnea, Wheezes ...Inspection: Yes: WNL ...Clubbing: No Gastrointestinal: Yes: Normal Bowel Sounds, Soft, Abdomen, Obese Musculoskeletal: Yes: WNL Extremities: Yes: WNL Edema: Yes Peripheral Pulses WNL: Yes Integumentary: Yes: WNL Neurological: Yes: WNL, Alert, Oriented ...Motor Strength: WNL Psychiatric: Yes: WNL, Alert, Oriented Labs: CBC, BMP 04/29/20 12:16 04/29/20 12:16 Imaging - Results Chest X-ray: Report Reviewed, Image Reviewed Problem List - Problems (1) Hypothyroid Code(s): E03.9 - HYPOTHYROIDISM, UNSPECIFIED (2) Lymphedema Code(s): I89.0 - LYMPHEDEMA, NOT ELSEWHERE CLASSIFIED (3) Morbid obesity with BMI of 50.0-59.9, adult Code(s): E66.01 - MORBID (SEVERE) OBESITY DUE TO EXCESS CALORIES; Z68.43 - BODY MASS INDEX (BMI) 50.0-59.9, ADULT (4) Scrotal swelling Code(s): N50.89 - OTHER SPECIFIED DISORDERS OF THE MALE GENITAL ORGANS (5) HAYLEY (acute kidney injury) Code(s): N17.9 - ACUTE KIDNEY FAILURE, UNSPECIFIED (6) CKD (chronic kidney disease) Code(s): N18.9 - CHRONIC KIDNEY DISEASE, UNSPECIFIED Qualifiers: Chronic kidney disease stage: stage 4 (severe) Qualified Code(s): N18.4 - Chronic kidney disease, stage 4 (severe) (7) Diabetic foot ulcer Code(s): E11.621 - TYPE 2 DIABETES MELLITUS WITH FOOT ULCER; L97.509 - NON- PRESSURE CHRONIC ULCER OTH PRT UNSP FOOT W UNSP SEVERITY Qualifiers: Diabetic foot ulcer location: midfoot Diabetes mellitus type: type 2 Laterality: left Non-pressure ulcer stage: limited to breakdown of skin Qualified Code(s): E11.621 - Type 2 diabetes mellitus with foot ulcer (8) Diabetic neuropathy Code(s): E11.40 - TYPE 2 DIABETES MELLITUS WITH DIABETIC NEUROPATHY, UNSP (9) Fluid overload Code(s): E87.70 - FLUID OVERLOAD, UNSPECIFIED Qualifiers: Hypervolemia type: unspecified Qualified Code(s): E87.70 - Fluid overload, unspecified (10) HTN (hypertension) Code(s): I10 - ESSENTIAL (PRIMARY) HYPERTENSION (11) T2DM (type 2 diabetes mellitus) Code(s): E11.9 - TYPE 2 DIABETES MELLITUS WITHOUT COMPLICATIONS Assessment/Plan Will need formal sleep testing after DC to be arranged by RT Za Daily weights Follow I & O Supplemental O2 as needed No smoking was discussed Empiric NIPPV support as tolerated LIZANDRO Screen - LIZANDRO History Previously diagnosed with Sleep Apnea: No If Yes, currently using CPAP to treat your LIZANDRO: No - SNORING Do you snore loudly (enough to be heard thru closed doors)?: Yes - TIRED Do you often feel tired, fatigued, or sleepy during daytime?: Yes - OBSERVED Has anyone observed you stop breathing during your sleep?: No - BLOOD PRESSURE Do you have or are being treated for high blood pressure?: Yes - BMI Answer Y if weight exceeds amount listed for your height: Yes .: HEIGHT & WEIGHT (lbs): 4'10" 167lbs; 4'11" 175 lbs; 5'0" 179lbs;. 5'1" 185lbs; 5'2" 191lbs; 5'3" 197lbs;. 5'4" 204lbs; 5'5" 210lbs; 5'6" 216lbs;. 5'7" 223lbs; 5'8" 230lbs; 5'9" 237lbs;. 5'10" 243lbs; 511" 250lbs; 6' 258lbs;. 6'1" 265lbs; 6'2" 272lbs; 6'3" 279lbs;. 6'4" 287lbs; 6'5" 295lbs - AGE Is your age over 50 yrs old?: Yes - NECK CIRCUMFERENCE Neck Circumference 40cm: Yes - GENDER Male: Yes - SCORE Total Score: 7 Score Interpretation: High Risk of LIZANDRO .: Interpretation: Score 0-2: Low Risk LIZANDRO. Score 3-4: Intermediate Risk LIZANDRO. Score 5-8: High Risk LIZANDRO Dr Lynn Problem List - Problems (1) Hypothyroid Code(s): E03.9 - HYPOTHYROIDISM, UNSPECIFIED (2) Lymphedema Code(s): I89.0 - LYMPHEDEMA, NOT ELSEWHERE CLASSIFIED (3) Morbid obesity with BMI of 50.0-59.9, adult Code(s): E66.01 - MORBID (SEVERE) OBESITY DUE TO EXCESS CALORIES; Z68.43 - BODY MASS INDEX (BMI) 50.0-59.9, ADULT (4) Scrotal swelling Code(s): N50.89 - OTHER SPECIFIED DISORDERS OF THE MALE GENITAL ORGANS (5) HAYLEY (acute kidney injury) Code(s): N17.9 - ACUTE KIDNEY FAILURE, UNSPECIFIED (6) CKD (chronic kidney disease) Code(s): N18.9 - CHRONIC KIDNEY DISEASE, UNSPECIFIED Qualifiers: Chronic kidney disease stage: stage 4 (severe) Qualified Code(s): N18.4 - Chronic kidney disease, stage 4 (severe) (7) Diabetic foot ulcer Code(s): E11.621 - TYPE 2 DIABETES MELLITUS WITH FOOT ULCER; L97.509 - NON- PRESSURE CHRONIC ULCER OTH PRT UNSP FOOT W UNSP SEVERITY Qualifiers: Diabetic foot ulcer location: midfoot Diabetes mellitus type: type 2 Laterality: left Non-pressure ulcer stage: limited to breakdown of skin Qualified Code(s): E11.621 - Type 2 diabetes mellitus with foot ulcer (8) Diabetic neuropathy Code(s): E11.40 - TYPE 2 DIABETES MELLITUS WITH DIABETIC NEUROPATHY, UNSP (9) Fluid overload Code(s): E87.70 - FLUID OVERLOAD, UNSPECIFIED Qualifiers: Hypervolemia type: unspecified Qualified Code(s): E87.70 - Fluid overload, unspecified (10) HTN (hypertension) Code(s): I10 - ESSENTIAL (PRIMARY) HYPERTENSION (11) T2DM (type 2 diabetes mellitus) Code(s): E11.9 - TYPE 2 DIABETES MELLITUS WITHOUT COMPLICATIONS
[2020-04-30] MEDS ORDERED: METOLAZONE 2.5 MG TABLET (FP) PO ONE (13:30)
[2020-05-01] MEDS: INSULIN SLIDING SCALE (NOVOLOG) 1 VIAL SQ SCH ×3 (06:53→17:00)
[2020-05-01] MEDS: FUROSEMIDE 40 MG/4 ML INJECTABLE VIAL IVPB SCH ×2 (06:53→14:36)
[2020-05-01] MEDS: LEVOTHYROXINE NA 125 MCG TABLET (FP) PO SCH (06:59)
[2020-05-01 07:40] LABS: BASO % 0.9 % (0-2.0); EOS % 5.8 % (0-4.5); HEMATOCRIT 32.9 % (35.4-49); HEMOGLOBIN 10.6 GM/dL (11.7-16.9); LYMPH % 21.7 % (8-40); MCH 29.6 pg (25.7-33.7); MCHC 32.1 g/dl (32.0-35.9); MEAN CELL VOLUME 92.2 fl (80-96); MONO % 10.1 % (3.8-10.2); NEUT % 61.5 % (42.8-82.8); PLATELET COUNT 231 K/MM3 (134-434); RBC 3.57 M/mm3 (4.00-5.60); RDW 14.1 % (11.9-15.9); WHITE BLOOD COUNT 7.8 K/mm3 (4.0-10.0)
[2020-05-01] MEDS: FUROSEMIDE 100 MG/10 ML INJECTABLE VIAL IVPB SCH (08:08)
[2020-05-01 08:10] LABS: BLOOD UREA NITROGEN 52.4 mg/dL (7-18); CALCIUM 8.9 mg/dL (8.5-10.1); CREATININE 3.9 mg/dL (0.55-1.3); MAGNESIUM 2.2 mg/dL (1.8-2.4); PHOSPHOROUS 4.2 mg/dL (2.5-4.9)
--- NOTE | 2020-05-01 09:26 | PN ---
Progress Note, Physician Chief Complaint: No new complaints - Current Medication List Current Medications: Active Medications Amlodipine Besylate (Norvasc -) 10 mg PO DAILY [facility] Last Admin: 04/30/20 10:35 Dose: 10 mg Documented by: Calcium Acetate (Phoslo -) 667 mg PO TIDCM [facility] Last Admin: 04/30/20 18:35 Dose: 667 mg Documented by: Furosemide (Lasix Injection -) 80 mg IVPB BID@0600,1400 [facility] Last Admin: 05/01/20 06:53 Dose: 80 mg Documented by: Insulin Aspart (Novolog Vial Sliding Scale -) 1 vial SQ TIDAC [facility]; Protocol Last Admin: 05/01/20 06:53 Dose: Not Given Documented by: Levothyroxine Sodium (Synthroid -) 125 mcg PO DAILY@0700 [facility] Last Admin: 05/01/20 06:59 Dose: 125 mcg Documented by: Multivitamins/Minerals (Theragran-M) 1 each PO DAILY [facility] Last Admin: 04/30/20 10:35 Dose: 1 each Documented by: Sitagliptin Phosphate (Januvia -) 100 mg PO DAILY@0700 [facility] - Objective Vital Signs: Vital Signs Temperature 97.7 F 05/01/20 06:00 Pulse Rate 86 05/01/20 06:00 Respiratory Rate 20 05/01/20 06:00 Blood Pressure 148/84 05/01/20 06:00 O2 Sat by Pulse Oximetry (%) 92 L 05/01/20 08:01 Constitutional: Yes: No Distress Eyes: Yes: WNL HENT: Yes: WNL Neck: Yes: WNL Respiratory: Yes: SOB on Exertion Genitourinary: Yes: WNL Edema: LLE: 2+, RLE: 2+ Neurological: Yes: Alert Labs: CBC, BMP 05/01/20 06:30 05/01/20 06:30 Assessment/Plan Continue IV lasix PT for ambulation
[2020-05-01] MEDS: CALCIUM ACETATE 667 MG CAPSULE (FP) PO SCH ×4 (09:36→17:03)
[2020-05-01] MEDS: MULTIVITAMINS THER W-MINERALS COMBO TABLET (FP) PO SCH (09:36)
[2020-05-01] MEDS: amLODIPine BESYLATE 5 MG TABLET (FP) PO SCH (09:36)
[2020-05-01] MEDS: ATENOLOL 25 MG TABLET (FP) PO SCH (11:20)
[2020-05-01] MEDS ORDERED: SODIUM CHLORIDE 250 ML IV PRN (12:13)
--- NOTE | 2020-05-01 12:32 | PN ---
Progress Note, Physician History of Present Illness: Seen and examined at the bedside awake and alert feeling better no cp, fever, chills, N/V/D making urine scrotum remains swollen - Current Medication List Current Medications: Active Medications Albumin Human (Albumin Human 25%) 12.5 gm IVPB Q30M [facility] Amlodipine Besylate (Norvasc -) 10 mg PO DAILY [facility] Last Admin: 05/01/20 09:36 Dose: 10 mg Documented by: Atenolol (Tenormin -) 25 mg PO DAILY [facility] Last Admin: 05/01/20 11:20 Dose: 25 mg Documented by: Calcium Acetate (Phoslo -) 667 mg PO TIDCM [facility] Last Admin: 05/01/20 11:20 Dose: 667 mg Documented by: Epoetin Lex (Procrit -) 20,000 unit IVPUSH ONCE ONE Stop: 05/02/20 08:01 Furosemide (Lasix Injection -) 80 mg IVPB BID@0600,1400 [facility] Last Admin: 05/01/20 06:53 Dose: 80 mg Documented by: Sodium Chloride (Normal Saline -) 250 mls @ 3,000 mls/hr IV PRN PRN PRN Reason: Hypotension during Dialysis Stop: 05/02/20 12:13 Insulin Aspart (Novolog Vial Sliding Scale -) 1 vial SQ TIDAC [facility]; Protocol Last Admin: 05/01/20 11:20 Dose: Not Given Documented by: Levothyroxine Sodium (Synthroid -) 125 mcg PO DAILY@0700 [facility] Last Admin: 05/01/20 06:59 Dose: 125 mcg Documented by: Multivitamins/Minerals (Theragran-M) 1 each PO DAILY [facility] Last Admin: 05/01/20 09:36 Dose: 1 each Documented by: Sitagliptin Phosphate (Januvia -) 100 mg PO DAILY@0700 [facility] - Objective Vital Signs: Vital Signs Temperature 98.2 F 05/01/20 09:51 Pulse Rate 87 05/01/20 09:51 Respiratory Rate 20 05/01/20 09:51 Blood Pressure 170/83 05/01/20 09:51 O2 Sat by Pulse Oximetry (%) 95 05/01/20 09:51 Constitutional: Yes: No Distress, Calm HENT: Yes: Atraumatic Neck: Yes: Supple Cardiovascular: Yes: Regular Rate and Rhythm Respiratory: Yes: Regular Gastrointestinal: Yes: Soft. No: Tenderness Extremities: No: Cold, Cool, Cyanosis Edema: Yes Neurological: Yes: Alert Labs: CBC, BMP 05/01/20 06:30 05/01/20 06:30 Assessment/Plan 59 year old male with history of CKD stage 4, hypertension, CHF, IDDM who presented with complaints of lower leg swelling x several weeks an d noted to have K of 6 and Cr of 4. 1. CHF/Volume overload 2. CKD stage 4 3. Hypertension 4. Hyperkalemia 5. IDDM 6. Elevated CK levels Renal function stable. Weights improving with duresis No overt electrolyte abnormalities No emergent indication for renal replacement therapy Continue Lasix 80mg IV BID and metolzone 2.5 daily for now. no LEENA/ARB given low eGFR Trend renal function and electrolytes daily CK levels improving. Cardiology follow up Physical therapy Thank you will follow Deny Sousa DO
[2020-05-01] MEDS ORDERED: METOLAZONE 2.5 MG TABLET (FP) PO ONE (13:30)
--- NOTE | 2020-05-01 15:09 | PN ---
Progress Note (short form) - Note Progress Note: Resting in NAD on [place] O2. Reports using NIPPV overnight. No acute events overnight. Intake & Output 04/28/20 04/29/20 04/30/20 05/01/20 23:59 23:59 23:59 23:59 Intake Total 450 100 800 500 Output Total 500 Balance 450 100 300 500 Weight 310 lb 14.4 oz 308 lb 307 lb 297 lb 4.8 oz Last Vital Signs Temp Pulse Resp BP Pulse Ox 98.2 F 87 20 170/83 95 05/01/20 09:51 05/01/20 09:51 05/01/20 09:51 05/01/20 09:51 05/01/20 09:51 Active Medications Albumin Human (Albumin Human 25%) 12.5 gm IVPB Q30M [facility] Amlodipine Besylate (Norvasc -) 10 mg PO DAILY [facility] Last Admin: 05/01/20 09:36 Dose: 10 mg Documented by: Atenolol (Tenormin -) 25 mg PO DAILY [facility] Last Admin: 05/01/20 11:20 Dose: 25 mg Documented by: Calcium Acetate (Phoslo -) 667 mg PO TIDCM [facility] Last Admin: 05/01/20 11:20 Dose: 667 mg Documented by: Epoetin Lex (Procrit -) 20,000 unit IVPUSH ONCE ONE Stop: 05/02/20 08:01 Furosemide (Lasix Injection -) 80 mg IVPB BID@0600,1400 [facility] Last Admin: 05/01/20 14:36 Dose: 80 mg Documented by: Sodium Chloride (Normal Saline -) 250 mls @ 3,000 mls/hr IV PRN PRN PRN Reason: Hypotension during Dialysis Stop: 05/02/20 12:13 Insulin Aspart (Novolog Vial Sliding Scale -) 1 vial SQ TIDAC [facility]; Protocol Last Admin: 05/01/20 11:20 Dose: Not Given Documented by: Levothyroxine Sodium (Synthroid -) 125 mcg PO DAILY@0700 [facility] Last Admin: 05/01/20 06:59 Dose: 125 mcg Documented by: Multivitamins/Minerals (Theragran-M) 1 each PO DAILY [facility] Last Admin: 05/01/20 09:36 Dose: 1 each Documented by: Sitagliptin Phosphate (Januvia -) 100 mg PO DAILY@0700 [facility] Constitutional: Yes: No Distress, Obese Eyes: Yes: Conjunctiva Clear, EOM Intact HENT: Yes: Atraumatic, Normocephalic, Other (Macroglossia ) Neck: Yes: Supple, Trachea Midline Cardiovascular: Yes: Regular Rate and Rhythm Respiratory: Yes: Regular, Diminished, On Nasal O2, SOB on Exertion. No: Accessory Muscle Use, Rales, Rhonchi, SOB, Stridor, Tachypnea, Wheezes ...Inspection: Yes: WNL ...Clubbing: No Gastrointestinal: Yes: Normal Bowel Sounds, Soft, Abdomen, Obese Musculoskeletal: Yes: WNL Extremities: Yes: WNL Edema: Yes Peripheral Pulses WNL: Yes Integumentary: Yes: WNL Neurological: Yes: WNL, Alert, Oriented ...Motor Strength: WNL Psychiatric: Yes: WNL, Alert, Oriented Labs: Laboratory Results - last 24 hr 04/27/20 04/30/20 05/01/20 09:55 16:17 06:30 WBC RBC Hgb Hct MCV MCH MCHC RDW Plt Count MPV Absolute Neuts (auto) Neutrophils % Lymphocytes % Monocytes % Eosinophils % Basophils % Nucleated RBC % Sodium Potassium Chloride Carbon Dioxide Anion Gap BUN Creatinine Est GFR (CKD-EPI)AfAm Est GFR (CKD-EPI)NonAf POC Glucometer 110 Random Glucose Hemoglobin A1c % 7.4 H Calcium Phosphorus Magnesium Creatine Kinase Creatine Kinase Index CK-MB (CK-2) Urine Eosinophils None seen 05/01/20 05/01/20 05/01/20 06:30 06:30 06:45 WBC 7.8 RBC 3.57 L Hgb 10.6 L Hct 32.9 L MCV 92.2 MCH 29.6 MCHC 32.1 RDW 14.1 Plt Count 231 MPV 9.0 Absolute Neuts (auto) 4.8 Neutrophils % 61.5 D Lymphocytes % 21.7 D Monocytes % 10.1 Eosinophils % 5.8 H Basophils % 0.9 Nucleated RBC % 0 Sodium 139 Potassium 4.0 Chloride 100 Carbon Dioxide 35 H Anion Gap 4 L BUN 52.4 H Creatinine 3.9 H Est GFR (CKD-EPI)AfAm 18.34 Est GFR (CKD-EPI)NonAf 15.82 POC Glucometer 119 Random Glucose 124 H Hemoglobin A1c % Calcium 8.9 Phosphorus 4.2 Magnesium 2.2 Creatine Kinase 2067 H Creatine Kinase Index 0.3 CK-MB (CK-2) 7.4 H Urine Eosinophils 05/01/20 11:19 WBC RBC Hgb Hct MCV MCH MCHC RDW Plt Count MPV Absolute Neuts (auto) Neutrophils % Lymphocytes % Monocytes % Eosinophils % Basophils % Nucleated RBC % Sodium Potassium Chloride Carbon Dioxide Anion Gap BUN Creatinine Est GFR (CKD-EPI)AfAm Est GFR (CKD-EPI)NonAf POC Glucometer 120 Random Glucose Hemoglobin A1c % Calcium Phosphorus Magnesium Creatine Kinase Creatine Kinase Index CK-MB (CK-2) Urine Eosinophils Imaging - Results Chest X-ray: Report Reviewed, Image Reviewed Problem List - Problems (1) Hypothyroid Code(s): E03.9 - HYPOTHYROIDISM, UNSPECIFIED (2) Lymphedema Code(s): I89.0 - LYMPHEDEMA, NOT ELSEWHERE CLASSIFIED (3) Morbid obesity with BMI of 50.0-59.9, adult Code(s): E66.01 - MORBID (SEVERE) OBESITY DUE TO EXCESS CALORIES; Z68.43 - BODY MASS INDEX (BMI) 50.0-59.9, ADULT (4) Scrotal swelling Code(s): N50.89 - OTHER SPECIFIED DISORDERS OF THE MALE GENITAL ORGANS (5) HAYLEY (acute kidney injury) Code(s): N17.9 - ACUTE KIDNEY FAILURE, UNSPECIFIED (6) CKD (chronic kidney disease) Code(s): N18.9 - CHRONIC KIDNEY DISEASE, UNSPECIFIED Qualifiers: Chronic kidney disease stage: stage 4 (severe) Qualified Code(s): N18.4 - Chronic kidney disease, stage 4 (severe) (7) Diabetic foot ulcer Code(s): E11.621 - TYPE 2 DIABETES MELLITUS WITH FOOT ULCER; L97.509 - NON- PRESSURE CHRONIC ULCER OTH PRT UNSP FOOT W UNSP SEVERITY Qualifiers: Diabetic foot ulcer location: midfoot Diabetes mellitus type: type 2 Laterality: left Non-pressure ulcer stage: limited to breakdown of skin Qualified Code(s): E11.621 - Type 2 diabetes mellitus with foot ulcer (8) Diabetic neuropathy Code(s): E11.40 - TYPE 2 DIABETES MELLITUS WITH DIABETIC NEUROPATHY, UNSP (9) Fluid overload Code(s): E87.70 - FLUID OVERLOAD, UNSPECIFIED Qualifiers: Hypervolemia type: unspecified Qualified Code(s): E87.70 - Fluid overload, unspecified (10) HTN (hypertension) Code(s): I10 - ESSENTIAL (PRIMARY) HYPERTENSION (11) T2DM (type 2 diabetes mellitus) Code(s): E11.9 - TYPE 2 DIABETES MELLITUS WITHOUT COMPLICATIONS LIZANDRO Screen - LIZANDRO History Previously diagnosed with Sleep Apnea: No If Yes, currently using CPAP to treat your LIZANDRO: No - SNORING Do you snore loudly (enough to be heard thru closed doors)?: Yes - TIRED Do you often feel tired, fatigued, or sleepy during daytime?: Yes - OBSERVED Has anyone observed you stop breathing during your sleep?: No - BLOOD PRESSURE Do you have or are being treated for high blood pressure?: Yes - BMI Answer Y if weight exceeds amount listed for your height: Yes .: HEIGHT & WEIGHT (lbs): 4'10" 167lbs; 4'11" 175 lbs; 5'0" 179lbs;. 5'1" 185lbs; 5'2" 191lbs; 5'3" 197lbs;. 5'4" 204lbs; 5'5" 210lbs; 5'6" 216lbs;. 5'7" 223lbs; 5'8" 230lbs; 5'9" 237lbs;. 5'10" 243lbs; 5'11" 250lbs; 6' 258lbs;. 6'1" 265lbs; 6'2" 272lbs; 6'3" 279lbs;. 6'4" 287lbs; 6'5" 295lbs - AGE Is your age over 50 yrs old?: Yes - NECK CIRCUMFERENCE Neck Circumference 40cm: Yes - GENDER Male: Yes - SCORE Total Score: 7 Score Interpretation: High Risk of LIZANDRO .: Interpretation: Score 0-2: Low Risk LIZANDRO. Score 3-4: Intermediate Risk LIZANDRO. Score 5-8: High Risk LIZANDRO Assessment/Plan Will need formal sleep testing after DC to be arranged by RT Za Daily weights Follow I & O Supplemental O2 as needed No smoking was discussed Empiric NIPPV support as tolerated Dr Lynn Problem List - Problems (1) Hypothyroid Code(s): E03.9 - HYPOTHYROIDISM, UNSPECIFIED (2) Lymphedema Code(s): I89.0 - LYMPHEDEMA, NOT ELSEWHERE CLASSIFIED (3) Morbid obesity with BMI of 50.0-59.9, adult Code(s): E66.01 - MORBID (SEVERE) OBESITY DUE TO EXCESS CALORIES; Z68.43 - BODY MASS INDEX (BMI) 50.0-59.9, ADULT (4) Scrotal swelling Code(s): N50.89 - OTHER SPECIFIED DISORDERS OF THE MALE GENITAL ORGANS (5) HAYLEY (acute kidney injury) Code(s): N17.9 - ACUTE KIDNEY FAILURE, UNSPECIFIED (6) CKD (chronic kidney disease) Code(s): N18.9 - CHRONIC KIDNEY DISEASE, UNSPECIFIED Qualifiers: Chronic kidney disease stage: stage 4 (severe) Qualified Code(s): N18.4 - Chronic kidney disease, stage 4 (severe) (7) Diabetic foot ulcer Code(s): E11.621 - TYPE 2 DIABETES MELLITUS WITH FOOT ULCER; L97.509 - NON- PRESSURE CHRONIC ULCER OTH PRT UNSP FOOT W UNSP SEVERITY Qualifiers: Diabetic foot ulcer location: midfoot Diabetes mellitus type: type 2 Laterality: left Non-pressure ulcer stage: limited to breakdown of skin Qualified Code(s): E11.621 - Type 2 diabetes mellitus with foot ulcer; L97.421 - Non-pressure chronic ulcer of left heel and midfoot limited to breakdown of skin (8) Diabetic neuropathy Code(s): E11.40 - TYPE 2 DIABETES MELLITUS WITH DIABETIC NEUROPATHY, UNSP (9) Fluid overload Code(s): E87.70 - FLUID OVERLOAD, UNSPECIFIED Qualifiers: Hypervolemia type: unspecified Qualified Code(s): E87.70 - Fluid overload, unspecified (10) HTN (hypertension) Code(s): I10 - ESSENTIAL (PRIMARY) HYPERTENSION (11) T2DM (type 2 diabetes mellitus) Code(s): E11.9 - TYPE 2 DIABETES MELLITUS WITHOUT COMPLICATIONS
[2020-05-02] MEDS: FUROSEMIDE 40 MG/4 ML INJECTABLE VIAL IVPB SCH ×2 (06:41→13:40)
[2020-05-02] MEDS: LEVOTHYROXINE NA 125 MCG TABLET (FP) PO SCH (06:41)
[2020-05-02] MEDS: INSULIN SLIDING SCALE (NOVOLOG) 1 VIAL SQ SCH ×3 (06:41→17:48)
[2020-05-02] MEDS ORDERED: EPOETIN ALFA 20,000 UNIT/1 ML VIAL IVPUSH ONE (08:00)
--- NOTE | 2020-05-02 09:25 | PN ---
Progress Note, Physician Chief Complaint: Feels better History of Present Illness: Can get up from bed and walk with walker - Current Medication List Current Medications: Active Medications Albumin Human (Albumin Human 25%) 12.5 gm IVPB Q30M [facility] Amlodipine Besylate (Norvasc -) 10 mg PO DAILY [facility] Last Admin: 05/01/20 09:36 Dose: 10 mg Documented by: Atenolol (Tenormin -) 25 mg PO DAILY [facility] Last Admin: 05/01/20 11:20 Dose: 25 mg Documented by: Calcium Acetate (Phoslo -) 667 mg PO TIDCM [facility] Last Admin: 05/01/20 17:03 Dose: Not Given Documented by: Epoetin Lex (Procrit -) 20,000 unit IVPUSH ONCE ONE Stop: 05/02/20 08:01 Furosemide (Lasix Injection -) 80 mg IVPB BID@0600,1400 [facility] Last Admin: 05/02/20 06:41 Dose: 80 mg Documented by: Sodium Chloride (Normal Saline -) 250 mls @ 3,000 mls/hr IV PRN PRN PRN Reason: Hypotension during Dialysis Stop: 05/02/20 12:13 Insulin Aspart (Novolog Vial Sliding Scale -) 1 vial SQ TIDAC [facility]; Protocol Last Admin: 05/02/20 06:41 Dose: Not Given Documented by: Levothyroxine Sodium (Synthroid -) 125 mcg PO DAILY@0700 [facility] Last Admin: 05/02/20 06:41 Dose: 125 mcg Documented by: Multivitamins/Minerals (Theragran-M) 1 each PO DAILY [facility] Last Admin: 05/01/20 09:36 Dose: 1 each Documented by: Sitagliptin Phosphate (Januvia -) 100 mg PO DAILY@0700 [facility] - Objective Vital Signs: Vital Signs Temperature 97.6 F 05/02/20 06:00 Pulse Rate 62 05/02/20 06:00 Respiratory Rate 18 05/02/20 06:00 Blood Pressure 118/65 05/02/20 06:00 O2 Sat by Pulse Oximetry (%) 98 05/02/20 09:03 Constitutional: Yes: No Distress HENT: Yes: WNL Neck: Yes: WNL Respiratory: Yes: WNL Gastrointestinal: Yes: WNL Genitourinary: Yes: WNL, Other (Scrotal swelling better) Edema: LLE: 2+, RLE: 2+ Neurological: Yes: Alert Labs: CBC, BMP 05/01/20 06:30 05/01/20 06:30 Assessment/Plan will discuss DC plans
[2020-05-02] MEDS: CALCIUM ACETATE 667 MG CAPSULE (FP) PO SCH ×2 (09:40→13:39)
[2020-05-02] MEDS: amLODIPine BESYLATE 5 MG TABLET (FP) PO SCH (09:40)
[2020-05-02] MEDS: MULTIVITAMINS THER W-MINERALS COMBO TABLET (FP) PO SCH (09:41)
[2020-05-02] MEDS: ATENOLOL 25 MG TABLET (FP) PO SCH (09:41)
--- NOTE | 2020-05-02 10:24 | PN ---
Progress Note, Physician History of Present Illness: PULMONARY ALERT,COMFORTABLE,SOB IMPROVING,-CP - Current Medication List Current Medications: Active Medications Albumin Human (Albumin Human 25%) 12.[address] [facility] Amlodipine Besylate (Norvasc -) [address] [facility] Last Admin: 05/02/20 09:40 Dose: 10 mg Documented by: Atenolol (Tenormin -) [address] [facility] Last Admin: 05/02/20 09:41 Dose: 25 mg Documented by: Calcium Acetate (Phoslo -) [address] [facility] Last Admin: 05/02/20 09:40 Dose: 667 mg Documented by: Epoetin Lex (Procrit -) 20,000 unit IVPUSH ONCE ONE Stop: 05/02/20 08:01 Furosemide (Lasix Injection -) 80 mg IVPB BID@0600,1400 [facility] Last Admin: 05/02/20 06:41 Dose: 80 mg Documented by: Sodium Chloride (Normal Saline -) 250 mls @ 3,000 mls/hr IV PRN PRN PRN Reason: Hypotension during Dialysis Stop: 05/02/20 12:13 Insulin Aspart (Novolog Vial Sliding Scale -) [address] [facility]; Protocol Last Admin: 05/02/20 06:41 Dose: Not Given Documented by: Levothyroxine Sodium (Synthroid -) 125 mcg PO DAILY@0700 [facility] Last Admin: 05/02/20 06:41 Dose: 125 mcg Documented by: Multivitamins/Minerals (Theragran-M) [address] [facility] Last Admin: 05/02/20 09:41 Dose: 1 each Documented by: Sitagliptin Phosphate (Januvia -) 100 mg PO DAILY@0700 [facility] - Objective Vital Signs: Vital Signs Temperature 97.6 F 05/02/20 06:00 Pulse Rate 62 05/02/20 06:00 Respiratory Rate 18 05/02/20 06:00 Blood Pressure 118/65 05/02/20 06:00 O2 Sat by Pulse Oximetry (%) 98 05/02/20 09:03 Constitutional: Yes: Calm, Obese Eyes: Yes: WNL HENT: Yes: WNL Neck: Yes: WNL Cardiovascular: Yes: Regular Rate and Rhythm, S1, S2 Respiratory: Yes: Diminished Gastrointestinal: Yes: Normal Bowel Sounds, Soft Extremities: Yes: WNL Edema: Yes Labs: CBC, BMP Assessment/Plan Problem List Assessment/Plan Will need formal sleep testing after DC to be arranged by RT Lasix Daily weights Follow I & O Supplemental O2 as needed No smoking was discussed Empiric NIPPV support as tolerated DR NIEVES - Problems (1) Hypothyroid Code(s): E03.9 - HYPOTHYROIDISM, UNSPECIFIED (2) Lymphedema Code(s): I89.0 - LYMPHEDEMA, NOT ELSEWHERE CLASSIFIED (3) Morbid obesity with BMI of 50.0-59.9, adult Code(s): E66.01 - MORBID (SEVERE) OBESITY DUE TO EXCESS CALORIES; Z68.43 - BODY MASS INDEX (BMI) 50.0-59.9, ADULT (4) Scrotal swelling Code(s): N50.89 - OTHER SPECIFIED DISORDERS OF THE MALE GENITAL ORGANS (5) HAYLEY (acute kidney injury) Code(s): N17.9 - ACUTE KIDNEY FAILURE, UNSPECIFIED (6) CKD (chronic kidney disease) Code(s): N18.9 - CHRONIC KIDNEY DISEASE, UNSPECIFIED Qualifiers: Chronic kidney disease stage: stage 4 (severe) Qualified Code(s): N18.4 - Chronic kidney disease, stage 4 (severe) (7) Diabetic foot ulcer Code(s): E11.621 - TYPE 2 DIABETES MELLITUS WITH FOOT ULCER; L97.509 - NON- PRESSURE CHRONIC ULCER OTH PRT UNSP FOOT W UNSP SEVERITY Qualifiers: Diabetic foot ulcer location: midfoot Diabetes mellitus type: type 2 Laterality: left Non-pressure ulcer stage: limited to breakdown of skin Qualified Code(s): E11.621 - Type 2 diabetes mellitus with foot ulcer (8) Diabetic neuropathy Code(s): E11.40 - TYPE 2 DIABETES MELLITUS WITH DIABETIC NEUROPATHY, UNSP (9) Fluid overload Code(s): E87.70 - FLUID OVERLOAD, UNSPECIFIED Qualifiers: Hypervolemia type: unspecified Qualified Code(s): E87.70 - Fluid overload, unspecified (10) HTN (hypertension) Code(s): I10 - ESSENTIAL (PRIMARY) HYPERTENSION (11) T2DM (type 2 diabetes mellitus) Code(s): E11.9 - TYPE 2 DIABETES MELLITUS WITHOUT COMPLICATIONS
[2020-05-02] MEDS: ALBUMIN HUMAN 25% 12.5 GM/50 ML VIAL IVPB SCH ×3 (11:35→17:49)
--- NOTE | 2020-05-02 14:28 | PN ---
Progress Note, Physician History of Present Illness: Seen and examined at the bedside awake and alert feeling better, denies any shortness of breath. no cp, fever, chills, N/V/D making urine swelling slowly improving able to ambulate. - Current Medication List Current Medications: Active Medications Amlodipine Besylate (Norvasc -) 10 mg PO DAILY [facility] Last Admin: 05/02/20 09:40 Dose: 10 mg Documented by: Atenolol (Tenormin -) 25 mg PO DAILY [facility] Last Admin: 05/02/20 09:41 Dose: 25 mg Documented by: Calcium Acetate (Phoslo -) 667 mg PO TIDCM [facility] Last Admin: 05/02/20 13:39 Dose: 667 mg Documented by: Furosemide (Lasix Injection -) 80 mg IVPB BID@0600,1400 [facility] Last Admin: 05/02/20 13:40 Dose: 80 mg Documented by: Insulin Aspart (Novolog Vial Sliding Scale -) 1 vial SQ TIDAC [facility]; Protocol Last Admin: 05/02/20 13:40 Dose: Not Given Documented by: Levothyroxine Sodium (Synthroid -) 125 mcg PO DAILY@0700 [facility] Last Admin: 05/02/20 06:41 Dose: 125 mcg Documented by: Multivitamins/Minerals (Theragran-M) 1 each PO DAILY [facility] Last Admin: 05/02/20 09:41 Dose: 1 each Documented by: Sitagliptin Phosphate (Januvia -) 100 mg PO DAILY@07[facility] - Objective Vital Signs: Vital Signs Temperature 98.2 F 05/02/20 10:00 Pulse Rate 72 05/02/20 10:00 Respiratory Rate 20 05/02/20 10:00 Blood Pressure 151/96 05/02/20 10:00 O2 Sat by Pulse Oximetry (%) 93 L 05/02/20 14:18 Constitutional: Yes: No Distress, Calm Neck: Yes: Supple Cardiovascular: Yes: Regular Rate and Rhythm Respiratory: Yes: Regular, CTA Bilaterally Gastrointestinal: Yes: Soft Extremities: No: Cyanosis Edema: No Neurological: Yes: Alert Labs: CBC, BMP 05/01/20 06:30 05/01/20 06:30 Assessment/Plan 59 year old male with history of CKD stage 4, hypertension, CHF, IDDM who presented with complaints of lower leg swelling x several weeks and noted to have K of 6 and Cr of 4. 1. CHF/Volume overload 2. CKD stage 4 3. Hypertension 4. Hyperkalemia 5. IDDM 6. Elevated CK levels no new labs today, renal function stable as of yesterday.. Weights improved from 145kg to 133kg. No emergent indication for renal replacement therapy Change diuretics to Torsemide 80mg BID starting tomorrow. no LEENA/ARB given low eGFR Trend renal function and electrolytes daily while inpatient. CK levels improved. Cardiology follow up Physical therapy Can anticipate discharge in next 24 hours. Check CMP in AM. Pt will need to follow up in our office in 1 week Thank you will follow Deny Sousa DO
[2020-05-02] MEDS ORDERED: METOLAZONE 2.5 MG TABLET (FP) PO ONE (14:39)
[2020-05-03] MEDS ORDERED: TORSEMIDE 20 MG TABLET (FP) PO SCH (06:00)
[2020-05-03] MEDS: LEVOTHYROXINE NA 125 MCG TABLET (FP) PO SCH (07:04)
[2020-05-03] MEDS: INSULIN SLIDING SCALE (NOVOLOG) 1 VIAL SQ SCH (07:08)
[2020-05-03 08:24] LABS: POTASSIUM 3.9 mmol/L (3.5-5.1)
[2020-05-03 08:33] LABS: BLOOD UREA NITROGEN 65.1 mg/dL (7-18); CALCIUM 8.5 mg/dL (8.5-10.1); CREATININE 4.2 mg/dL (0.55-1.3); MAGNESIUM 2.3 mg/dL (1.8-2.4)
--- NOTE | 2020-05-03 09:31 | DS ---
Physical Examination Vital Signs: Vital Signs Temperature 97.7 F 05/03/20 06:00 Pulse Rate 58 L 05/03/20 06:00 Respiratory Rate 20 05/03/20 06:00 Blood Pressure 145/69 05/03/20 06:00 O2 Sat by Pulse Oximetry (%) 92 L 05/03/20 09:13 Findings/Remarks: Admitted with SOB due to fluid overload Treated with IV lasix ,lost about 25lbs,SOB improved,Cr remains the same 4 Constitutional: Yes: No Distress Eyes: Yes: WNL HENT: Yes: WNL Neck: Yes: WNL Cardiovascular: Yes: WNL Respiratory: Yes: WNL Gastrointestinal: Yes: WNL ...Rectal Exam: Yes: Deferred Renal/: Yes: WNL Musculoskeletal: Yes: Muscle Weakness Edema: LLE: 1+, RLE: 1+ Neurological: Yes: Alert Labs: CBC, BMP 05/01/20 06:30 05/03/20 06:15 Discharge Summary Problems reviewed: Yes Reason For Visit: DIABETIC FOOT ULCER LYMPHEDEMA HYPERVOLEMIA Current Active Problems Hypothyroid (Acute) Lymphedema (Acute) Morbid obesity with BMI of 50.0-59.9, adult (Acute) LIZANDRO (obstructive sleep apnea) (Acute) Scrotal swelling (Acute) Condition: Guarded - Instructions Referrals: Gee Perez MD [Primary Care Provider] - - Home Medications Comprehensive Discharge Medication List: Ambulatory Orders Sitagliptin Phosphate [Januvia -] 100 mg PO DAILY@0700 #0 ud 08/08/16 Glipizide 5 mg PO DAILY 05/28/17 Insulin Glargine,Hum.rec.anlog [Lantus Solostar PEN (NF)] 10 units SQ BID 05/28/17 Levothyroxine [Synthroid -] 125 mcg PO DAILY@0700 05/28/17 Losartan Potassium [Cozaar -] 100 mg PO DAILY 05/28/17 Cephalexin [Keflex] 500 mg PO BID 7 Days #14 capsule 04/17/20 Furosemide [Lasix -] 80 mg PO DAILY 04/24/20 Amlodipine Besylate [Norvasc -] 10 mg PO DAILY 04/27/20 Atorvastatin Ca [Lipitor] 20 mg PO HS 04/27/20 Multivitamin/Iron/Folic Acid [Centrum Adults Tablet] 1 each PO DAILY 04/27/20 Nifedipine [Nifedipine ER] 60 mg PO DAILY 04/27/20 Vitamin A 10,000 unit PO DAILY 04/27/20
[2020-05-03] MEDS ORDERED: PT OWN MED DRAWER 7, Y5N ONE (10:11)
[2020-05-03] MEDS: ATENOLOL 25 MG TABLET (FP) PO SCH (10:22)
[2020-05-03] MEDS: amLODIPine BESYLATE 5 MG TABLET (FP) PO SCH (10:22)
[2020-05-03] MEDS: MULTIVITAMINS THER W-MINERALS COMBO TABLET (FP) PO SCH (10:23)
--- NOTE | 2020-05-03 12:50 | PN ---
Progress Note (short form) - Note Progress Note: OOB to chair on RA. Feels overall better. Intake & Output 04/30/20 05/01/20 05/02/20 05/03/20 23:59 23:59 23:59 23:59 Intake Total 800 500 550 Output Total 500 Balance 300 500 550 Weight 307 lb 297 lb 4.8 oz 294 lb 4.8 oz 292 lb 9.6 oz Last Vital Signs Temp Pulse Resp BP Pulse Ox 97.7 F 58 L 20 145/69 92 L 05/03/20 06:00 05/03/20 06:00 05/03/20 06:00 05/03/20 06:00 05/03/20 09:13 Constitutional: Yes: No Distress, Obese Eyes: Yes: Conjunctiva Clear, EOM Intact HENT: Yes: Atraumatic, Normocephalic, Other (Macroglossia ) Neck: Yes: Supple, Trachea Midline Cardiovascular: Yes: Regular Rate and Rhythm Respiratory: Yes: Regular, Diminished, On Nasal O2, SOB on Exertion. No: Accessory Muscle Use, Rales, Rhonchi, SOB, Stridor, Tachypnea, Wheezes ...Inspection: Yes: WNL ...Clubbing: No Gastrointestinal: Yes: Normal Bowel Sounds, Soft, Abdomen, Obese Musculoskeletal: Yes: WNL Extremities: Yes: WNL Edema: Yes Peripheral Pulses WNL: Yes Integumentary: Yes: WNL Neurological: Yes: WNL, Alert, Oriented ...Motor Strength: WNL Psychiatric: Yes: WNL, Alert, Oriented Labs: Laboratory Results - last 24 hr 05/02/20 05/02/20 05/03/20 17:14 22:47 06:15 Sodium 138 Potassium 3.9 Chloride 97 L Carbon Dioxide 36 H Anion Gap 4 L BUN 65.1 H Creatinine 4.2 H Est GFR (CKD-EPI)AfAm 16.77 Est GFR (CKD-EPI)NonAf 14.47 POC Glucometer 109 138 Random Glucose 123 H Calcium 8.5 Magnesium 2.3 05/03/20 07:07 Sodium Potassium Chloride Carbon Dioxide Anion Gap BUN Creatinine Est GFR (CKD-EPI)AfAm Est GFR (CKD-EPI)NonAf POC Glucometer 138 Random Glucose Calcium Magnesium Imaging - Results Chest X-ray: Report Reviewed, Image Reviewed Problem List - Problems (1) Hypothyroid Code(s): E03.9 - HYPOTHYROIDISM, UNSPECIFIED (2) Lymphedema Code(s): I89.0 - LYMPHEDEMA, NOT ELSEWHERE CLASSIFIED (3) Morbid obesity with BMI of 50.0-59.9, adult Code(s): E66.01 - MORBID (SEVERE) OBESITY DUE TO EXCESS CALORIES; Z68.43 - BODY MASS INDEX (BMI) 50.0-59.9, ADULT (4) Scrotal swelling Code(s): N50.89 - OTHER SPECIFIED DISORDERS OF THE MALE GENITAL ORGANS (5) HAYLEY (acute kidney injury) Code(s): N17.9 - ACUTE KIDNEY FAILURE, UNSPECIFIED (6) CKD (chronic kidney disease) Code(s): N18.9 - CHRONIC KIDNEY DISEASE, UNSPECIFIED Qualifiers: Chronic kidney disease stage: stage 4 (severe) Qualified Code(s): N18.4 - Chronic kidney disease, stage 4 (severe) (7) Diabetic foot ulcer Code(s): E11.621 - TYPE 2 DIABETES MELLITUS WITH FOOT ULCER; L97.509 - NON- PRESSURE CHRONIC ULCER OTH PRT UNSP FOOT W UNSP SEVERITY Qualifiers: Diabetic foot ulcer location: midfoot Diabetes mellitus type: type 2 Laterality: left Non-pressure ulcer stage: limited to breakdown of skin Qualified Code(s): E11.621 - Type 2 diabetes mellitus with foot ulcer (8) Diabetic neuropathy Code(s): E11.40 - TYPE 2 DIABETES MELLITUS WITH DIABETIC NEUROPATHY, UNSP (9) Fluid overload Code(s): E87.70 - FLUID OVERLOAD, UNSPECIFIED Qualifiers: Hypervolemia type: unspecified Qualified Code(s): E87.70 - Fluid overload, unspecified (10) HTN (hypertension) Code(s): I10 - ESSENTIAL (PRIMARY) HYPERTENSION (11) T2DM (type 2 diabetes mellitus) Code(s): E11.9 - TYPE 2 DIABETES MELLITUS WITHOUT COMPLICATIONS LIZANDRO Screen - LIZANDRO History Previously diagnosed with Sleep Apnea: No If Yes, currently using CPAP to treat your LIZANDRO: No - SNORING Do you snore loudly (enough to be heard thru closed doors)?: Yes - TIRED Do you often feel tired, fatigued, or sleepy during daytime?: Yes - OBSERVED Has anyone observed you stop breathing during your sleep?: No - BLOOD PRESSURE Do you have or are being treated for high blood pressure?: Yes - BMI Answer Y if weight exceeds amount listed for your height: Yes .: HEIGHT & WEIGHT (lbs): 4'10" 167lbs; 4'11" 175 lbs; 5'0" 179lbs;. 5'1" 185lbs; 5'2" 191lbs; 5'3" 197lbs;. 5'4" 204lbs; 5'5" 210lbs; 5'6" 216lbs;. 5'7" 223lbs; 5'8" 230lbs; 5'9" 237lbs;. 5'10" 2 43lbs; 511" 250lbs; 6' 258lbs;. 6'1" 265lbs; 6'2" 272lbs; 6'3" 279lbs;. 6'4" 287lbs; 6'5" 295lbs - AGE Is your age over 50 yrs old?: Yes - NECK CIRCUMFERENCE Neck Circumference 40cm: Yes - GENDER Male: Yes - SCORE Total Score: 7 Score Interpretation: High Risk of LIZANDRO .: Interpretation: Score 0-2: Low Risk LIZANDRO. Score 3-4: Intermediate Risk LIZANDRO. Score 5-8: High Risk LIZANDRO Assessment/Plan Will need formal sleep testing after DC Lasix No smoking was discussed DC home Dr Lynn Problem List - Problems (1) Hypothyroid Code(s): E03.9 - HYPOTHYROIDISM, UNSPECIFIED (2) Lymphedema Code(s): I89.0 - LYMPHEDEMA, NOT ELSEWHERE CLASSIFIED (3) Morbid obesity with BMI of 50.0-59.9, adult Code(s): E66.01 - MORBID (SEVERE) OBESITY DUE TO EXCESS CALORIES; Z68.43 - BODY MASS INDEX (BMI) 50.0-59.9, ADULT (4) Scrotal swelling Code(s): N50.89 - OTHER SPECIFIED DISORDERS OF THE MALE GENITAL ORGANS (5) HAYLEY (acute kidney injury) Code(s): N17.9 - ACUTE KIDNEY FAILURE, UNSPECIFIED (6) CKD (chronic kidney disease) Code(s): N18.9 - CHRONIC KIDNEY DISEASE, UNSPECIFIED Qualifiers: Chronic kidney disease stage: stage 4 (severe) Qualified Code(s): N18.4 - Chronic kidney disease, stage 4 (severe) (7) Diabetic foot ulcer Code(s): E11.621 - TYPE 2 DIABETES MELLITUS WITH FOOT ULCER; L97.509 - NON- PRESSURE CHRONIC ULCER OTH PRT UNSP FOOT W UNSP SEVERITY Qualifiers: Diabetic foot ulcer location: midfoot Diabetes mellitus type: type 2 Laterality: left Non-pressure ulcer stage: limited to breakdown of skin Qualified Code(s): E11.621 - Type 2 diabetes mellitus with foot ulcer; L97.421 - Non-pressure chronic ulcer of left heel and midfoot limited to breakdown of skin (8) Diabetic neuropathy Code(s): E11.40 - TYPE 2 DIABETES MELLITUS WITH DIABETIC NEUROPATHY, UNSP (9) Fluid overload Code(s): E87.70 - FLUID OVERLOAD, UNSPECIFIED Qualifiers: Hypervolemia type: unspecified Qualified Code(s): E87.70 - Fluid overload, unspecified (10) HTN (hypertension) Code(s): I10 - ESSENTIAL (PRIMARY) HYPERTENSION (11) T2DM (type 2 diabetes mellitus) Code(s): E11.9 - TYPE 2 DIABETES MELLITUS WITHOUT COMPLICATIONS
--- NOTE | 2020-05-03 13:03 | PN ---
Progress Note, Physician History of Present Illness: Seen and examined at the bedside awake and alert feeling better, denies any shortness of breath. no cp, fever, chills, N/V/D making urine swelling slowly improving able to ambulate. for discharge today - Objective Vital Signs: Vital Signs Temperature 97.7 F 05/03/20 06:00 Pulse Rate 58 L 05/03/20 06:00 Respiratory Rate 05/03/20 06:00 Blood Pressure 145/69 05/03/20 06:00 O2 Sat by Pulse Oximetry (%) 92 L 05/03/20 09:13 Constitutional: Yes: No Distress Eyes: Yes: Conjunctiva Clear HENT: Yes: Atraumatic Neck: Yes: Supple Cardiovascular: Yes: Regular Rate and Rhythm Respiratory: Yes: Regular, CTA Bilaterally Gastrointestinal: Yes: Soft Extremities: No: Cyanosis Edema: Yes Edema: LLE: 2+, RLE: 2+ Neurological: Yes: Alert, Oriented Labs: CBC, BMP 05/01/20 06:30 05/03/20 06:15 Assessment/Plan 59 year old male with history of CKD stage 4, hypertension, CHF, IDDM who presented with complaints of lower leg swelling x several weeks and noted to have K of 6 and Cr of 4. 1. CHF/Volume overload 2. CKD stage 4 3. Hypertension 4. Hyperkalemia 5. IDDM 6. Elevated CK levels Renal function stable. Weights improved from 145kg to 132kg. No emergent indication for renal replacement therapy Continue Torsemide 80mg BID on discharge. Rx sent to pharmacy. no LEENA/ARB given low eGFR Importance of medication compliance and salt restriction discussed at length with the patient and sister who was at the bedside. Counseled pt on low sodium diet and CKD. Will follow up in our office next . Thank you will follow Deny Sousa DO
[2020-05-03 16:04] VITALS: BP 148/86; PULSE 59; TEMP 98.3
== END 2020-05-03 12:29 | disposition home or self-care (01) | DRG 292 ==
LOC: JER 08:48 → JERBED 12:48 → J7W 04-28 00:12
PROVIDERS: ADMIT Internal Medicine; ATTEND Internal Medicine
DX: I13.0 Hypertensive heart and chronic kidney disease with heart failure and stage 1 through stage 4 chronic kidney disease, or unspecified chronic kidney disease (principal); Z68.43 Body mass index [BMI] 50.0-59.9, adult; N18.4 Chronic kidney disease, stage 4 (severe); E87.70 Fluid overload, unspecified; E03.9 Hypothyroidism, unspecified; I89.0 Lymphedema, not elsewhere classified; E66.01 Morbid (severe) obesity due to excess calories; E11.9 Type 2 diabetes mellitus without complications; E87.5 Hyperkalemia; N50.89 Other specified disorders of the male genital organs; G47.33 Obstructive sleep apnea (adult) (pediatric); I50.9 Heart failure, unspecified
CPT/HCPCS: 11042; 36415; 71045-TC-FY; 76775-TC; 76856-TC; 80048; 80053; 82550; 82553; 82565; 82728; 82962; 83036; 83540; 83550; 83735; 83880; 84100; 84156; 84300; 84484; 85025; 85027; 87086; 87205; 93005; 93010; 93970-TC; 94660; 97116-GP; 97161-GP; 99285-25; A6022; U0003

== ENCOUNTER 2020-05-05 14:28 | Inpatient (IN) | payer MEDICARE, OTHER ==
[2020-05-05] MEDS ORDERED: GlUCAGON HUMAN RECOMBINANT 1 MG/VIAL ONE ×2 (14:44→14:45)
--- OUTSIDE RECORDS SUMMARY | 2020-05-05 14:48 | XMS ---
:1960 Author Organization [facility] Support Name Relationship Address Phone MARIAJOSE [place]ORRISON [place] [id number] UE, UNEMPLOYED Unavailable Unavailable Unavailable UE Unavailable Unavailable Unavailable [employer] OTHER RELATIONSHIP [place] [address] Re-disclosure Warning The records that you are about to access may contain information from federally- assisted alcohol or drug abuse programs. If such information is present, then the following federally mandated warning applies: This information has been disclosed to you from records protected by federal confidentiality rules (42 CFR part 2). The federal rules prohibit you from making any further disclosure of this information unless further disclosure is expressly permitted by the written consent of the person to whom it pertains or as otherwise permitted by 42 CFR part 2. A general authorization for the release of medical or other information is NOT sufficient for this purpose. The Federal rules restrict any use of the information to criminally investigate or prosecute any alcohol or drug abuse patient.The records that you are about to access may contain highly sensitive health information, the redisclosure of which is protected by Article 27-F of the [facility] Public Health law. If you continue you may haveaccess to information: Regarding HIV / AIDS; Provided by facilities licensed or operated by the [facility] Office of Mental Health; or Provided by the [facility] Office for People With Developmental Disabilities. If such information is present, then the following [facility] mandated warning applies: This information has been disclosed to you from confidential records which are protected by state law. State law prohibits you from making any further disclosure of this information without the specific written consent of the person to whom it pertains, or as otherwise permitted by law. Any unauthorized further disclosure in violation of state law may result in a fine or longterm sentence or both. A general authorization for the release of medical or other information is NOT sufficient authorization for further disclosure. Encounters Encounter Providers Location Date Indications Data Source(s ) Outpatient 11/04/2018 11:35:00 [facility] ([facility] Insurance Providers Payer name Policy type Policy ID Covered Covered republican's Policy P yael / Coverage republican ID relationship to [employer] ormation type [employer] TANK [id number] SP [id number] MEDICARE ADV PLAN MEDICAID [id number] SP [id number] TANK [id number] SP [id number] MEDICARE ADV PLAN JONI MEDICARE [id number] SP [id number] MEDICAID [id number] SP [id number] MEDICAID [id number] SP [id number] [place] [id number] SP [id number] COMPLETE MEDICAID [id number] SP [id number] MEDICAID [id number] SP [id number] [place] [id number] SP [id number] COMPLETE UNHC MEDICAID [id number] SP [id number] COMM PLAN TANK [id number] SP [id number] MEDICARE ADV PLAN ELDERPLAN [id number] SP [id number] MEDICAID [id number] SP [id number] [place] [id number] SP [id number] HEALTH PLAN MEDICAID [id number] SP [id number] HIP SOURCING COORDINATOR [id number] SP [id number] MEDICARE [id number] SP [id number] HIP MEDICARE [id number] SP [id number] VIP Results ID Date Data Source [id number] 04/27/2020 10:50:00 PM EDT [facility] Name Value Range Interpretation Description Data Sup porting Code Source(s) Document(s ) SARS [facility] coronavirus 2 RNA This lab was ordered by [facility] and reported by [facility]. Procedure
--- NOTE | 2020-05-05 14:53 | PDOC ---
History of Present Illness - General Chief Complaint: Blood Sugar Problem Stated Complaint: LOW BLOOD SUGAR Time Seen by Provider: 05/05/20 14:52 History Source: Patient, Care Provider Exam Limitations: No Limitations - History of Present Illness Initial Comments: 05/05/20 15:52 HPI: This is a 59 y/o male with a PMH of CHF, HTN, HLD, IDDM and CKD BIBA due to an episode of hypoglycemia this morning. The patient routinely checks his sugar, which he said was in the 120's before giving himself 50 units of lantus, and taking 5mg Glipizide and 100mg Januvia. He states he was then able to eat breakfast. The patient reports that this morning following his medication, he felt dizzy, disoriented, and was shaking. His aide, who is with him in ED says that he was not acting like himself and seemed disoriented and diaphoretic. They checked his blood sugar again at home, which was 36 and then called an ambulance. He was given 1mg of glucagon by EMS. Blood glucose on arrival was 119. Admits to shortness of breath, however he states he is short of breath at baseline. He was just discharged two days after being admitted for a CHF exacerbation. Patient was supposed to follow-up as an outpatient. Denied chest pain, headache, blurry vision, abdominal pain, dysuria, hematuria, cough, or sick contacts. PMH: HTN, HLD, IDDM, CKD stage 4, CHF Social hx: Denies etoh, tobacco Meds: See nurse note Allergies: KNDA ROS: Constitutional - chills/sweats, dizzy HEENT: denies vision changes, sore throat Respiratory: Denies cough, Admits to SOB but states this is his baseline Cardiac: denies chest pain, palpitations, Bilateral leg edema and lymphedema. Also at baseline Abd/GI: denies abd pain, nausea : denies dysuria, frequency Musculskelatal - denies back pain, joint swelling skin - denies bruising, erythema, rash neurological: denies headache, numbness hematologic: denies anemia, easy bruising, easy bleeding PE: GENERAL: The patient is awake, alert, and fully oriented, Nontoxic - in no acute distress. Patient is conversational. HEAD: Normocephalic, atraumatic. EYES: extraocular movements intact ENT: Normal voice, Moist mucous membranes. NECK: Normal range of motion, supple without lymphadenopathy LUNGS: Breath sounds equal bilaterally. Bilateral basilar rales HEART: Regular rate and rhythm ABDOMEN: Soft, nontender, normoactive bowel sounds. EXTREMITIES: Bilateral lower extremity pitting edema to groin NEUROLOGICAL: No facial asymmetry, Normal speech PSYCH: Normal mood, normal affect. SKIN: Diaphoretic, warm MDM: 05/05/20 16:20 This is a 59 y/o male with a PMH of CHF, HTN, HLD, IDDM and CKD presenting to [facility] ED due to an episode of hypoglycemia this morning. - Took 50 units of lantus 5mg Glipizide and 100mg Januvia - Sugar was 36 prior to calling EMS - EMS gave 1mg glucagon - Repeat fingerstick 119 upon arrival to ED - Patient conversational upon arrival, AAOx4. - Patient reports he has been taking the same medications for months, and he has never had an episode of hypoglycemia before - CBC, CMP, UA, CXR, EKG. 05/05/20 18:45 - Patient glucose dropped to 26 on fingerstick - Patient was still awake and conversational. Starting to get diaphoretic, and says he felt slightly confused - He was given juice, a sandwich, and an amp of D50 - Patient became bradycardic in the 40's, which improved after D50 was given. Now in the 50s. - Will repeat BGMq2 - Repeat fingerstick after intervention was 130 - Would like to admit to telemetry - Spoke with Dr. Perez who accepted patient Labs notable for: - Increase in creatinine from 4.2 to 5.2 since recent admit. - acute on chronic kidney injury - BNP increased to 539.3 from 352 - WBC 10.6 - Cl 93 - CO2 37 - BUN 77.7 - Patient admitted Past History - Medical History Allergies/Adverse Reactions: Allergies Allergy/AdvReac Type Severity Reaction Status Date / Time No Known Allergies Allergy Verified 04/27/20 08:53 Home Medications: Ambulatory Orders Sitagliptin Phosphate [Januvia -] 100 mg PO DAILY@0700 #0 ud 08/08/16 Glipizide 5 mg PO DAILY 05/28/17 Insulin Glargine,Hum.rec.anlog [Lantus Solostar PEN (NF)] 10 units SQ BID 05/28/17 Levothyroxine [Synthroid -] 125 mcg PO DAILY@0700 05/28/17 Cephalexin [Keflex] 500 mg PO BID 7 Days #14 capsule 04/17/20 Atorvastatin Ca [Lipitor] 20 mg PO HS 04/27/20 Multivitamin/Iron/Folic Acid [Centrum Adults Tablet] 1 each PO DAILY 04/27/20 Nifedipine [Nifedipine ER] 60 mg PO DAILY 04/27/20 Vitamin A 10,000 unit PO DAILY 04/27/20 Torsemide [Demadex -] 80 mg PO BID@0600,1400 #240 tablet 05/03/20 Anemia: No Asthma: Yes Cancer: No Cardiac Disorders: No CVA: No COPD: No CHF: No Dementia: No Diabetes: Yes GI Disorders: No Disorders: No HTN: Yes Hypercholesterolemia: No Liver Disease: No Seizures: Yes Thyroid Disease: Yes (HYPO) - Surgical History Abdominal Surgery: No Cardiac Surgery: No Cholecystectomy: No Lung Surgery: No Neurologic Surgery: No Orthopedic Surgery: Yes (LT GREAT TOE AMPUTATION) - Immunization History Immunization Up to Date: Yes - Psycho-Social/Smoking History Smoking Status: Yes Smoking History: Never smoked Have you smoked in the past 12 months: No Number of Cigarettes Smoked Daily: 0 If you are a former smoker, when did you quit?: 3 YRS ED Treatment Course - LABORATORY CBC & Chemistry Diagram: 05/05/20 16:38 05/05/20 16:57 Discharge - Discharge Information Problems reviewed: Yes Clinical Impression/Diagnosis: Hypoglycemia - Follow up/Referral - Patient Discharge Instructions - Post Discharge Activity
--- NOTE | 2020-05-05 16:16 | PDOC ---
Documentation entered by Arlene Petersen SCRIBE, acting as scribe for Olga Castro MD. Olga Castro MD: This documentation has been prepared by the onofre, Arlene Stout SCRIBE, under my direction and personally reviewed by me in its entirety. I confirm that the documentation accurately reflects all work, treatment, procedures, and medical decision making performed by me. Attending Attestation - Resident Resident Name: Violeta Grullon - ED Attending Attestation I have performed the following: I have examined & evaluated the patient, The case was reviewed & discussed with the resident, I agree w/resident's findings & plan, Exceptions are as noted - HPI HPI: 05/05/20 16:56 The patient is a 59 year old male with a significant PMH of CHF, HTN, HLD, IDDM and CKD who presents tot he ED for evaluation of low blood sugar this AM. The patient normally takes 50 units of lantus 2x a day and reports that he checked his sugar this am prior to taking insulin and does not remember the exact number but notes that it was low. He is endorsing chills last night and feeling dizzy this morning along with being shaky. Per aide, the patient was not at baseline this morning and seemed disoriented and bc was 36. Given glucose with EMS en route. The patient denies chest pain, shortness of breath. Denies nausea/vomiting. Allergies: NKA - Physicial Exam PE: GENERAL: Awake, alert, and fully oriented, in no acute distress. Morbidly obese HEAD: No signs of trauma EYES: PERRLA, EOMI, sclera anicteric, conjunctiva clear ENT: Auricles normal inspection, hearing grossly normal, nares patent, oropharynx clear without exudates. Moist mucosa NECK: Normal ROM, supple, no lymphadenopathy, JVD, or masses LUNGS: Limited by body habitus- breath sounds distant. +Transmitted upper airway sounds HEART: Regular rate and rhythm, normal S1 and S2, no murmurs, rubs or gallops ABDOMEN: Soft, nontender, normoactive bowel sounds. No guarding, no rebound. No masses EXTREMITIES: Normal range of motion, 4+ pitting edema to BLE, to the level of the scrotum. No clubbing or cyanosis. No cords, erythema, or tenderness NEUROLOGICAL: Cranial nerves II through XII grossly intact. Normal speech. Motor and sensation intact. Ambulates with assistance SKIN: Warm, dry, normal turgor. +BLE venous stasis changes - Medical Decision Making 05/05/20 16:26 Pt with episode of hypoglycemia just [employer], received glucagon. Also with worsening SOB. History of CKD, CHF. Will send labs, check CXR, UA. Likely admission. Discharge - Discharge Information Problems reviewed: Yes Clinical Impression/Diagnosis: Hypoglycemia Condition: Fair Disposition: VNS/HOME HEALTH CARE - Follow up/Referral - Patient Discharge Instructions - Post Discharge Activity
[2020-05-05 16:51] LABS: BASO % 0.6 % (0-2.0); EOS % 1.7 % (0-4.5); HEMOGLOBIN 12.1 GM/dL (11.7-16.9); LYMPH % 16.2 % (8-40); MCH 30.5 pg (25.7-33.7); MCHC 32.8 g/dl (32.0-35.9); MEAN PLT VOLUME 9.1 fl (7.5-11.1); MONO % 7.8 % (3.8-10.2); NEUT % 73.7 % (42.8-82.8); PLATELET COUNT 255 K/MM3 (134-434); RBC 3.98 M/mm3 (4.00-5.60); RDW 14.3 % (11.9-15.9); WHITE BLOOD COUNT 10.6 K/mm3 (4.0-10.0)
[2020-05-05 17:49] LABS: ALBUMIN 2.7 g/dl (3.4-5.0); BILIRUBIN,TOTAL 0.2 mg/dL (0.2-1); BLOOD UREA NITROGEN 77.7 mg/dL (7-18); CALCIUM 8.5 mg/dL (8.5-10.1); CREATININE 5.2 mg/dL (0.55-1.3); N-TERMINAL BNP 539.3 pg/ml (5-125); POTASSIUM 3.6 mmol/L (3.5-5.1)
[2020-05-05] MEDS ORDERED: DEXTROSE 50%-WATER - 25 GM/50 ML VIAL IVPUSH ONE ×2 (18:10→22:35)
[2020-05-05] MEDS ORDERED: DEXTROSE 50%-WATER 25 GM/50 ML DISP.SYRIN ONE ×2 (18:20→22:40)
--- OUTSIDE RECORDS SUMMARY | 2020-05-05 18:55 | XMS ---
:1960 Author Organization [facility] Support Name Relationship Address Phone MARIAJOSE [place] [address] UE, UNEMPLOYED Unavailable Unavailable Unavailable UE Unavailable Unavailable Unavailable [employer] OTHER RELATIONSHIP [place] [address] Re-disclosure Warning The records that you are [...] is protected by Article 27-F of the [facility] Public Health law. If you continue you may haveaccess to information: Regarding HIV / AIDS; Provided by facilities licensed or operated by the [facility] Office of Mental Health; or Provided by the [facility] Office for People With Developmental Disabilities. If such information is present, then the following [facility] mandated warning applies: This information has been [...] law may result in a fine or skilled nursing sentence or both. A general authorization for the release of medical or other information is NOT sufficient authorization for further disclosure. Encounters Encounter Providers Location Date Indications Data Source(s ) Outpatient 11/04/2018 11:35:00 [facility] ([facility] Insurance Providers Payer name Policy type Policy ID Covered Covered alliance party's Policy P yael / Coverage alliance party ID relationship to [employer] ormation type michaels TANK [id number] SP [id number] MEDICARE ADV PLAN MEDICAID [id number] SP [id number] TANK [id number] SP [id number] MEDICARE ADV PLAN JONI MEDICARE [id number] SP [id number] MEDICAID [id number] SP [id number] MEDICAID [id number] SP [id number] [place] [id number] SP [id number] COMPLETE MEDICAID [id number] SP [id number] MEDICAID [id number] SP [id number] [place] [id number] SP [id number] COMPLETE UNHC MEDICAID [id number] SP [id number] COMM PLAN TANK [id number] SP [id number] MEDICARE ADV PLAN ELDERPLAN [id number] SP [id number] MEDICAID [id number] SP [id number] [place] [id number] SP [id number] HEALTH PLAN MEDICAID [id number] SP [id number] 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 Procedure
[2020-05-06] MEDS: DEXTROSE 5%-0.45% SALINE 1,000 ML IV SCH (01:04)
[2020-05-06 01:51] VITALS: BMI 49.7
[2020-05-06] MEDS ORDERED: DEXTROSE 50%-WATER - 25 GM/50 ML VIAL IVPUSH ONE (02:00)
[2020-05-06] MEDS ORDERED: DEXTROSE 50%-WATER - 25 GM/50 ML VIAL IVPUSH PRN (02:10)
[2020-05-06] MEDS ORDERED: DEXTROSE 50%-WATER - 25 GM/50 ML VIAL ONE (04:17)
[2020-05-06] MEDS: INSULIN SLIDING SCALE (NOVOLOG) 1 VIAL SQ SCH ×3 (07:07→17:09)
--- NOTE | 2020-05-06 09:30 | EKG ---
Test Reason : Blood Pressure : / mmHG Vent. Rate : 051 BPM Atrial Rate : 051 BPM P-R Int : 158 ms QRS Dur : 096 ms QT Int : 480 ms P-R-T Axes : 046 -07 043 degrees QTc Int : 442 ms SINUS BRADYCARDIA CANNOT RULE OUT ANTERIOR INFARCT , AGE UNDETERMINED ABNORMAL ECG WHEN COMPARED WITH ECG OF 27-APR-2020 10:40, VENT. RATE HAS DECREASED BY 26 BPM Confirmed by Kristal Lezama ([id number]) on 05/06/2020 9:30:22 AM Referred By: Confirmed By:Kristal Lezama
[2020-05-06 17:51] LABS: EPI CELLS 4 /uL (0-25.1); HYALINE CASTS 1 /uL (0-3.1); PH,URINE 5.5 (5.0-8.0); URINE APPEARANCE CLEAR; URINE BACTERIA 3 /uL (0-1359); URINE BILIRUBIN NEGATIVE (NEGATIVE); URINE COLOR YELLOW; URINE GLUCOSE (UA) NEGATIVE (NEGATIVE); URINE KETONE NEGATIVE (NEGATIVE); URINE LEUK ESTERASE NEGATIVE (NEGATIVE); URINE NITRITE NEGATIVE (NEGATIVE); URINE PROTEIN 3+ (NEGATIVE); URINE RBC 13 /uL (0-23.9); URINE UROBILINOGEN 0.2 mg/dL (0.2-1.0); URINE WBC 2 /uL (0-25.8)
[2020-05-07] MEDS: INSULIN SLIDING SCALE (NOVOLOG) 1 VIAL SQ SCH ×3 (00:04→11:00)
[2020-05-07] MEDS: DEXTROSE 5%-0.45% SALINE 1,000 ML IV SCH (01:15)
[2020-05-07 09:42] VITALS: BP 156/82; PULSE 68; TEMP 97.8
--- NOTE | 2020-05-07 09:52 | DS ---
Physical Examination Vital Signs: Vital Signs Temperature 97.8 F 05/07/20 09:38 Pulse Rate 68 05/07/20 09:38 Respiratory Rate 16 05/07/20 09:38 Blood Pressure 156/82 05/07/20 09:38 O2 Sat by Pulse Oximetry (%) 93 L 05/07/20 09:38 Findings/Remarks: Diabetic on insulin admitted with hypoglycemia Known to CRF and fluid retention Discharged home on 05/04/20 readmitted on 05/05/20 Constitutional: Yes: No Distress Eyes: Yes: WNL HENT: Yes: WNL, Tonsillar Exudate Neck: Yes: WNL Cardiovascular: Yes: WNL Respiratory: Yes: WNL Gastrointestinal: Yes: WNL ...Rectal Exam: Yes: Deferred Renal/: Yes: Oliguria Edema: LLE: 1+, RLE: 1+ Neurological: Yes: Alert Psychiatric: Yes: Alert Labs: CBC, BMP 05/05/20 16:38 05/05/20 16:57 Blood sugar this AM 180 Discharge Summary Problems reviewed: Yes Reason For Visit: HYPOGLYCEMIA Current Active Problems Hypoglycemia (Acute) - Instructions Referrals: Gee Perez MD [Primary Care Provider] - - Home Medications Comprehensive Discharge Medication List: Ambulatory Orders Sitagliptin Phosphate [Januvia -] 100 mg PO DAILY@0700 #0 ud 08/08/16 Glipizide 5 mg PO DAILY 05/28/17 Insulin Glargine,Hum.rec.anlog [Lantus Solostar PEN (NF)] 10 units SQ BID 05/28/17 Levothyroxine [Synthroid -] 125 mcg PO DAILY@0700 05/28/17 Cephalexin [Keflex] 500 mg PO BID 7 Days #14 capsule 04/17/20 Atorvastatin Ca [Lipitor] 20 mg PO HS 04/27/20 Multivitamin/Iron/Folic Acid [Centrum Adults Tablet] 1 each PO DAILY 04/27/20 Nifedipine [Nifedipine ER] 60 mg PO DAILY 04/27/20 Vitamin A 10,000 unit PO DAILY 04/27/20 Torsemide [Demadex -] 80 mg PO BID@0600,1400 #240 tablet 05/03/20
== END 2020-05-07 12:24 | disposition home health service (06) | DRG 699 ==
LOC: JER 14:28 → JERBED 18:12 → J4W 05-06
PROVIDERS: ADMIT Internal Medicine; ATTEND Internal Medicine
DX: E11.22 Type 2 diabetes mellitus with diabetic chronic kidney disease (principal); I13.0 Hypertensive heart and chronic kidney disease with heart failure and stage 1 through stage 4 chronic kidney disease, or unspecified chronic kidney disease; Z68.42 Body mass index [BMI] 45.0-49.9, adult; E11.649 Type 2 diabetes mellitus with hypoglycemia without coma; N18.4 Chronic kidney disease, stage 4 (severe); I50.9 Heart failure, unspecified; E78.5 Hyperlipidemia, unspecified; Z79.4 Long term (current) use of insulin; E66.01 Morbid (severe) obesity due to excess calories
CPT/HCPCS: 36415; 71045-TC-FY; 80053; 81003; 82962; 83880; 84484; 85025; 87086; 93005; 93010; 99285-25; U0003

== ENCOUNTER 2020-11-01 05:22 | Day surgery (SDC) | payer MEDICARE, OTHER ==
[2020-11-01] MEDS ORDERED: HEPARIN NA (PORCINE) 5,000 UNITS/ML 1ML VIAL ONE (11:29)
[2020-11-01] MEDS ORDERED: POVIDONE-IODINE OINTMENT 10% - 28.4 GM TUBE ONE (11:29)
[2020-11-01] MEDS ORDERED: LIDOCAINE HCL 1%, 10 MG/ML (20ML VIAL) ONE (11:29)
[2020-11-01 12:03] VITALS: BMI 49.6
[2020-11-01] MEDS ORDERED: ceFAZolin 2 GRAM PREMIX BAG IVPB ONE (14:40)
[2020-11-01] MEDS ORDERED: LACTATED RINGERS SOLUTION 1,000 ML IV SCH (14:45)
[2020-11-01 16:34] VITALS: BP 151/78; PULSE 65; TEMP 98
== END 2020-11-01 17:30 | disposition home or self-care (01) ==
LOC: JASU-SURG 05:22
PROVIDERS: ATTEND Surgery Vascular Surgery
PROC: 03180ZD Bypass Left Brachial Artery to Upper Arm Vein, Open Approach (ICD-10-PCS; principal; 2020-11-01 13:00)
DX: I12.0 Hypertensive chronic kidney disease with stage 5 chronic kidney disease or end stage renal disease (principal); E11.22 Type 2 diabetes mellitus with diabetic chronic kidney disease; N18.6 End stage renal disease; Z99.2 Dependence on renal dialysis
CPT/HCPCS: 82962; J1644

== ENCOUNTER 2020-11-05 12:19 | Emergency (ER) | payer MEDICARE, OTHER ==
[2020-11-05 12:38] VITALS: TEMP 98.7; BMI 49.4
[2020-11-05] MEDS ORDERED: FUROSEMIDE 40 MG/4 ML INJECTABLE VIAL IVPUSH ONE (13:26)
[2020-11-05] MEDS ORDERED: FUROSEMIDE 40 MG/4 ML INJECTABLE VIAL ONE (13:45)
[2020-11-05 13:53] LABS: BASO % 1.2 % (0-2.0); EOS % 6.9 % (0-4.5); HEMATOCRIT 30.9 % (35.4-49); HEMOGLOBIN 10.3 GM/dL (11.7-16.9); LYMPH % 24.2 % (8-40); MCH 30.3 pg (25.7-33.7); MCHC 33.3 g/dl (32.0-35.9); MEAN CELL VOLUME 90.9 fl (80-96); MEAN PLT VOLUME 8.8 fl (7.5-11.1); MONO % 8.6 % (3.8-10.2); NEUT % 59.1 % (42.8-82.8); PLATELET COUNT 222 K/MM3 (134-434); RBC 3.39 M/mm3 (4.00-5.60); RDW 14.4 % (11.9-15.9); WHITE BLOOD COUNT 8.1 K/mm3 (4.0-10.0)
[2020-11-05 14:18] LABS: CHLORIDE 98 mmol/L (98-107); POTASSIUM 3.8 mmol/L (3.5-5.1); SODIUM 135 mmol/L (136-145)
[2020-11-05 14:21] LABS: ALBUMIN 2.9 g/dl (3.4-5.0); ANION GAP 4 MMOL/L (8-16); BLOOD UREA NITROGEN 85.9 mg/dL (7-18); CALCIUM 8.7 mg/dL (8.5-10.1); CO2 33 mmol/L (21-32); GLUCOSE,RANDOM 127 mg/dL (74-106); MAGNESIUM 2.2 mg/dL (1.8-2.4)
[2020-11-05 14:24] LABS: PHOSPHOROUS 4.4 mg/dL (2.5-4.9); SGOT/AST 48 U/L (15-37); SGPT/ALT 21 U/L (13-61)
[2020-11-05 14:25] LABS: BILIRUBIN,TOTAL 0.2 mg/dL (0.2-1); TOT PROT 7.8 g/dl (6.4-8.2)
[2020-11-05 14:26] LABS: ALK PHOS 93 U/L (45-117)
[2020-11-05 14:30] LABS: N-TERMINAL BNP 288.2 pg/ml (5-125)
[2020-11-05 15:26] VITALS: BP 135/67; PULSE 65
== END 2020-11-05 15:26 | disposition home or self-care (01) ==
LOC: JER 12:19
PROC: 3E033GC Introduction of Other Therapeutic Substance into Peripheral Vein, Percutaneous Approach (ICD-10-PCS; principal; 2020-11-05)
DX: R06.02 Shortness of breath (principal)
CPT/HCPCS: 36415; 71046-TC-FY; 80053; 83735; 83880; 84100; 84484; 85025; 87804; 93005; 93010; 99285-25; C9803; U0003

== ENCOUNTER 2020-12-27 04:23 | Day surgery (SDC) | payer MEDICARE, OTHER ==
[2020-12-21 14:22] VITALS: BMI 48.0
[2020-12-27] MEDS ORDERED: POVIDONE-IODINE OINTMENT 10% - 28.4 GM TUBE ONE (07:08)
[2020-12-27] MEDS ORDERED: HEPARIN NA (PORCINE) 5,000 UNITS/ML 1ML VIAL ONE ×2 (07:08→10:57)
[2020-12-27] MEDS ORDERED: LIDOCAINE HCL 1%, 10 MG/ML (20ML VIAL) ONE (07:08)
[2020-12-27] MEDS ORDERED: MIDAZOLAM HCL 2 MG/2 ML SINGLE DOSE VIAL ONE (10:19)
[2020-12-27] MEDS ORDERED: ceFAZolin SODIUM 1 GM VIAL IVPB ONE (10:27)
[2020-12-27] MEDS ORDERED: DEXMEDETOMIDINE HCL 200 MCG/2 ML IVPB ONE (10:30)
[2020-12-27] MEDS ORDERED: LIDOCAINE HCL 1%, 10 MG/ML (20ML VIAL) NR ONE ×2 (10:54)
[2020-12-27] MEDS ORDERED: ONDANSETRON 4 MG/2 ML VIAL IVPUSH PRN (11:20)
[2020-12-27] MEDS ORDERED: ACETAMINOPHEN 1000 MG/100 ML VIAL (NON FORMULARY) IVPB PRN (11:20)
[2020-12-27] MEDS ORDERED: SODIUM CHLORIDE 1,000 ML IV SCH (11:30)
[2020-12-27] MEDS ORDERED: hydrALAZINE HCL 20 MG/ML VIAL IVPUSH PRN (11:33)
[2020-12-27] MEDS ORDERED: hydrALAZINE HCL 20 MG/ML VIAL ONE (11:39)
[2020-12-27 12:38] VITALS: TEMP 97.7
[2020-12-27 14:32] VITALS: BP 130/70; PULSE 66
== END 2020-12-27 14:20 | disposition home or self-care (01) ==
LOC: JASU-SURG 04:23
PROVIDERS: ATTEND Surgery Vascular Surgery
PROC: 057F3ZZ Dilation of Left Cephalic Vein, Percutaneous Approach (ICD-10-PCS; principal; 2020-12-27 10:00)
DX: T82.858A Stenosis of other vascular prosthetic devices, implants and grafts, initial encounter (principal); E11.22 Type 2 diabetes mellitus with diabetic chronic kidney disease; I12.0 Hypertensive chronic kidney disease with stage 5 chronic kidney disease or end stage renal disease; N18.6 End stage renal disease; Z99.2 Dependence on renal dialysis
CPT/HCPCS: 76000-TC-FY; 82962; 94760; J1644

== ENCOUNTER 2021-01-10 09:16 | Emergency (ER) | payer MEDICARE, OTHER ==
[2021-01-10 09:24] VITALS: TEMP 97.7; BMI 49.4
[2021-01-10] MEDS ORDERED: LOSARTAN POTASSIUM 50 MG TABLET PO ONE (10:16)
[2021-01-10] MEDS ORDERED: hydrALAZINE HCL 50 MG TABLET (FP) PO ONE (10:17)
[2021-01-10] MEDS ORDERED: amLODIPine BESYLATE 10 MG TABLET (FP) PO ONE (10:17)
[2021-01-10] MEDS ORDERED: TORSEMIDE 20 MG TABLET (FP) PO ONE (10:18)
[2021-01-10] MEDS ORDERED: amLODIPine BESYLATE 5 MG TABLET (FP) ONE (10:27)
[2021-01-10] MEDS ORDERED: HYDROCHLOROTHIAZIDE 25 MG TABLET (FP) ONE (10:28)
[2021-01-10] MEDS ORDERED: LOSARTAN POTASSIUM 50 MG TABLET ONE (10:28)
[2021-01-10] MEDS ORDERED: NIFEdipine E.R. 30 MG TABLET ONE (10:28)
[2021-01-10 11:32] LABS: HEMATOCRIT 30.6 % (35.4-49); HEMOGLOBIN 10.1 GM/dL (11.7-16.9); MCH 30.2 pg (25.7-33.7); MEAN CELL VOLUME 91.7 fl (80-96); MEAN PLT VOLUME 8.8 fl (7.5-11.1); PLATELET COUNT 221 K/MM3 (134-434); RBC 3.33 M/mm3 (4.00-5.60); RDW 14.7 % (11.9-15.9); WHITE BLOOD COUNT 7.8 K/mm3 (4.0-10.0)
[2021-01-10 11:56] LABS: CHLORIDE 103 mmol/L (98-107); SODIUM 137 mmol/L (136-145)
[2021-01-10 11:58] LABS: CALCIUM 8.5 mg/dL (8.5-10.1)
[2021-01-10 11:59] LABS: ANION GAP 4 MMOL/L (8-16); BLOOD UREA NITROGEN 56.2 mg/dL (7-18); CO2 30 mmol/L (21-32); GLUCOSE,RANDOM 187 mg/dL (74-106)
[2021-01-10 12:02] LABS: CREATININE 4.1 mg/dL (0.55-1.3); SGOT/AST 45 U/L (15-37); SGPT/ALT 31 U/L (13-61)
[2021-01-10 12:04] LABS: BILIRUBIN,TOTAL 0.2 mg/dL (0.2-1); TOT PROT 7.8 g/dl (6.4-8.2)
[2021-01-10 12:05] LABS: ALK PHOS 89 U/L (45-117)
[2021-01-10 12:08] LABS: N-TERMINAL BNP 626.4 pg/ml (5-125)
[2021-01-10 12:17] VITALS: BP 182/86; PULSE 67
[2021-01-11] MEDS ORDERED: NIFEdipine E.R 60 MG TABLET PO ONE (10:17)
== END 2021-01-10 12:30 | disposition home or self-care (01) ==
LOC: JER 09:16
DX: I10 Essential (primary) hypertension (principal); E11.621 Type 2 diabetes mellitus with foot ulcer; E11.51 Type 2 diabetes mellitus with diabetic peripheral angiopathy without gangrene; L97.522 Non-pressure chronic ulcer of other part of left foot with fat layer exposed
CPT/HCPCS: 36415; 71045-TC-FY; 80053; 82550; 82553; 83880; 84484; 85027; 93005; 93010; 99285-25; G0463-25

== ENCOUNTER 2021-04-03 09:23 | Inpatient (IN) | payer MEDICARE, OTHER ==
[2021-04-03 11:10] LABS: BASO % 1.1 % (0-2.0); EOS % 5.5 % (0-4.5); HEMATOCRIT 29.6 % (35.4-49); HEMOGLOBIN 9.7 GM/dL (11.7-16.9); LYMPH % 25.1 % (8-40); MCH 30.2 pg (25.7-33.7); MEAN CELL VOLUME 91.7 fl (80-96); MONO % 8.8 % (3.8-10.2); NEUT % 59.5 % (42.8-82.8); PLATELET COUNT 229 10^3/uL (134-434); RBC 3.22 M/mm3 (4.00-5.60); RDW 14.4 % (11.9-15.9)
[2021-04-03 11:17] LABS: INR 0.92 (0.83-1.09); PROTHROMBIN TIME (PATIENT) 11.2 SEC (9.7-13.0)
[2021-04-03 11:20] LABS: ACTIVATED PTT 29.3 SECONDS (25.2-36.5)
[2021-04-03 11:24] LABS: EPI CELLS 1 /uL (0-25.1); HYALINE CASTS 1 /uL (0-3.1); URINE APPEARANCE CLEAR; URINE BACTERIA 3 /uL (0-1359); URINE BILIRUBIN NEGATIVE (NEGATIVE); URINE COLOR YELLOW; URINE GLUCOSE (UA) NEGATIVE (NEGATIVE); URINE KETONE NEGATIVE (NEGATIVE); URINE LEUK ESTERASE NEGATIVE (NEGATIVE); URINE NITRITE NEGATIVE (NEGATIVE); URINE PROTEIN 2+ (NEGATIVE); URINE RBC 8 /uL (0-23.9); URINE UROBILINOGEN 0.2 mg/dL (0.2-1.0); URINE WBC 2 /uL (0-25.8)
[2021-04-03 11:39] LABS: CALCIUM 8.5 mg/dL (8.5-10.1)
[2021-04-03 11:40] LABS: ALBUMIN 3.2 g/dl (3.4-5.0); MAGNESIUM 2.6 mg/dL (1.8-2.4)
[2021-04-03 11:43] LABS: CREATININE 5.2 mg/dL (0.55-1.3); PHOSPHOROUS 4.1 mg/dL (2.5-4.9)
[2021-04-03 11:45] LABS: BILIRUBIN,TOTAL 0.2 mg/dL (0.2-1); TOT PROT 8.4 g/dl (6.4-8.2)
[2021-04-03] MEDS ORDERED: HEPARIN NA (PORCINE) 5,000 UNITS/ML 1ML VIAL IV ONE (15:00)
[2021-04-03] MEDS ORDERED: EPOETIN ALFA-EPBX 10,000 UNIT/ML VIAL IVPUSH ONE (16:00)
[2021-04-03] MEDS ORDERED: SODIUM CHLORIDE 250 ML IV PRN (16:00)
[2021-04-03] MEDS: HEPARIN NA (PORCINE) 5,000 UNITS/ML 1ML VIAL IV SCH ×3 (16:00→18:00)
[2021-04-03] MEDS: INSULIN SLIDING SCALE (NOVOLOG) 1 VIAL SQ SCH ×2 (18:19→21:03)
[2021-04-04] MEDS ORDERED: HEPARIN NA (PORCINE) 5,000 UNITS/ML 1ML VIAL SQ SCH ×2 (02:00→22:00)
[2021-04-04] MEDS ORDERED: hydrALAZINE HCL 50 MG TABLET (FP) PO SCH (06:00)
[2021-04-04] MEDS: INSULIN SLIDING SCALE (NOVOLOG) 1 VIAL SQ SCH ×4 (06:02→21:42)
[2021-04-04] MEDS ORDERED: LEVOTHYROXINE NA 125 MCG TABLET (FP) PO SCH (07:00)
[2021-04-04] MEDS ORDERED: ceFAZolin SODIUM 1 GM VIAL IVPB ONE (09:40)
[2021-04-04] MEDS ORDERED: ONDANSETRON 4 MG/2 ML VIAL IVPUSH PRN ×2 (09:58→11:56)
[2021-04-04] MEDS ORDERED: FERROUS SO4 325 MG TABLET (FP) PO SCH (10:00)
[2021-04-04] MEDS ORDERED: ALLOPURINOL 100 MG TABLET (FP) PO SCH (10:00)
[2021-04-04] MEDS ORDERED: SODIUM CHLORIDE 1,000 ML IV SCH ×2 (10:00→11:56)
[2021-04-04] MEDS ORDERED: DOCUSATE SODIUM 100 MG CAPSULE (FP) PO SCH (10:00)
[2021-04-04] MEDS ORDERED: LABETALOL HCL 100 MG TABLET (FP) PO SCH (10:00)
[2021-04-04] MEDS ORDERED: PNEUMOC 13-VAL CONJ-DIP CRM/PF 0.5 ML DISP.SYRIN IM ONE (10:00)
[2021-04-04] MEDS ORDERED: NIFEdipine E.R 60 MG TABLET PO SCH (10:00)
[2021-04-04] MEDS ORDERED: HEPARIN NA (PORCINE) 1,000 UNITS/ML 10ML M-D VIAL SQ ONE ×2 (10:02→10:40)
[2021-04-04] MEDS ORDERED: SODIUM CHLORIDE 250 ML IV PRN ×3 (10:52→11:56)
[2021-04-04 12:46] LABS: BASO % 0.9 % (0-2.0); HEMATOCRIT 29.9 % (35.4-49); HEMOGLOBIN 9.7 GM/dL (11.7-16.9); LYMPH % 24.8 % (8-40); MCHC 32.5 g/dl (32.0-35.9); MEAN CELL VOLUME 92.3 fl (80-96); MONO % 6.8 % (3.8-10.2); NEUT % 63.5 % (42.8-82.8); PLATELET COUNT 230 10^3/uL (134-434); RBC 3.24 M/mm3 (4.00-5.60); RDW 14.5 % (11.9-15.9); WHITE BLOOD COUNT 8.4 K/mm3 (4.0-10.0)
[2021-04-04 13:05] LABS: BLOOD UREA NITROGEN 81.9 mg/dL (7-18)
[2021-04-04 13:06] LABS: MAGNESIUM 2.3 mg/dL (1.8-2.4)
[2021-04-04 13:09] LABS: CREATININE 4.7 mg/dL (0.55-1.3); PHOSPHOROUS 4.8 mg/dL (2.5-4.9)
[2021-04-04] MEDS: hydrALAZINE HCL 50 MG TABLET (FP) PO SCH ×2 (15:45→21:39)
[2021-04-04 16:54] VITALS: BMI 48.2
[2021-04-04] MEDS: DOCUSATE SODIUM 100 MG CAPSULE (FP) PO SCH (21:50)
[2021-04-04] MEDS: HEPARIN NA (PORCINE) 5,000 UNITS/ML 1ML VIAL SQ SCH (21:50)
[2021-04-05] MEDS: HEPARIN NA (PORCINE) 5,000 UNITS/ML 1ML VIAL SQ SCH (05:10)
[2021-04-05] MEDS: hydrALAZINE HCL 50 MG TABLET (FP) PO SCH (05:42)
[2021-04-05] MEDS: INSULIN SLIDING SCALE (NOVOLOG) 1 VIAL SQ SCH ×2 (06:21→12:46)
[2021-04-05] MEDS ORDERED: LEVOTHYROXINE NA 125 MCG TABLET (FP) PO SCH (07:00)
[2021-04-05] MEDS ORDERED: NIFEdipine E.R 60 MG TABLET PO SCH (10:00)
[2021-04-05] MEDS ORDERED: FERROUS SO4 325 MG TABLET (FP) PO SCH (10:00)
[2021-04-05] MEDS ORDERED: LABETALOL HCL 100 MG TABLET (FP) PO SCH (10:00)
[2021-04-05] MEDS ORDERED: ALLOPURINOL 100 MG TABLET (FP) PO SCH (10:00)
[2021-04-05] MEDS: DOCUSATE SODIUM 100 MG CAPSULE (FP) PO SCH (10:12)
[2021-04-05 10:21] VITALS: BP 125/68; PULSE 68; TEMP 98.3
[2021-04-05 10:58] LABS: BASO % 0.8 % (0-2.0); EOS % 3.7 % (0-4.5); HEMATOCRIT 29.4 % (35.4-49); HEMOGLOBIN 9.8 GM/dL (11.7-16.9); LYMPH % 21.5 % (8-40); MCH 30.4 pg (25.7-33.7); MCHC 33.4 g/dl (32.0-35.9); MEAN CELL VOLUME 91.1 fl (80-96); MEAN PLT VOLUME 8.9 fl (7.5-11.1); MONO % 7.8 % (3.8-10.2); NEUT % 66.2 % (42.8-82.8); PLATELET COUNT 228 10^3/uL (134-434); RBC 3.22 M/mm3 (4.00-5.60); RDW 14.5 % (11.9-15.9)
[2021-04-05 11:41] LABS: CALCIUM 8.1 mg/dL (8.5-10.1)
[2021-04-05 11:42] LABS: BLOOD UREA NITROGEN 79.7 mg/dL (7-18); MAGNESIUM 2.4 mg/dL (1.8-2.4)
[2021-04-05 11:45] LABS: CREATININE 4.6 mg/dL (0.55-1.3)
[2021-04-05 11:46] LABS: BILIRUBIN,TOTAL 0.2 mg/dL (0.2-1); TOT PROT 8.3 g/dl (6.4-8.2)
== END 2021-04-05 14:02 | disposition home or self-care (01) | DRG 252 ==
LOC: JER 09:23 → JERBED 10:32 → J5S 17:40
PROVIDERS: ADMIT Internal Medicine; ATTEND Internal Medicine
PROC: 0JH63XZ Insertion of Tunneled Vascular Access Device into Chest Subcutaneous Tissue and Fascia, Percutaneous Approach (ICD-10-PCS; 2021-04-04)
PROC: 3E03317 Introduction of Other Thrombolytic into Peripheral Vein, Percutaneous Approach (ICD-10-PCS; 2021-04-04)
PROC: 05HM33Z Insertion of Infusion Device into Right Internal Jugular Vein, Percutaneous Approach (ICD-10-PCS; 2021-04-04)
PROC: B513ZZA Fluoroscopy of Right Jugular Veins, Guidance (ICD-10-PCS; 2021-04-04)
PROC: 5A1D70Z Performance of Urinary Filtration, Intermittent, Less than 6 Hours Per Day (ICD-10-PCS; 2021-04-04)
PROC: 067Y3ZZ Dilation of Lower Vein, Percutaneous Approach (ICD-10-PCS; principal; 2021-04-04 15:30)
DX: I13.2 Hypertensive heart and chronic kidney disease with heart failure and with stage 5 chronic kidney disease, or end stage renal disease (principal); N18.6 End stage renal disease; E11.9 Type 2 diabetes mellitus without complications; I50.9 Heart failure, unspecified; E03.9 Hypothyroidism, unspecified; R56.9 Unspecified convulsions; Z99.2 Dependence on renal dialysis; E87.70 Fluid overload, unspecified; D63.1 Anemia in chronic kidney disease; Z79.4 Long term (current) use of insulin
CPT/HCPCS: 11042; 36415; 71045-TC-FY; 71046-TC-FY; 76000-TC-FY; 80048; 80053; 81003; 82962; 83735; 84100; 85025; 85610; 85730; 86704; 86705; 86706; 86708; 86709; 86803; 86850; 86900; 86901; 87086; 87340; 87517; 93005; 93010; 94760; 99285-25; A6022; C9803; J1644; Q5106; U0003; U0005

== ENCOUNTER 2021-07-25 05:32 | Day surgery (SDC) | payer MEDICARE, OTHER ==
[2021-07-24 08:43] VITALS: BMI 45.4
[2021-07-25] MEDS ORDERED: PROPOFOL 20 ML ONE ×2 (08:22)
[2021-07-25] MEDS ORDERED: MIDAZOLAM HCL 2 MG/2 ML SINGLE DOSE VIAL ONE (08:22)
[2021-07-25] MEDS ORDERED: HEPARIN NA (PORCINE) 5,000 UNITS/ML 1ML VIAL ONE ×2 (08:59→09:40)
[2021-07-25] MEDS ORDERED: ceFAZolin SODIUM 1 GM VIAL ONE (09:31)
[2021-07-25] MEDS ORDERED: ceFAZolin 2 GRAM PREMIX BAG IVPB ONE (09:32)
[2021-07-25] MEDS ORDERED: LIDOCAINE HCL 1%, 10 MG/ML (20ML VIAL) NR ONE (09:33)
[2021-07-25] MEDS ORDERED: IOVERSOL 320 MG/ML ML IV ONE (09:35)
[2021-07-25] MEDS ORDERED: HEPARIN NA (PORCINE) 5,000 UNITS/ML 1ML VIAL SQ ONE (09:40)
[2021-07-25] MEDS ORDERED: SODIUM CHLORIDE 1,000 ML IV SCH (10:45)
[2021-07-25 12:16] VITALS: BP 100/59; PULSE 61; TEMP 98.5
== END 2021-07-25 12:18 | disposition home or self-care (01) ==
LOC: JASU-SURG 05:32
PROVIDERS: ATTEND Surgery Vascular Surgery
PROC: 037 Upper Arteries, Dilation (ICD-10-PCS; principal; 2021-07-25 09:00)
DX: T82.858A Stenosis of other vascular prosthetic devices, implants and grafts, initial encounter (principal); I12.9 Hypertensive chronic kidney disease with stage 1 through stage 4 chronic kidney disease, or unspecified chronic kidney disease; E11.22 Type 2 diabetes mellitus with diabetic chronic kidney disease; N18.9 Chronic kidney disease, unspecified
CPT/HCPCS: 36415; 76000-TC-FY; 82962; 84132; 94760; J1644

== ENCOUNTER 2021-08-19 11:49 | Observation (INO) | payer MEDICARE, OTHER ==
[2021-08-19 11:57] VITALS: BP 157/74; PULSE 76; TEMP 97.5; BMI 45.3
[2021-08-19 14:00] LABS: BASO % 1.1 % (0-2.0); EOS % 6.3 % (0-4.5); HEMATOCRIT 33.1 % (35.4-49); HEMOGLOBIN 10.1 GM/dL (11.7-16.9); LYMPH % 24.4 % (8-40); MCHC 30.6 g/dl (32.0-35.9); MEAN CELL VOLUME 91.4 fl (80-96); MEAN PLT VOLUME 8.2 fl (7.5-11.1); MONO % 8.3 % (3.8-10.2); NEUT % 59.9 % (42.8-82.8); PLATELET COUNT 345 10^3/uL (134-434); RBC 3.62 M/mm3 (4.00-5.60); RDW 15.6 % (11.9-15.9); WHITE BLOOD COUNT 7.2 K/mm3 (4.0-10.0)
[2021-08-19 14:26] LABS: CHLORIDE 107 mmol/L (98-107); SODIUM 140 mmol/L (136-145)
[2021-08-19 14:29] LABS: ALBUMIN 2.8 g/dl (3.4-5.0); ANION GAP 6 MMOL/L (8-16); BLOOD UREA NITROGEN 69.6 mg/dL (7-18); CALCIUM 8.4 mg/dL (8.5-10.1); CO2 27 mmol/L (21-32); GLUCOSE,RANDOM 137 mg/dL (74-106)
[2021-08-19 14:30] LABS: MAGNESIUM 2.5 mg/dL (1.8-2.4)
[2021-08-19 14:32] LABS: PHOSPHOROUS 4.3 mg/dL (2.5-4.9); SGPT/ALT 20 U/L (13-61)
[2021-08-19 14:33] LABS: SGOT/AST 42 U/L (15-37)
[2021-08-19 14:34] LABS: BILIRUBIN,TOTAL 0.4 mg/dL (0.2-1); TOT PROT 8.2 g/dl (6.4-8.2)
[2021-08-19 14:35] LABS: ALK PHOS 63 U/L (45-117)
[2021-08-19 14:36] LABS: CREATININE 7.9 mg/dL (0.55-1.3)
[2021-08-19] MEDS ORDERED: SODIUM CHLORIDE 250 ML IV PRN (14:40)
[2021-08-19] MEDS ORDERED: hydrALAZINE HCL 50 MG TABLET (FP) PO SCH (22:00)
[2021-08-20] MEDS ORDERED: LEVOTHYROXINE NA 125 MCG TABLET (FP) PO SCH (07:00)
[2021-08-20] MEDS ORDERED: SOTROVIMAB 500 MG in SODIUM CHLORIDE 100 ML IVPB ONE (08:40)
[2021-08-20] MEDS ORDERED: amLODIPine BESYLATE 10 MG TABLET (FP) PO SCH (10:00)
[2021-08-20] MEDS ORDERED: ALLOPURINOL 100 MG TABLET (FP) PO SCH (10:00)
== END 2021-08-19 20:20 | disposition left against medical advice (07) ==
LOC: JER 11:49 → JERBED 15:49
PROVIDERS: ADMIT Internal Medicine; ATTEND Internal Medicine
DX: I12.0 Hypertensive chronic kidney disease with stage 5 chronic kidney disease or end stage renal disease (principal); N18.6 End stage renal disease; Z91.15 Patient's noncompliance with renal dialysis; E11.22 Type 2 diabetes mellitus with diabetic chronic kidney disease; Z99.2 Dependence on renal dialysis; Z79.4 Long term (current) use of insulin; D64.89 Other specified anemias; R56.9 Unspecified convulsions; Z87.891 Personal history of nicotine dependence; J40 Bronchitis, not specified as acute or chronic; N28.89 Other specified disorders of kidney and ureter; E87.70 Fluid overload, unspecified; E66.01 Morbid (severe) obesity due to excess calories; Z68.42 Body mass index [BMI] 45.0-49.9, adult
CPT/HCPCS: 36415; 71045-TC-FY; 80053; 83735; 84100; 85025; 93005; 93010; 99285-25; C9803; G0378; U0003; U0005

== ENCOUNTER 2021-10-17 04:17 | Day surgery (SDC) | payer MEDICARE, OTHER ==
[2021-10-16 11:45] VITALS: BMI 45.8
[2021-10-17] MEDS ORDERED: HEPARIN NA (PORCINE) 5,000 UNITS/ML 1ML VIAL ONE (10:18)
[2021-10-17] MEDS ORDERED: LIDOCAINE HCL 1%, 10 MG/ML (20ML VIAL) ONE (10:18)
[2021-10-17] MEDS ORDERED: PROPOFOL 20 ML ONE (12:57)
[2021-10-17] MEDS ORDERED: ceFAZolin SODIUM 1 GM VIAL ONE (12:58)
[2021-10-17] MEDS ORDERED: SUCCINYLCHOLINE CHLORIDE 200 MG/10 ML SYRINGE ONE (12:58)
[2021-10-17] MEDS ORDERED: MIDAZOLAM HCL 2 MG/2 ML SINGLE DOSE VIAL ONE (12:58)
[2021-10-17] MEDS ORDERED: ceFAZolin SODIUM 1 GM VIAL IVPB ONE (13:02)
[2021-10-17] MEDS ORDERED: LIDOCAINE HCL 1%, 10 MG/ML (50 mL VIAL) INF ONE (13:14)
[2021-10-17] MEDS ORDERED: oxyCODONE HCL 5 MG TABLET PO PRN (13:50)
[2021-10-17] MEDS ORDERED: ONDANSETRON 4 MG/2 ML VIAL IVPUSH PRN (13:50)
[2021-10-17 16:08] VITALS: BP 111/55; PULSE 52; TEMP 97.6
== END 2021-10-17 16:39 | disposition home or self-care (01) ==
LOC: JASU-SURG 04:17
PROVIDERS: ATTEND Surgery Vascular Surgery
PROC: 03783ZZ Dilation of Left Brachial Artery, Percutaneous Approach (ICD-10-PCS; principal; 2021-10-17 11:00)
DX: T82.858A Stenosis of other vascular prosthetic devices, implants and grafts, initial encounter (principal); I12.0 Hypertensive chronic kidney disease with stage 5 chronic kidney disease or end stage renal disease; E11.22 Type 2 diabetes mellitus with diabetic chronic kidney disease; N18.6 End stage renal disease; Z99.2 Dependence on renal dialysis; Z79.4 Long term (current) use of insulin
CPT/HCPCS: 36415; 76000-TC-FY; 82962; 84132; 94760; J1644

== ENCOUNTER 2021-11-28 09:56 | Inpatient (IN) | payer MEDICARE, OTHER ==
[2021-11-28] MEDS ORDERED: DEXTROSE 50%-WATER - 25 GM/50 ML VIAL IVPUSH ONE ×2 (10:27→10:34)
[2021-11-28] MEDS ORDERED: INSULIN REGULAR HUMAN 100 UNITS/ML *VIAL IVPUSH ONE (10:34)
[2021-11-28] MEDS ORDERED: CALCIUM GLUCONATE 10% - 1,000 MG/10 ML VIAL IVPUSH ONE (10:34)
[2021-11-28] MEDS ORDERED: SODIUM BICARBONATE 8.4% 50 MEQ/50 ML DISP.SYRIN IVPUSH ONE (10:35)
[2021-11-28] MEDS ORDERED: SODIUM ZIRCONIUM CYCLOSILICATE (LOKELMA) 5 GM PACKET ONE ×2 (10:35→11:02)
[2021-11-28] MEDS ORDERED: SODIUM ZIRCONIUM CYCLOSILICATE (LOKELMA) 5 GM PACKET PO ONE (10:35)
[2021-11-28] MEDS ORDERED: CALCIUM GLUCONATE 10% - 1,000 MG/10 ML VIAL ONE (10:36)
[2021-11-28] MEDS ORDERED: DEXTROSE 50%-WATER 25 GM/50 ML DISP.SYRIN ONE (10:36)
[2021-11-28] MEDS ORDERED: SODIUM BICARBONATE 8.4% - 150 ML ONE (10:36)
[2021-11-28 10:44] LABS: BASO % 0.8 % (0-2.0); EOS % 6.2 % (0-4.5); HEMATOCRIT 26.7 % (35.4-49); HEMOGLOBIN 8.5 GM/dL (11.7-16.9); LYMPH % 26.6 % (8-40); MCHC 31.6 g/dl (32.0-35.9); MEAN CELL VOLUME 94.6 fl (80-96); MEAN PLT VOLUME 9.6 fl (7.5-11.1); MONO % 9.6 % (3.8-10.2); NEUT % 56.8 % (42.8-82.8); PLATELET COUNT 183 10^3/uL (134-434); RBC 2.82 M/mm3 (4.00-5.60); RDW 16.5 % (11.9-15.9); WHITE BLOOD COUNT 4.4 K/mm3 (4.0-10.0)
[2021-11-28 10:51] LABS: INR 1.07 (0.83-1.09); PROTHROMBIN TIME (PATIENT) 12.3 SEC (9.7-13.0)
[2021-11-28 10:54] LABS: ACTIVATED PTT 26.6 SECONDS (25.2-36.5)
[2021-11-28 10:56] LABS: VENOUS BASE EXCESS -9.3 mmol/L (-2-2); VENOUS O2 SATURATION 83.7 % (70-80); VENOUS PCO2 37.2 mmHg (38-52); VENOUS PH 7.273 (7.310-7.410)
[2021-11-28 11:03] LABS: CHLORIDE 107 mmol/L (98-107); SODIUM 138 mmol/L (136-145)
[2021-11-28 11:07] LABS: ALBUMIN 3.1 g/dl (3.4-5.0); CALCIUM 7.8 mg/dL (8.5-10.1); CO2 18 mmol/L (21-32); GLUCOSE,RANDOM 51 mg/dL (74-106)
[2021-11-28 11:10] LABS: SGOT/AST 25 U/L (15-37); SGPT/ALT 30 U/L (13-61)
[2021-11-28 11:11] LABS: ALK PHOS 64 U/L (45-117); TOT PROT 7.8 g/dl (6.4-8.2)
[2021-11-28 11:12] LABS: BILIRUBIN,TOTAL 0.5 mg/dL (0.2-1)
[2021-11-28 11:14] LABS: ANION GAP 13 MMOL/L (8-16); CREATININE 14.4 mg/dL (0.55-1.3)
[2021-11-28] MEDS ORDERED: SODIUM CHLORIDE 250 ML IV PRN (13:00)
[2021-11-28] MEDS: ALBUMIN HUMAN 25% 12.5 GM/50 ML VIAL IV SCH ×4 (13:15→17:07)
[2021-11-28 14:28] VITALS: BMI 46.9
[2021-11-28] MEDS: INSULIN SLIDING SCALE (NOVOLOG) 1 VIAL SQ SCH ×2 (17:27→21:56)
[2021-11-28] MEDS: DEXAMETHASONE SOD PHOSPHATE 10 MG/1 ML VIAL IVPUSH SCH (18:59)
[2021-11-29] MEDS: HEPARIN NA (PORCINE) 5,000 UNITS/ML 1ML VIAL SQ SCH ×3 (05:53→21:30)
[2021-11-29] MEDS ORDERED: LEVOTHYROXINE NA 125 MCG TABLET (FP) PO SCH (06:30)
[2021-11-29] MEDS: INSULIN SLIDING SCALE (NOVOLOG) 1 VIAL SQ SCH ×4 (06:34→21:30)
[2021-11-29 07:32] LABS: BASO % 0.1 % (0-2.0); HEMATOCRIT 28.3 % (35.4-49); LYMPH % 9.5 % (8-40); MCH 30.1 pg (25.7-33.7); MEAN CELL VOLUME 94.1 fl (80-96); MEAN PLT VOLUME 9.4 fl (7.5-11.1); NEUT % 89.4 % (42.8-82.8); PLATELET COUNT 195 10^3/uL (134-434); RDW 16.5 % (11.9-15.9); WHITE BLOOD COUNT 4.8 K/mm3 (4.0-10.0)
[2021-11-29 07:47] LABS: CHLORIDE 99 mmol/L (98-107); SODIUM 135 mmol/L (136-145)
[2021-11-29] MEDS ORDERED: SODIUM CHLORIDE 250 ML IV PRN (07:51)
[2021-11-29 07:54] LABS: CALCIUM 7.8 mg/dL (8.5-10.1); GLUCOSE,RANDOM 265 mg/dL (74-106)
[2021-11-29 07:55] LABS: ALBUMIN 3.5 g/dl (3.4-5.0); ANION GAP 12 MMOL/L (8-16); CO2 25 mmol/L (21-32); MAGNESIUM 2.5 mg/dL (1.8-2.4)
[2021-11-29 07:58] LABS: PHOSPHOROUS 7.2 mg/dL (2.5-4.9); SGOT/AST 18 U/L (15-37); SGPT/ALT 25 U/L (13-61)
[2021-11-29 07:59] LABS: TOT PROT 8.2 g/dl (6.4-8.2)
[2021-11-29 08:00] LABS: BILIRUBIN,TOTAL 0.5 mg/dL (0.2-1)
[2021-11-29 08:01] LABS: ALK PHOS 67 U/L (45-117); CREATININE 9.1 mg/dL (0.55-1.3)
[2021-11-29] MEDS ORDERED: PANTOPRAZOLE SODIUM 40 MG VIAL IVPUSH SCH (10:00)
[2021-11-29] MEDS: DEXAMETHASONE SOD PHOSPHATE 10 MG/1 ML VIAL IVPUSH SCH (11:50)
[2021-11-29] MEDS: SEVELAMER CARBONATE 800 MG TAB (FP) PO SCH (17:30)
[2021-11-30] MEDS: INSULIN SLIDING SCALE (NOVOLOG) 1 VIAL SQ SCH ×4 (06:52→22:07)
[2021-11-30] MEDS: LEVOTHYROXINE NA 125 MCG TABLET (FP) PO SCH (06:52)
[2021-11-30] MEDS: HEPARIN NA (PORCINE) 5,000 UNITS/ML 1ML VIAL SQ SCH ×3 (06:52→22:06)
[2021-11-30] MEDS: SEVELAMER CARBONATE 800 MG TAB (FP) PO SCH ×3 (08:10→16:32)
[2021-11-30] MEDS: TORSEMIDE 20 MG TABLET (FP) PO SCH (10:59)
[2021-11-30] MEDS: PANTOPRAZOLE SODIUM 40 MG VIAL IVPUSH SCH (11:00)
[2021-11-30] MEDS: DEXAMETHASONE SOD PHOSPHATE 10 MG/1 ML VIAL IVPUSH SCH (11:00)
[2021-11-30] MEDS ORDERED: INSULIN (NOVOLOG) ASPART 100 UNITS/ML 10ML VIAL ONE (11:08)
[2021-11-30 14:25] LABS: BASO % 0.1 % (0-2.0); EOS % 0.1 % (0-4.5); HEMATOCRIT 29.3 % (35.4-49); HEMOGLOBIN 9.3 GM/dL (11.7-16.9); LYMPH % 12.7 % (8-40); MCH 29.7 pg (25.7-33.7); MCHC 31.9 g/dl (32.0-35.9); MEAN CELL VOLUME 93.4 fl (80-96); MEAN PLT VOLUME 9.6 fl (7.5-11.1); MONO % 6.7 % (3.8-10.2); NEUT % 80.4 % (42.8-82.8); PLATELET COUNT 214 10^3/uL (134-434); RBC 3.13 M/mm3 (4.00-5.60); RDW 15.9 % (11.9-15.9); WHITE BLOOD COUNT 7.4 K/mm3 (4.0-10.0)
[2021-11-30 14:34] LABS: CALCIUM 7.8 mg/dL (8.5-10.1)
[2021-11-30 14:35] LABS: ALBUMIN 3.5 g/dl (3.4-5.0); BLOOD UREA NITROGEN 68.5 mg/dL (7-18); MAGNESIUM 2.3 mg/dL (1.8-2.4)
[2021-11-30 14:37] LABS: PHOSPHOROUS 4.6 mg/dL (2.5-4.9)
[2021-11-30 14:38] LABS: CREATININE 7.2 mg/dL (0.55-1.3)
[2021-11-30 14:39] LABS: BILIRUBIN,TOTAL 0.3 mg/dL (0.2-1); TOT PROT 8.6 g/dl (6.4-8.2)
[2021-11-30 14:50] LABS: ERYTHROCYTE SEDIMENTATION RATE 57 mm/hr (0-20)
[2021-11-30] MEDS ORDERED: EPOETIN ALFA-EPBX 10,000 UNIT/ML VIAL IVPUSH ONE (15:00)
[2021-11-30] MEDS ORDERED: SODIUM CHLORIDE 250 ML IV PRN (15:00)
[2021-12-01] MEDS: INSULIN SLIDING SCALE (NOVOLOG) 1 VIAL SQ SCH ×4 (06:24→22:05)
[2021-12-01] MEDS: HEPARIN NA (PORCINE) 5,000 UNITS/ML 1ML VIAL SQ SCH ×3 (06:24→22:05)
[2021-12-01] MEDS: LEVOTHYROXINE NA 125 MCG TABLET (FP) PO SCH (06:24)
[2021-12-01] MEDS: SEVELAMER CARBONATE 800 MG TAB (FP) PO SCH ×3 (08:14→16:54)
[2021-12-01] MEDS: DEXAMETHASONE SOD PHOSPHATE 10 MG/1 ML VIAL IVPUSH SCH (11:00)
[2021-12-01] MEDS: PANTOPRAZOLE SODIUM 40 MG VIAL IVPUSH SCH (11:00)
[2021-12-01] MEDS: TORSEMIDE 20 MG TABLET (FP) PO SCH (11:00)
[2021-12-02] MEDS: HEPARIN NA (PORCINE) 5,000 UNITS/ML 1ML VIAL SQ SCH ×3 (06:17→23:00)
[2021-12-02] MEDS: LEVOTHYROXINE NA 125 MCG TABLET (FP) PO SCH (06:17)
[2021-12-02] MEDS: INSULIN SLIDING SCALE (NOVOLOG) 1 VIAL SQ SCH ×4 (06:19→23:00)
[2021-12-02] MEDS: SEVELAMER CARBONATE 800 MG TAB (FP) PO SCH ×3 (08:41→16:36)
[2021-12-02] MEDS: PANTOPRAZOLE SODIUM 40 MG VIAL IVPUSH SCH (10:16)
[2021-12-02] MEDS: DEXAMETHASONE SOD PHOSPHATE 10 MG/1 ML VIAL IVPUSH SCH (10:16)
[2021-12-02] MEDS: TORSEMIDE 20 MG TABLET (FP) PO SCH (10:16)
[2021-12-02] MEDS ORDERED: SODIUM CHLORIDE 250 ML IV PRN (13:11)
[2021-12-03] MEDS: HEPARIN NA (PORCINE) 5,000 UNITS/ML 1ML VIAL SQ SCH ×2 (06:01→16:45)
[2021-12-03] MEDS: INSULIN SLIDING SCALE (NOVOLOG) 1 VIAL SQ SCH ×3 (06:01→16:51)
[2021-12-03] MEDS: LEVOTHYROXINE NA 125 MCG TABLET (FP) PO SCH (06:01)
[2021-12-03] MEDS: DEXAMETHASONE SOD PHOSPHATE 10 MG/1 ML VIAL IVPUSH SCH (09:07)
[2021-12-03] MEDS: SEVELAMER CARBONATE 800 MG TAB (FP) PO SCH ×4 (09:07→16:55)
[2021-12-03] MEDS: PANTOPRAZOLE SODIUM 40 MG VIAL IVPUSH SCH (09:07)
[2021-12-03] MEDS: TORSEMIDE 20 MG TABLET (FP) PO SCH (09:07)
[2021-12-03] MEDS ORDERED: SODIUM CHLORIDE 250 ML IV PRN (13:01)
[2021-12-03 13:02] VITALS: TEMP 97.8
[2021-12-03] MEDS ORDERED: EPOETIN ALFA-EPBX 10,000 UNIT/ML VIAL IVPUSH ONE (14:00)
[2021-12-03] MEDS ORDERED: CALCIUM ACETATE 667 MG CAPSULE (FP) PO SCH (14:00)
[2021-12-03] MEDS ORDERED: FERROUS SO4 325 MG TABLET (FP) PO SCH (14:00)
[2021-12-03 14:01] LABS: HEMATOCRIT 30.6 % (35.4-49); MCH 30.3 pg (25.7-33.7); MCHC 32.5 g/dl (32.0-35.9); MEAN CELL VOLUME 93.4 fl (80-96); MEAN PLT VOLUME 9.6 fl (7.5-11.1); PLATELET COUNT 235 10^3/uL (134-434); RBC 3.28 M/mm3 (4.00-5.60); RDW 16.2 % (11.9-15.9); WHITE BLOOD COUNT 9.5 K/mm3 (4.0-10.0)
[2021-12-03 14:30] LABS: CALCIUM 8.2 mg/dL (8.5-10.1)
[2021-12-03 14:31] LABS: ALBUMIN 3.5 g/dl (3.4-5.0); BLOOD UREA NITROGEN 82.1 mg/dL (7-18)
[2021-12-03 14:35] LABS: BILIRUBIN,TOTAL 0.2 mg/dL (0.2-1); TOT PROT 7.8 g/dl (6.4-8.2)
[2021-12-03 14:38] LABS: CREATININE 5.9 mg/dL (0.55-1.3)
[2021-12-03 16:58] VITALS: BP 144/78; PULSE 77
== END 2021-12-03 18:27 | disposition home or self-care (01) | DRG 640 ==
LOC: JER 09:56 → JERBED 10:36 → JICU 12:08 → J6S 11-29 23:47
PROVIDERS: ADMIT Internal Medicine Pulmonary Disease; ATTEND Internal Medicine
PROC: 5A1D70Z Performance of Urinary Filtration, Intermittent, Less than 6 Hours Per Day (ICD-10-PCS; principal; 2021-11-28)
PROC: 5A1D70Z Performance of Urinary Filtration, Intermittent, Less than 6 Hours Per Day (ICD-10-PCS; 2021-11-29)
PROC: 5A1D70Z Performance of Urinary Filtration, Intermittent, Less than 6 Hours Per Day (ICD-10-PCS; 2021-11-30)
PROC: 5A1D70Z Performance of Urinary Filtration, Intermittent, Less than 6 Hours Per Day (ICD-10-PCS; 2021-12-03)
DX: E87.70 Fluid overload, unspecified (principal); G93.41 Metabolic encephalopathy; U07.1 COVID-19; N18.6 End stage renal disease; I50.33 Acute on chronic diastolic (congestive) heart failure; I13.2 Hypertensive heart and chronic kidney disease with heart failure and with stage 5 chronic kidney disease, or end stage renal disease; Z68.42 Body mass index [BMI] 45.0-49.9, adult; L97.528 Non-pressure chronic ulcer of other part of left foot with other specified severity; E87.5 Hyperkalemia; E11.22 Type 2 diabetes mellitus with diabetic chronic kidney disease; Z99.2 Dependence on renal dialysis; E87.2 Acidosis; E66.01 Morbid (severe) obesity due to excess calories; E11.649 Type 2 diabetes mellitus with hypoglycemia without coma; D63.1 Anemia in chronic kidney disease; R00.1 Bradycardia, unspecified; E11.51 Type 2 diabetes mellitus with diabetic peripheral angiopathy without gangrene; E11.621 Type 2 diabetes mellitus with foot ulcer
CPT/HCPCS: 15275; 36415; 71045-TC-FY; 72100-TC-FY; 80053; 82803; 82962; 83605; 83735; 84100; 84439; 84443; 84484; 85025; 85027; 85610; 85651; 85730; 86803; 87040; 87340; 93005; 93010; 99285-25; C9803-CS; J1100; J1644; P9047; Q4160; Q5106; U0003; U0005

== ENCOUNTER 2021-12-18 10:27 | Inpatient (IN) | payer MEDICARE, OTHER ==
[2021-12-18] MEDS ORDERED: cefTAZidime PENTAHYDRATE 1 GM/50ML PRE-DOCKED (RESTRICTED TO ID) IVPB ONE (11:17)
[2021-12-18] MEDS ORDERED: VANCOMYCIN 1,000 MG in DEXTROSE 5%-WATER - 250 ML IVPB ONE (11:18)
[2021-12-18 11:49] LABS: EOS % 7.1 % (0-4.5); HEMATOCRIT 28.6 % (35.4-49); HEMOGLOBIN 9.3 GM/dL (11.7-16.9); LYMPH % 22.1 % (8-40); MCH 30.5 pg (25.7-33.7); MCHC 32.5 g/dl (32.0-35.9); MEAN PLT VOLUME 8.7 fl (7.5-11.1); MONO % 7.9 % (3.8-10.2); NEUT % 61.9 % (42.8-82.8); PLATELET COUNT 337 10^3/uL (134-434); RBC 3.04 M/mm3 (4.00-5.60); RDW 16.3 % (11.9-15.9); WHITE BLOOD COUNT 6.3 K/mm3 (4.0-10.0)
[2021-12-18] MEDS ORDERED: cefTAZidime PENTAHYDRATE 1 GM VIAL (RESTRICTED TO ID) ONE (11:53)
[2021-12-18] MEDS ORDERED: VANCOMYCIN 1 GRAM (PRE-DOCKED) 1,000 MG/250 ML BAG IVPB ONE (11:53)
[2021-12-18 12:10] LABS: BLOOD UREA NITROGEN 37.4 mg/dL (7-18); CALCIUM 8.4 mg/dL (8.5-10.1)
[2021-12-18 12:11] LABS: ALBUMIN 3.2 g/dl (3.4-5.0)
[2021-12-18 12:14] LABS: CREATININE 6.4 mg/dL (0.55-1.3)
[2021-12-18 12:16] LABS: BILIRUBIN,TOTAL 0.5 mg/dL (0.2-1)
[2021-12-18 12:28] LABS: ERYTHROCYTE SEDIMENTATION RATE 79 mm/hr (0-20)
[2021-12-18] MEDS ORDERED: CALCIUM ACETATE 667 MG PO SCH (15:30)
[2021-12-18] MEDS: SEVELAMER CARBONATE 800 MG TAB (FP) PO SCH (18:29)
[2021-12-18 18:52] VITALS: BMI 40.6
[2021-12-18] MEDS ORDERED: DEXTROSE 5%-WATER - 50 ML IVPB ONE (21:40)
[2021-12-18] MEDS ORDERED: PIPERACILLIN/TAZOBACTAM 2.25 GM VIAL IVPB ONE (21:40)
[2021-12-18] MEDS ORDERED: PATIENT'S OWN MEDICATION (NON-FORMULARY) (Insulin Glargine,Hum.Rec.Anlog [Basaglar Kwikpen SQ SCH (22:00)
[2021-12-18] MEDS: PIPERACILLIN/TAZOB 2.25 GM 2.25 GM in DEXTROSE 5%-WATER - 50 ML IVPB SCH (22:36)
[2021-12-18] MEDS: INSULIN (LEVEMIR) 100 UNITS/ML UNITS SQ SCH (22:36)
[2021-12-18] MEDS: INSULIN SLIDING SCALE (NOVOLOG) 1 VIAL SQ SCH (22:36)
[2021-12-19] MEDS ORDERED: PIPERACILLIN/TAZOBACTAM 2.25 GM VIAL IVPB ONE ×2 (04:45→12:58)
[2021-12-19] MEDS ORDERED: DEXTROSE 5%-WATER - 50 ML IVPB ONE ×2 (04:45→12:58)
[2021-12-19] MEDS: PIPERACILLIN/TAZOB 2.25 GM 2.25 GM in DEXTROSE 5%-WATER - 50 ML IVPB SCH ×2 (04:59→13:02)
[2021-12-19] MEDS: LEVOTHYROXINE NA 125 MCG TABLET (FP) PO SCH (06:19)
[2021-12-19] MEDS: INSULIN SLIDING SCALE (NOVOLOG) 1 VIAL SQ SCH ×4 (06:25→22:56)
[2021-12-19] MEDS: SEVELAMER CARBONATE 800 MG TAB (FP) PO SCH ×3 (07:55→17:17)
[2021-12-19] MEDS ORDERED: SODIUM CHLORIDE 250 ML IV PRN (09:00)
[2021-12-19] MEDS ORDERED: EPOETIN ALFA-EPBX 10,000 UNIT/ML VIAL IVPUSH ONE (09:00)
[2021-12-19] MEDS ORDERED: FAMOTIDINE 20 MG TABLET PO SCH (10:00)
[2021-12-19 10:46] LABS: HEMATOCRIT 28.2 % (35.4-49); HEMOGLOBIN 9.3 GM/dL (11.7-16.9); MCHC 33.1 g/dl (32.0-35.9); MEAN CELL VOLUME 93.7 fl (80-96); MEAN PLT VOLUME 7.8 fl (7.5-11.1); PLATELET COUNT 274 10^3/uL (134-434); RBC 3.01 M/mm3 (4.00-5.60); RDW 16.1 % (11.9-15.9); WHITE BLOOD COUNT 5.7 K/mm3 (4.0-10.0)
[2021-12-19 11:10] LABS: CALCIUM 8.2 mg/dL (8.5-10.1)
[2021-12-19 11:11] LABS: BLOOD UREA NITROGEN 40.7 mg/dL (7-18)
[2021-12-19 11:14] LABS: BILIRUBIN,TOTAL 0.4 mg/dL (0.2-1); CREATININE 5.9 mg/dL (0.55-1.3); PHOSPHOROUS 3.8 mg/dL (2.5-4.9)
[2021-12-19 11:18] LABS: TOT PROT 7.6 g/dl (6.4-8.2)
[2021-12-19] MEDS: FAMOTIDINE 10 MG TABLET PO SCH (13:02)
[2021-12-19] MEDS: TORSEMIDE 20 MG TABLET (FP) PO SCH (13:03)
[2021-12-19] MEDS: amLODIPine BESYLATE 10 MG TABLET (FP) PO SCH (13:04)
[2021-12-19] MEDS: INSULIN (LEVEMIR) 100 UNITS/ML UNITS SQ SCH ×2 (13:04→22:55)
[2021-12-19] MEDS ORDERED: VANCOMYCIN 1 GM/200 ML PREMIX BAG IVPB ONE (13:39)
[2021-12-20] MEDS: INSULIN SLIDING SCALE (NOVOLOG) 1 VIAL SQ SCH ×5 (06:13→22:18)
[2021-12-20] MEDS: LEVOTHYROXINE NA 125 MCG TABLET (FP) PO SCH (06:13)
[2021-12-20] MEDS: SEVELAMER CARBONATE 800 MG TAB (FP) PO SCH ×3 (10:08→17:33)
[2021-12-20] MEDS: amLODIPine BESYLATE 10 MG TABLET (FP) PO SCH (11:33)
[2021-12-20] MEDS: FAMOTIDINE 10 MG TABLET PO SCH (11:34)
[2021-12-20] MEDS: TORSEMIDE 20 MG TABLET (FP) PO SCH ×2 (11:38→11:39)
[2021-12-20] MEDS: INSULIN (LEVEMIR) 100 UNITS/ML UNITS SQ SCH ×2 (12:40→22:17)
[2021-12-20] MEDS ORDERED: SODIUM CHLORIDE 250 ML IV PRN (15:55)
[2021-12-21] MEDS: LEVOTHYROXINE NA 125 MCG TABLET (FP) PO SCH (06:27)
[2021-12-21] MEDS: INSULIN SLIDING SCALE (NOVOLOG) 1 VIAL SQ SCH ×4 (06:27→21:24)
[2021-12-21] MEDS: SEVELAMER CARBONATE 800 MG TAB (FP) PO SCH ×3 (08:25→17:28)
[2021-12-21 08:27] LABS: HEMATOCRIT 30.5 % (35.4-49); HEMOGLOBIN 9.9 GM/dL (11.7-16.9); MCH 30.4 pg (25.7-33.7); MCHC 32.3 g/dl (32.0-35.9); MEAN CELL VOLUME 94.2 fl (80-96); MEAN PLT VOLUME 7.6 fl (7.5-11.1); PLATELET COUNT 308 10^3/uL (134-434); RBC 3.24 M/mm3 (4.00-5.60); RDW 16.6 % (11.9-15.9); WHITE BLOOD COUNT 6.7 K/mm3 (4.0-10.0)
[2021-12-21 08:40] LABS: CALCIUM 8.6 mg/dL (8.5-10.1)
[2021-12-21 08:41] LABS: BLOOD UREA NITROGEN 50.8 mg/dL (7-18)
[2021-12-21 08:46] LABS: CREATININE 6.5 mg/dL (0.55-1.3)
[2021-12-21] MEDS ORDERED: VANCOMYCIN/WATER FOR INJ (PEG) 1 GM/200 ML BAG IVPB ONE (09:00)
[2021-12-21] MEDS: amLODIPine BESYLATE 10 MG TABLET (FP) PO SCH (11:39)
[2021-12-21] MEDS: FAMOTIDINE 10 MG TABLET PO SCH (11:39)
[2021-12-21] MEDS: TORSEMIDE 20 MG TABLET (FP) PO SCH (11:42)
[2021-12-21] MEDS: INSULIN (LEVEMIR) 100 UNITS/ML UNITS SQ SCH ×3 (12:38→21:25)
[2021-12-21] MEDS ORDERED: INSULIN (LEVEMIR) 100 UNITS/ML UNITS SQ ONE (12:45)
[2021-12-22] MEDS: INSULIN (LEVEMIR) 100 UNITS/ML UNITS SQ SCH (06:09)
[2021-12-22] MEDS: LEVOTHYROXINE NA 125 MCG TABLET (FP) PO SCH (06:09)
[2021-12-22] MEDS: INSULIN SLIDING SCALE (NOVOLOG) 1 VIAL SQ SCH ×2 (06:10→11:34)
[2021-12-22] MEDS ORDERED: INSULIN (LEVEMIR) 100 UNITS/ML UNITS SQ SCH (09:35)
[2021-12-22] MEDS: SEVELAMER CARBONATE 800 MG TAB (FP) PO SCH ×2 (09:48→11:38)
[2021-12-22] MEDS: amLODIPine BESYLATE 10 MG TABLET (FP) PO SCH (09:48)
[2021-12-22] MEDS: FAMOTIDINE 10 MG TABLET PO SCH (09:49)
[2021-12-22] MEDS: TORSEMIDE 20 MG TABLET (FP) PO SCH (10:32)
[2021-12-22 10:54] VITALS: BP 170/78; PULSE 73; TEMP 97.7
[2021-12-22] MEDS ORDERED: metoPROLOL SUCCINATE 25 MG TAB.SR.24H (FP) PO SCH (11:30)
== END 2021-12-22 11:59 | disposition left against medical advice (07) | DRG 299 ==
LOC: JER 10:27 → JERBED 13:16 → J6S 17:55 → J5S 12-19 17:48
PROVIDERS: ADMIT Internal Medicine; ATTEND Internal Medicine
PROC: 5A1D70Z Performance of Urinary Filtration, Intermittent, Less than 6 Hours Per Day (ICD-10-PCS; principal; 2021-12-19)
PROC: 5A1D70Z Performance of Urinary Filtration, Intermittent, Less than 6 Hours Per Day (ICD-10-PCS; 2021-12-21)
DX: E11.51 Type 2 diabetes mellitus with diabetic peripheral angiopathy without gangrene (principal); N18.6 End stage renal disease; L97.528 Non-pressure chronic ulcer of other part of left foot with other specified severity; G40.802 Other epilepsy, not intractable, without status epilepticus; Z68.41 Body mass index [BMI] 40.0-44.9, adult; I13.2 Hypertensive heart and chronic kidney disease with heart failure and with stage 5 chronic kidney disease, or end stage renal disease; I50.32 Chronic diastolic (congestive) heart failure; M86.672 Other chronic osteomyelitis, left ankle and foot; E11.69 Type 2 diabetes mellitus with other specified complication; E66.01 Morbid (severe) obesity due to excess calories; E11.621 Type 2 diabetes mellitus with foot ulcer; E03.9 Hypothyroidism, unspecified; E11.22 Type 2 diabetes mellitus with diabetic chronic kidney disease; I89.0 Lymphedema, not elsewhere classified; E87.5 Hyperkalemia; D63.1 Anemia in chronic kidney disease; G89.29 Other chronic pain; G47.33 Obstructive sleep apnea (adult) (pediatric); L08.9 Local infection of the skin and subcutaneous tissue, unspecified; Z99.2 Dependence on renal dialysis; Z89.422 Acquired absence of other left toe(s)
CPT/HCPCS: 11042; 36415; 73630-TC-LT; 73718-TC-LT; 80048; 80053; 82962; 84100; 85025; 85027; 85651; 86140; 87070; 87186; 87205; 93005; 93010; 97116-GP; 97161-GP; 99285-25; C9803-CS; G0480; Q5106; U0003; U0005

== ENCOUNTER 2022-07-07 05:33 | Day surgery (SDC) | payer MEDICARE, OTHER ==
[2022-07-03 17:20] VITALS: BMI 33.4
[2022-07-07] MEDS ORDERED: LIDOCAINE HCL 1%, 10 MG/ML (20ML VIAL) NR ONE ×3 (13:18→14:32)
[2022-07-07] MEDS ORDERED: HEPARIN NA (PORCINE) 5,000 UNITS/ML 1ML VIAL SQ ONE ×2 (13:19→14:40)
[2022-07-07] MEDS ORDERED: LIDOCAINE HCL 1%, 10 MG/ML (20ML VIAL) ONE (13:34)
[2022-07-07] MEDS ORDERED: HEPARIN NA (PORCINE) 5,000 UNITS/ML 1ML VIAL ONE ×2 (13:34→14:37)
[2022-07-07] MEDS ORDERED: DEXMEDETOMIDINE HCL 200 MCG/2 ML IVPB ONE (13:55)
[2022-07-07] MEDS ORDERED: FENTANYL CITRATE/PF 50 MCG/ML VIAL ONE ×2 (13:56→14:29)
[2022-07-07] MEDS ORDERED: PROPOFOL 20 ML ONE (13:56)
[2022-07-07] MEDS ORDERED: LIDOCAINE HCL 2% 100 MG/5 ML DISP.SYRIN ONE (14:17)
[2022-07-07] MEDS ORDERED: ceFAZolin SODIUM 1 GM VIAL IVPB ONE (14:20)
[2022-07-07] MEDS ORDERED: ceFAZolin SODIUM 1 GM VIAL ONE ×2 (14:23)
[2022-07-07] MEDS ORDERED: ACETAMINOPHEN 325 MG TABLET (FP) PO PRN (15:02)
[2022-07-07] MEDS ORDERED: oxyCODONE HCL 5 MG TABLET PO PRN (15:02)
[2022-07-07] MEDS ORDERED: LACTATED RINGERS SOLUTION 1,000 ML IV SCH (15:15)
[2022-07-07 17:20] VITALS: RESP 18
[2022-07-07 18:14] VITALS: BP 146/82; PULSE 64; TEMP 97.6
== END 2022-07-07 18:30 | disposition home or self-care (01) ==
LOC: JASU-SURG 05:33
PROVIDERS: ATTEND Surgery Vascular Surgery
PROC: 05CY3ZZ Extirpation of Matter from Upper Vein, Percutaneous Approach (ICD-10-PCS; principal; 2022-07-07 14:00)
DX: T82.868A Thrombosis due to vascular prosthetic devices, implants and grafts, initial encounter (principal); Y83.2 Surgical operation with anastomosis, bypass or graft as the cause of abnormal reaction of the patient, or of later complication, without mention of misadventure at the time of the procedure; Y92.9 Unspecified place or not applicable; I12.0 Hypertensive chronic kidney disease with stage 5 chronic kidney disease or end stage renal disease; E11.22 Type 2 diabetes mellitus with diabetic chronic kidney disease; N18.6 End stage renal disease; Z99.2 Dependence on renal dialysis; Z79.4 Long term (current) use of insulin
CPT/HCPCS: 36415; 76000-TC-FY; 82947; 84132; 94760; J1644

== ENCOUNTER 2022-09-19 04:12 | Day surgery (SDC) | payer MEDICARE, OTHER ==
[2022-09-15 12:37] VITALS: BMI 41.1
[~2022-09-19 04:12] MED LIST: HEPARIN NA (PORCINE) 5,000 UNITS/ML 1ML VIAL IV ONE; LIDOCAINE HCL 1%, 10 MG/ML (20ML VIAL) NR ONE
[2022-09-19] MEDS ORDERED: LIDOCAINE HCL 1%, 10 MG/ML (20ML VIAL) ONE (07:37)
[2022-09-19] MEDS ORDERED: HEPARIN NA (PORCINE) 5,000 UNITS/ML 1ML VIAL ONE (07:38)
[2022-09-19] MEDS ORDERED: SUCCINYLCHOLINE CHLORIDE 200 MG/10 ML SYRINGE ONE (07:50)
[2022-09-19] MEDS ORDERED: PROPOFOL 20 ML ONE (07:50)
[2022-09-19] MEDS ORDERED: DEXMEDETOMIDINE HCL 200 MCG/2 ML IVPB ONE (07:58)
[2022-09-19 08:29] LABS: HEMATOCRIT 34.5 % (35.4-49); HEMOGLOBIN 11.3 GM/dL (11.7-16.9); LYMPH % 24.3 % (8-40); MCH 31.4 pg (25.7-33.7); MCHC 32.7 g/dl (32.0-35.9); MEAN PLT VOLUME 8.2 fl (7.5-11.1); MONO % 8.1 % (3.8-10.2); NEUT % 60.6 % (42.8-82.8); PLATELET COUNT 237 10^3/uL (134-434); RBC 3.59 M/mm3 (4.00-5.60); RDW 14.7 % (11.9-15.9)
[2022-09-19 08:30] LABS: PROTHROMBIN TIME (PATIENT) 11.6 SEC (9.7-13.0)
[2022-09-19 08:52] LABS: CALCIUM 8.5 mg/dL (8.5-10.1)
[2022-09-19 08:54] LABS: ALBUMIN 3.3 g/dl (3.4-5.0)
[2022-09-19 08:57] LABS: TOT PROT 8.1 g/dl (6.4-8.2)
[2022-09-19 08:58] LABS: BILIRUBIN,TOTAL 0.3 mg/dL (0.2-1)
[2022-09-19 09:10] LABS: BLOOD UREA NITROGEN 38.4 mg/dL (7-18)
[2022-09-19] MEDS ORDERED: MIDAZOLAM HCL 2 MG/2 ML SINGLE DOSE VIAL ONE (09:12)
[2022-09-19] MEDS ORDERED: LIDOCAINE HCL 1%, 10 MG/ML (20ML VIAL) NR ONE ×2 (09:47)
[2022-09-19] MEDS ORDERED: HEPARIN NA (PORCINE) 5,000 UNITS/ML 1ML VIAL IV ONE (09:47)
[2022-09-19] MEDS ORDERED: ONDANSETRON 4 MG/2 ML VIAL IVPUSH PRN (10:04)
[2022-09-19] MEDS ORDERED: SODIUM CHLORIDE 1,000 ML IV SCH (10:15)
[2022-09-19 10:49] VITALS: RESP 18
[2022-09-19 12:24] VITALS: BP 168/71; PULSE 72; TEMP 98.2
== END 2022-09-19 12:10 | disposition home or self-care (01) ==
LOC: JASU-SURG 04:12
PROVIDERS: ATTEND Surgery Vascular Surgery
PROC: 037 Upper Arteries, Dilation (ICD-10-PCS; principal; 2022-09-19 09:00)
DX: T82.858A Stenosis of other vascular prosthetic devices, implants and grafts, initial encounter (principal)
CPT/HCPCS: 36902; 36907; C2623; 36415; 76000-TC-FY; 80053; 82962; 85025; 85610; 94010; 94760; J1644

== ENCOUNTER 2024-01-22 11:57 | Emergency (ER) | payer MEDICARE, OTHER ==
[2024-01-22] MEDS ORDERED: DEXTROSE 50%-WATER 25 GM/50 ML DISP.SYRIN ONE (12:01)
[2024-01-22] MEDS: DEXTROSE 50%-WATER - 25 GM/50 ML VIAL IVPUSH ONE (12:15)
[2024-01-22 12:53] VITALS: BP 132/59; PULSE 68; RESP 18; TEMP 97.4; BMI 42.9
[2024-01-22 13:21] LABS: BASO % 0.6 % (0-2.0); EOS % 4.5 % (0-4.5); HEMATOCRIT 32.7 % (35.4-49); HEMOGLOBIN 10.8 GM/dL (11.7-16.9); LYMPH % 16.3 % (8-40); MCH 31.6 pg (25.7-33.7); MCHC 32.9 g/dl (32.0-35.9); MEAN CELL VOLUME 96.1 fl (80-96); MEAN PLT VOLUME 8.9 fl (7.5-11.1); MONO % 9.6 % (3.8-10.2); PLATELET COUNT 225 10^3/uL (134-434); RBC 3.41 M/mm3 (4.00-5.60); RDW 14.5 % (11.9-15.9); WHITE BLOOD COUNT 7.9 K/mm3 (4.0-10.0)
[2024-01-22 13:43] LABS: POTASSIUM 3.4 mmol/L (3.5-5.1)
[2024-01-22 13:45] LABS: CALCIUM 9.6 mg/dL (8.5-10.1)
[2024-01-22 13:46] LABS: ALBUMIN 3.4 g/dl (3.4-5.0); BLOOD UREA NITROGEN 44.7 mg/dL (7-18); MAGNESIUM 2.1 mg/dL (1.8-2.4)
[2024-01-22 13:49] LABS: CREATININE 7.3 mg/dL (0.55-1.3); PHOSPHOROUS 3.5 mg/dL (2.5-4.9)
[2024-01-22 13:50] LABS: BILIRUBIN,TOTAL 0.3 mg/dL (0.2-1); TOT PROT 8.1 g/dl (6.4-8.2)
== END 2024-01-22 15:52 | disposition home or self-care (01) ==
LOC: JER 11:57
DX: E11.649 Type 2 diabetes mellitus with hypoglycemia without coma (principal)
CPT/HCPCS: 36415; 71045-TC-FY; 80053; 82962; 83735; 84100; 85025; 93005; 93010; 99285-25

== ENCOUNTER 2024-03-02 12:14 | Inpatient (IN) | payer MEDICARE, OTHER ==
[2024-03-02 12:24] VITALS: BMI 43.6
[2024-03-02 14:36] LABS: BASO % 1.2 % (0-2.0); EOS % 6.7 % (0-4.5); HEMATOCRIT 33.4 % (35.4-49); HEMOGLOBIN 11.1 GM/dL (11.7-16.9); LYMPH % 27.6 % (8-40); MCH 31.8 pg (25.7-33.7); MCHC 33.2 g/dl (32.0-35.9); MEAN CELL VOLUME 95.9 fl (80-96); MEAN PLT VOLUME 9.2 fl (7.5-11.1); MONO % 8.3 % (3.8-10.2); NEUT % 56.2 % (42.8-82.8); PLATELET COUNT 205 10^3/uL (134-434); RBC 3.48 M/mm3 (4.00-5.60); WHITE BLOOD COUNT 7.2 K/mm3 (4.0-10.0)
[2024-03-02 14:51] LABS: POTASSIUM 4.3 mmol/L (3.5-5.1)
[2024-03-02 14:52] LABS: ACTIVATED PTT 29.2 SECONDS (25.2-36.5); INR 0.93 (0.83-1.09); PROTHROMBIN TIME (PATIENT) 10.5 SEC (9.7-13.0)
[2024-03-02 14:53] LABS: ALBUMIN 3.5 g/dl (3.4-5.0); CALCIUM 9.3 mg/dL (8.5-10.1)
[2024-03-02 14:55] LABS: BLOOD UREA NITROGEN 33.2 mg/dL (7-18)
[2024-03-02 14:57] LABS: CREATININE 7.2 mg/dL (0.55-1.3)
[2024-03-02 14:59] LABS: BILIRUBIN,TOTAL 0.2 mg/dL (0.2-1); TOT PROT 8.2 g/dl (6.4-8.2)
[2024-03-02] MEDS ORDERED: CEFTRIAXONE 2 GM/100 ML BAG IVPB ONE (16:50)
[2024-03-02] MEDS: CEFTRIAXONE 2 GM-D5W BAG 2 GM/50 ML BAG IVPB ONE (17:00)
[2024-03-02] MEDS: INSULIN (NOVOLOG) ASPART 100 UNITS/ML 10ML VIAL SQ SCH (17:00)
[2024-03-02 17:06] LABS: CHLORIDE 106 mmol/L (98-107); SODIUM 135 mmol/L (136-145)
[2024-03-02 17:07] LABS: BLOOD UREA NITROGEN 32.6 mg/dL (7-18); CALCIUM 8.9 mg/dL (8.5-10.1); CO2 26 mmol/L (21-32); GLUCOSE,RANDOM 126 mg/dL (74-106)
[2024-03-02 17:08] LABS: ANION GAP 4 mmol/L (4-13); POTASSIUM 7.8 mmol/L (3.5-5.1)
[2024-03-02 17:11] LABS: CREATININE 7.1 mg/dL (0.55-1.3)
[2024-03-02] MEDS: CALCIUM ACETATE 667 MG CAPSULE (FP) PO SCH (20:17)
[2024-03-02] MEDS: INSULIN ASPART SLIDING SCALE (NOVOLOG) 1 VIAL SQ SCH (22:36)
[2024-03-02] MEDS: HEPARIN NA (PORCINE) 5,000 UNITS/ML 1ML VIAL SQ SCH (22:42)
[2024-03-03 06:57] LABS: BASO % 0.8 % (0-2.0); EOS % 6.7 % (0-4.5); HEMOGLOBIN 11.1 GM/dL (11.7-16.9); LYMPH % 23.4 % (8-40); MCH 31.1 pg (25.7-33.7); MCHC 32.6 g/dl (32.0-35.9); MEAN CELL VOLUME 95.4 fl (80-96); MEAN PLT VOLUME 9.3 fl (7.5-11.1); MONO % 9.5 % (3.8-10.2); NEUT % 59.6 % (42.8-82.8); PLATELET COUNT 207 10^3/uL (134-434); RBC 3.56 M/mm3 (4.00-5.60); RDW 14.3 % (11.9-15.9); WHITE BLOOD COUNT 6.9 K/mm3 (4.0-10.0)
[2024-03-03 07:12] LABS: CHLORIDE 104 mmol/L (98-107); POTASSIUM 4.1 mmol/L (3.5-5.1); SODIUM 137 mmol/L (136-145)
[2024-03-03 07:16] LABS: ANION GAP 6 mmol/L (4-13); CO2 26 mmol/L (21-32); GLUCOSE,RANDOM 141 mg/dL (74-106); MAGNESIUM 2.1 mg/dL (1.8-2.4)
[2024-03-03 07:19] LABS: PHOSPHOROUS 4.2 mg/dL (2.5-4.9); SGOT/AST 13 U/L (15-37); SGPT/ALT 13 U/L (13-61)
[2024-03-03 07:20] LABS: TOT PROT 7.5 g/dl (6.4-8.2)
[2024-03-03 07:21] LABS: BILIRUBIN,TOTAL 0.2 mg/dL (0.2-1)
[2024-03-03 07:22] LABS: ALK PHOS 63 U/L (45-117)
[2024-03-03 07:48] LABS: CREATININE 7.6 mg/dL (0.55-1.3)
[2024-03-03] MEDS: LEVOTHYROXINE NA 125 MCG TABLET (FP) PO SCH (08:00)
[2024-03-03] MEDS ORDERED: PATIENT'S OWN MEDICATION (NON-FORMULARY) (Losartan Potassium [Cozaar] 100 MG Tablet) PO SCH (10:00)
[2024-03-03] MEDS ORDERED: FUROSEMIDE 40 MG TABLET (FP) ONE (10:36)
[2024-03-03] MEDS ORDERED: PANTOPRAZOLE 20 MG TABLET PO ONE (10:36)
[2024-03-03] MEDS: PANTOPRAZOLE 20 MG TABLET PO SCH (10:43)
[2024-03-03] MEDS: FUROSEMIDE 40 MG TABLET (FP) PO SCH (10:43)
[2024-03-03] MEDS: HEPARIN NA (PORCINE) 5,000 UNITS/ML 1ML VIAL IVPUSH ONE (12:15)
[2024-03-03 13:53] VITALS: RESP 18; TEMP 97.8
[2024-03-03 13:54] VITALS: BP 105/72; PULSE 80
[2024-03-03] MEDS ORDERED: SODIUM CHLORIDE 250 ML IV PRN (13:55)
== END 2024-03-03 14:30 | disposition left against medical advice (07) | DRG 638 ==
LOC: JER 12:14 → JERBED 16:36 → J6S 03-03 11:26
PROVIDERS: ADMIT Family Medicine; ATTEND Family Medicine
PROC: 5A1D70Z Performance of Urinary Filtration, Intermittent, Less than 6 Hours Per Day (ICD-10-PCS; principal; 2024-03-03)
DX: E11.628 Type 2 diabetes mellitus with other skin complications (principal); I12.0 Hypertensive chronic kidney disease with stage 5 chronic kidney disease or end stage renal disease; N18.6 End stage renal disease; E03.9 Hypothyroidism, unspecified; D64.9 Anemia, unspecified; E11.22 Type 2 diabetes mellitus with diabetic chronic kidney disease; Z99.2 Dependence on renal dialysis; L08.89 Other specified local infections of the skin and subcutaneous tissue
CPT/HCPCS: 36415; 73610-TC-LT-FY; 73630-TC-LT; 80048; 80053; 82962; 83605; 83735; 84100; 84443; 85025; 85610; 85651; 85730; 86140; 86803; 87040; 87340; 99285-25; J1644

== ENCOUNTER 2024-06-24 12:33 | Emergency (ER) | payer MEDICARE, OTHER ==
[2024-06-24 13:01] VITALS: BP 174/72; PULSE 74; RESP 18; TEMP 98; BMI 42.9
[2024-06-24 13:55] LABS: BASO % 0.3 % (0-2.0); EOS % 0.7 % (0-4.5); HEMATOCRIT 34.1 % (35.4-49); LYMPH % 5.6 % (8-40); MCH 30.7 pg (25.7-33.7); MCHC 32.4 g/dl (32.0-35.9); MEAN PLT VOLUME 8.1 fl (7.5-11.1); NEUT % 85.4 % (42.8-82.8); PLATELET COUNT 218 10^3/uL (134-434); RBC 3.59 M/mm3 (4.00-5.60); RDW 14.9 % (11.9-15.9); WHITE BLOOD COUNT 14.6 K/mm3 (4.0-10.0)
[2024-06-24 14:29] LABS: CHLORIDE 97 mmol/L (98-107); POTASSIUM 3.8 mmol/L (3.5-5.1); SODIUM 135 mmol/L (136-145)
[2024-06-24 14:32] LABS: ALBUMIN 3.2 g/dl (3.4-5.0); ANION GAP 10 mmol/L (4-13); CALCIUM 8.7 mg/dL (8.5-10.1); CO2 28 mmol/L (21-32)
[2024-06-24 14:33] LABS: BLOOD UREA NITROGEN 37.2 mg/dL (7-18); GLUCOSE,RANDOM 236 mg/dL (74-106)
[2024-06-24 14:36] LABS: SGPT/ALT 17 U/L (13-61)
[2024-06-24 14:37] LABS: BILIRUBIN,TOTAL 0.4 mg/dL (0.2-1); TOT PROT 7.7 g/dl (6.4-8.2)
[2024-06-24 14:39] LABS: ALK PHOS 66 U/L (45-117)
[2024-06-24 14:40] LABS: CREATININE 8.2 mg/dL (0.55-1.3)
[2024-06-24 14:46] LABS: SGOT/AST 12 U/L (15-37)
== END 2024-06-24 15:33 | disposition home or self-care (01) ==
LOC: JER 12:33
DX: E16.2 Hypoglycemia, unspecified (principal); T38.3X1A Poisoning by insulin and oral hypoglycemic [antidiabetic] drugs, accidental (unintentional), initial encounter
CPT/HCPCS: 36415; 80053; 82962; 85025; 93005; 93010; 99284-25

== ENCOUNTER 2024-08-23 09:56 | Emergency (ER) | payer MEDICARE, OTHER ==
[2024-08-23 10:04] VITALS: BMI 30.9
[2024-08-23 11:08] LABS: BASO % 0.8 % (0-2.0); EOS % 5.9 % (0-4.5); HEMATOCRIT 36.8 % (35.4-49); HEMOGLOBIN 11.7 GM/dL (11.7-16.9); LYMPH % 14.7 % (8-40); MCH 30.7 pg (25.7-33.7); MCHC 31.9 g/dl (32.0-35.9); MEAN CELL VOLUME 96.3 fl (80-96); MEAN PLT VOLUME 8.6 fl (7.5-11.1); MONO % 7.8 % (3.8-10.2); NEUT % 70.8 % (42.8-82.8); PLATELET COUNT 225 10^3/uL (134-434); RBC 3.82 M/mm3 (4.00-5.60); RDW 14.1 % (11.9-15.9); WHITE BLOOD COUNT 6.9 K/mm3 (4.0-10.0)
[2024-08-23 11:27] LABS: CHLORIDE 101 mmol/L (98-107); POTASSIUM 4.8 mmol/L (3.5-5.1); SODIUM 135 mmol/L (136-145)
[2024-08-23 11:30] LABS: CALCIUM 9.6 mg/dL (8.5-10.1)
[2024-08-23 11:31] LABS: ALBUMIN 3.5 g/dl (3.4-5.0); ANION GAP 8 mmol/L (4-13); CO2 26 mmol/L (21-32); GLUCOSE,RANDOM 143 mg/dL (74-106); MAGNESIUM 2.4 mg/dL (1.8-2.4)
[2024-08-23 11:33] LABS: SGPT/ALT 15 U/L (13-61)
[2024-08-23 11:34] LABS: CREATININE 11.3 mg/dL (0.55-1.3); PHOSPHOROUS 5.1 mg/dL (2.5-4.9); SGOT/AST 16 U/L (15-37)
[2024-08-23 11:35] LABS: BILIRUBIN,TOTAL 0.5 mg/dL (0.2-1); TOT PROT 8.6 g/dl (6.4-8.2)
[2024-08-23 11:36] LABS: ALK PHOS 57 U/L (45-117)
[2024-08-23] MEDS ORDERED: ACETAMINOPHEN 325 MG TABLET (FP) ONE (12:18)
[2024-08-23] MEDS: ACETAMINOPHEN 325 MG TABLET (FP) PO ONE (12:19)
[2024-08-23 12:24] VITALS: BP 137/60; PULSE 72; RESP 20; TEMP 98.9
== END 2024-08-23 12:25 | disposition home or self-care (01) ==
LOC: JER 09:56
DX: R11.2 Nausea with vomiting, unspecified (principal); R19.7 Diarrhea, unspecified; Z20.822 Contact with and (suspected) exposure to COVID-19
CPT/HCPCS: 0241U-QW; 36415; 80053; 83735; 84100; 85025; 99283-25